=== PATIENT | female | born 1990 | race Caucasian/White ===

== ENCOUNTER 2017-09-12 13:27 | Emergency (ER) | payer OTHER, SELFPAY ==
[2017-09-12 13:28] VITALS: BP 137/72; PULSE 85; RESP 14; TEMP 37; O2SAT 100; BMI 34.2
--- NOTE | 2017-09-12 13:45 | RAD_ITS ---
STUDY: X-RAY CHEST REASON FOR EXAM: Female, 26 years old. Shortness of breath. TECHNIQUE: Single AP portable view of the chest. COMPARISON: Comparison is made with prior study dated December 16, 2015. FINDINGS: EKG electrodes are seen. The lungs are clear and expanded. There is no demonstrated pleural abnormality. Normal size heart. Normal mediastinum and arjun. Normal visualized pulmonary arteries. Normal visualized aortic arch and descending thoracic aorta. Normal visualized thoracic spine. Normal visualized ribs, clavicles, and shoulders. There is no demonstrated abnormality of the visualized soft tissue structures of the upper abdomen. RAD/Chest 1 View (Portable) IMPRESSION: Normal x-ray examination of the chest. Electronically Signed: Edd Jones MD at 14:10 EDT Tel [phone], Service support ,
--- NOTE | 2017-09-12 13:45 | EKG12_ITS ---
Test Reason : DIZZINESS Blood Pressure : / mmHG Vent. Rate : 067 BPM Atrial Rate : 067 BPM P-R Int : 124 ms QRS Dur : 086 ms QT Int : 414 ms P-R-T Axes : 035 055 054 degrees QTc Int : 437 ms Normal sinus rhythm Normal ECG Confirmed by INDRA BARRIOS, MIROSLAVA ([id number]), continuity editor BRIANNA DANIEL ([id number]) on 09/17/2017 1:35:46 PM Referred By: BENJAMIN Confirmed By:MIROSLAVA BURRELL MD
[2017-09-12 13:52] LABS: Absolute Lymphocyte Count 2.15 X10^3/ul (0.83-4.51); Absolute Neutrophil Count 3.8 X10^3/uL (2.0-7.7); Basophil# 0.02 X10^3/uL; Basophil% 0.3 % (0-1); Eosinophil# 0.05 X10^3/uL; Eosinophils% 0.8 % (0-5); Hematocrit 41.8 % (37-47); Hemoglobin 14.3 g/dl (12.0-15.0); Lymphocyte # 2.15 X10^3/ul (4.0); Lymphocyte % 33.2 % (19-41); Mean Corp Hgb Conc 34.2 g/gl (32-36); Mean Corpuscular Hgb 30.6 pg (27.0-32.0); Mean Corpuscular Volume 89.5 fL (81-99); Mean Platelet Vol. 10.8 fl (6.2-12.0); Monocyte% 7.7 % (0-10); Neutrophil # 3.75 X10^3/uL (2.7-7.7); Neutrophil % 57.8 % (47-70); POSITIVE COUNT NO; POSITIVE DIFFERENTIAL NO; POSITIVE MORPHOLOGY NO; Platelet Count 259 K/mm3 (150-450); RBC Distribution Width CV 12.4 % (11.6-14.6); RBC Distribution Width SD 40.1 fl (35.1-43.9); Red Blood Count 4.67 M/mm3 (4.2-5.4); White Blood Count 6.5 K/mm3 (4.4-11.0)
--- NOTE | 2017-09-12 13:55 | CT_ITS ---
STUDY: CT BRAIN WITHOUT CONTRAST REASON FOR EXAM: Female, 26 years old. Dizziness. Near syncopal episode. RADIATION DOSAGE (If Supplied By Facility): CTDIvol = ( 44.99 ) mGy, DLP = ( 779.24 ) mGycm TECHNIQUE: Transaxial CT imaging of the brain was performed without administration of intravenous contrast material. Individualized dose optimization techniques were used for this CT. COMPARISON: None. FINDINGS: Normal soft tissue structures. Normal calvarium. Normal size ventricles and extra-axial spaces for the patient's age. Normal white matter tracts of the cerebral hemispheres. Normal basal ganglia and thalami. Normal brainstem. Normal cerebellum. There is no intracranial hemorrhage. There are no findings of an acute ischemic infarction. Mild degree of mucosal thickening of the ethmoid sinuses. CT/Brain/Head without Contrast IMPRESSION: Mild degree of mucosal thickening of the ethmoid sinuses. Electronically Signed: Edd Jones MD at 14:42 EDT Tel [phone], Service support ,
--- NOTE | 2017-09-12 13:59 | ED.DCSUM_ITS ---
- ER Visit Summary Date of Service: 09/12/17 Chief Complaint: [] Dizzy spells on and off for weeks History of Present Illness: The patient is a 26 F [] she reports had dizzy spells on and off for weeks that paroxysmally caused her to feel as if things are spinning she works here in the surgery area, she went to lunch at right after lunch she began to have sense of spinning sensation she needed to lay down she did not have syncope, she has no headache no change in vision #6 paresthesias. Her review of systems otherwise negative no fever no cough she is status post hysterectomy distant as such denies her bowel and bladder habits have been normal No other trigger triggers or exacerbates the dizzy spells that simply come on paroxysmally she usually just lays down until the past she has no HEENT or ear symptoms or findings, she has not seen her physicians yet for this Physical Examination: [] Her vital signs are within normal range her pupils equal reactive extra muscles are full her neck is very supple the lungs are clear the heart tones are normal oral cavity is unremarkable moist lungs are clear the heart tones are clear the abdomen soft slightly BMI 34, upper lower extremities unremarkable neurologically cranial nerves are intact there is full range of extraocular muscles without nystagmus the upper extremities exam is normal motion sensation lower extremity exam normal since sensation her speech is clear and his understand her visual daniel are intact Test Results: [] Emergency Department Course and Treatment: [] Patient's labs EKG all generally unremarkable, head CT shows nothing acute but some ethmoid thickening Patient does not have any clinical signs of sinusitis whenever I was concerned that the ethmoid thickening could be early sinusitis contributing to her intermittent dizziness I explained this to her at this time she will be started on Flonase Augmentin Mucinex Antivert fu her family doctor return for change in symptoms States she is feeling better she understands all the above return for change in symptoms Treatment Plan: [] Disposition: [] Stable Impression: [] Intermittent dizziness, possible ethmoid sinusitis This note was generated with [employer] dictation software. It may contain incorrect words, spelling, and punctuation that were not noted in review of the chart prior to signing ED Disposition - Plan for ED Patient: Chief Complaint: Syncope Referrals: Ty Wong MD [Primary Care Provider] -
[2017-09-12] MEDS: 0.9% Normal Saline 1,000 ML 1000 ML IV (14:03)
[2017-09-12 14:05] LABS: Anion Gap 9 (5-15); BUN 19 mg/dL (7-18); BUN/Creat Ratio 18.8 RATIO (10-20); Calcium,Total 9.1 mg/dL (8.5-10.1); Chloride 105 mmol/L (98-107); Creatinine, Serum 1.01 mg/dL (0.55-1.02); EST Glomerular Filtration Rate 70 mL/min (>60); Est Glom Filt Rate - Afr Amer 84 mL/min (>60); Glucose 82 mg/dL (74-106); Potassium 4.1 mmol/L (3.5-5.1); Sodium Level 142 mmol/L (136-145)
[2017-09-12 14:10] LABS: Pregnancy, Serum, hCG Quali. NEGATIVE Negative (0-9 Nonpreg)
--- NOTE | 2017-09-12 14:56 | ED.DEP ---
ED Disposition - Plan for ED Patient: Chief Complaint: Syncope Instructions: ED Dizziness Syncope Fainting W Pre, ED Sinusitis Abx Tx Prescriptions: levoFLOXacin tablet [Levaquin tablet] 750 mg PO DAILY #10 tab Meclizine HCl [Antivert] 25 mg PO TID PRN PRN #20 tab PRN Reason: Dizziness Fluticasone Propionate [Flonase Allergy Relief] 15.8 ml NS BID #14 spray.susp Guaifenesin [Mucinex] 1,200 mg PO BID #10 tbmp.12hr Referrals: Ty Wong MD [Primary Care Provider] -
[2017-09-12 15:24] VITALS: BP 132/70; PULSE 78; RESP 16; O2SAT 97
== END 2017-09-12 15:25 | disposition home or self-care (01) ==
LOC: ED 14:36
PROVIDERS: Emergency Provider Emergency Medicine; Family Provider Family Medicine; PCP Family Medicine
DX: J32.2 Chronic ethmoidal sinusitis (principal); R42 Dizziness and giddiness
CPT/HCPCS: 70450; 71045; 80048; 84703; 85025; 93005; 99283; J7030; A4216

== ENCOUNTER 2017-09-16 09:06 | Emergency (ER) | payer OTHER, SELFPAY ==
[2017-09-16 09:07] VITALS: BP 132/92; PULSE 82; RESP 18; TEMP 36.9; O2SAT 100; BMI 34.3
--- NOTE | 2017-09-16 09:17 | RAD_ITS ---
STUDY: X-RAY - LUMBAR SPINE REASON FOR EXAM: Female, 26 years old. Low back pain and bilateral lower extremity pain following injury. TECHNIQUE: 3 view(s) of the lumbar spine were obtained. COMPARISON: None FINDINGS: Normal lumbar lordosis. There is no substantial scoliosis. There is a normal alignment of the vertebrae. Normal vertebral bodies and endplates. Normal disc space heights. There is lumbarization of the S1 vertebrae. The soft tissue structures are unremarkable. RAD/Lumbar Spine 2 or 3 Views IMPRESSION: Normal x-ray examination of the lumbar spine. Electronically Signed: dEd Jones MD at 10:15 EDT Tel [phone], Service support ,
--- NOTE | 2017-09-16 09:21 | ED.DCSUM_ITS ---
- ER Visit Summary Date of Service: 09/16/17 Chief Complaint: Back pain History of Present Illness: The patient is a 26 F with low back pain that started suddenly yesterday. She was at the gym and putting down a 40 pound weight bar. The pain is in her lower back and it is worse with moving and bending. She never had this before. She took some Tylenol this morning with minimal relief. Patient has a history of anxiety, depression, bipolar disorder , hysterectomy, C-sections, and ankle surgery. Physical Examination: Vital signs unremarkable. Afebrile. Patient is sitting upright, self bracing her back. Appears uncomfortable but not toxic or in distress. Heart regular. No respiratory distress. Abdomen soft and nontender. Back is tender to palpation over the lower lumbar spine. Straight leg raise negative. Neurovascular intact distally. Good strength and sensation. Skin appears normal. Test Results: Because of the midline spine pain, x-rays were obtained. Emergency Department Course and Treatment: Patient was treated with Norflex and Toradol while awaiting results of her x-rays. Patient had continued pain and also received a dose of subcutaneous Dilaudid. X -ray's were negative. Patient had continued pain but was able to ambulate. She had good strength, sensation, and normal reflexes. She has no findings to suggest infection. Nothing to suggest a nerve issue, fracture, or vascular issue. I suspect this is myofascial back pain from a spasm. She will be prescribed anti-inflammatories and Flexeril. She will go home to rest and follow-up with her PCP. Return for any new or worsening issues. Treatment Plan: As above Disposition: Discharged Impression: 1. Acute low back pain This note was generated with [employer] dictation software. It may contain incorrect words, spelling, and punctuation that were not noted in review of the chart prior to signing ED Disposition - Plan for ED Patient: Chief Complaint: Back Referrals: Ty Wong MD [Primary Care Provider] -
[2017-09-16] MEDS: Orphenadrine 60 MG/2 ML Ampul IM (09:23)
[2017-09-16] MEDS: Ketorolac 30 MG/ML Syringe IM (09:24)
[2017-09-16] MEDS: HYDROmorphone 1 MG/ML Syringe SC (10:11)
--- NOTE | 2017-09-16 10:50 | ED.DEP ---
ED Disposition - Plan for ED Patient: Chief Complaint: Back Instructions: ED Spasm Back No Trauma Prescriptions: Naproxen [Naprosyn] 500 mg PO BID PRN #20 tab Cyclobenzaprine [Flexeril] 10 mg PO TID PRN #20 tab PRN Reason: Muscle Spasm Referrals: Ty Wong MD [Primary Care Provider] -
[2017-09-16] MEDS: Triamcinolone Acetonide 40 MG/ML Vial IM (11:04)
[2017-09-16 11:07] VITALS: BP 125/86; PULSE 86; RESP 17; O2SAT 98
[2017-09-16] MEDS: HYDROcodone Bitartrate/Apap 5/325 Tablet PO (11:43)
== END 2017-09-16 11:44 | disposition home or self-care (01) ==
PROVIDERS: Emergency Provider Emergency Medicine; Family Provider Family Medicine; PCP Family Medicine
DX: M54.5 Low back pain (principal); F41.9 Anxiety disorder, unspecified; F31.9 Bipolar disorder, unspecified; B00.9 Herpesviral infection, unspecified; Z79.899 Other long term (current) drug therapy
CPT/HCPCS: 72100; 96372; 99282

== ENCOUNTER → 2017-10-02 10:53 | Outpatient (CLI) | payer OTHER, SELFPAY ==
[2017-10-02 13:27] LABS: Rubella IgG 98.8 IU/mL
[2017-10-04 10:15] LABS: Hep B Surface Antibodies Reactive (.); Mumps Antibody,IgG < 9.0 AU/mL (Immune >10.9); Rubeola IgG Ab < 25.0 AU/mL (Immune >29.9); V-Zoster IgG (Immunity) 452 index (Immune >165)
== END ==
PROVIDERS: Family Provider Family Medicine; PCP Family Medicine; Visit Provider Family Medicine
DX: Z02.89 Encounter for other administrative examinations (principal)
CPT/HCPCS: 36415; 86706; 86735; 86762; 86765; 86787

== ENCOUNTER → 2017-10-04 10:13 | Outpatient (CLI) | payer OTHER, SELFPAY ==
--- NOTE | 2017-10-04 10:14 | US_ITS ---
STUDY: THYROID ULTRASOUND REASON FOR EXAM: Female, 26 years old. Asymmetric thyroid enlargement, right larger than left TECHNIQUE: Ultrasound evaluation of the thyroid was performed with real-time and static santana-scale imaging. COMPARISON: None. FINDINGS: RIGHT LOBE: The right lobe of the thyroid gland measures 5.7 x 1.9 x 1.6 cm. There is a homogeneous echotexture. There are 2 solid nodules of the right thyroid lobe extending into the isthmus. The nodules measure 1.7 x 1.7 x 1.5 cm and 2.4 x 1.8 x 1.6 cm. Both nodules are slightly hypoechoic with well-defined relatively hypoechoic capsule. No microcalcifications are seen. There is mild degree of intrinsic vascular flow both nodules. LEFT LOBE: The left lobe of the thyroid gland measures 4.3 x 1.7 x 1.2 cm. There is a homogeneous echotexture. Solitary hypoechoic nodule measuring 9 mm without vascular flow, irregular margins or microcalcifications. ISTHMUS: The isthmus measures 4 mm. The regional lymph nodes are normal. US/Thyroid IMPRESSION: 1. Multinodular thyroid gland measures 2.4 cm on the right side. FNA sampling is recommended, per ACR guidelines. Electronically Signed: Diego Becker MD at 8:07 EDT , Service support ,
== END ==
PROVIDERS: Family Provider Family Medicine; PCP Family Medicine; Visit Provider Family Medicine
DX: E07.89 Other specified disorders of thyroid (principal)
CPT/HCPCS: 76536

== ENCOUNTER → 2017-11-07 08:24 | Outpatient (CLI) | payer OTHER, SELFPAY ==
--- NOTE | 2017-11-07 08:27 | NM_ITS ---
CLINICAL: 26-year-old female with reported history of thyroid nodularity I-123 THYROID UPTAKE and SCAN COMPARISON: Thyroid ultrasound report 10/04/2017 FINDINGS: The patient was administered a 309 uCi I-123 capsule by mouth. The 4-hour I-123 radioactive iodine thyroidal uptake was calculated to be 22.4 % (normal 5 to 25 %). The 24-hour I-123 radioactive iodine thyroidal uptake was calculated to be 44.9 % (normal 5 to 40 %). The I-123 thyroid scan demonstrates a focus of increased radiopharmaceutical concentration noted in the right lobe inferior pole-isthmus with otherwise relative decreased- homogeneous radiopharmaceutical concentration throughout remaining thyroid colloid of a U-shaped thyroid gland. There are no colloidal parenchymal hypofunctioning-cold nodules noted in either lobe of the thyroid gland. NM/Thyroid Uptake Single or Mult IMPRESSION: 1. UPPER LIMITS OF NORMAL 4- and abnormal elevated 24-hour I-123 radioactive iodine thyroidal uptakes. 2. 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 Electronically Signed: Jhonatan Peterson DO at 8:26 EDT Tel , Service support ,
== END ==
PROVIDERS: Family Provider Family Medicine; PCP Family Medicine; Visit Provider Family Medicine
DX: E04.1 Nontoxic single thyroid nodule (principal)
CPT/HCPCS: 78012; A9516

== ENCOUNTER → 2017-11-13 09:01 | Outpatient (CLI) | payer OTHER, SELFPAY ==
--- NOTE | 2017-11-12 14:30 | ASPS_PTH ---
PATIENT: KENDRA BARNES LOC: [facility] U#:[id number] AGE/SX: 34/F ROOM: RE11/13/[address]: Dr. Inder Manriquez MD : 1990 BED: DIS: SPEC #: [id number] RECD: 11/13/17 09:00 STATUS: YVETTE WILLIE #: [id number] LOUIE: 11/12/17 14:[address]: Inder Manriquez DEPT: CYTOLOGY RECD BY: Hong Tadeo ENTERED: 11/13/17 10:33 SP TYPE: ASPIRATION OTHR DR: Dr. Ty Wnog MD Tissues: A - Thyroid gland, NOS B - Thyroid gland, NOS C - Thyroid gland, NOS Procedures: Special Stain Group II Cytology Other HEADER OPERATION: Bilateral thyroid FNA PRE-OP DIAGNOSIS: Bilateral thyroid nodules TISSUE SUBMITTED: A ? Right thyroid inferior nodule 4 slides, B ? Left thyroid nodule 4 slides, C ? Right thyroid superior nodule 4 slides DIAGNOSIS CYTOLOGY A. Right thyroid, inferior nodule, FNA (smears): Cellular follicular lesion with atypical follicular cells of undetermined significance. Adequate for evaluation. B. Left thyroid nodule, FNA (smears): Atypical follicular cells noted, suspicious for papillary thyroid carcinoma. Adequate for evaluation. C. Right thyroid, superior nodule, FNA (smears): Atypical follicular cells of undetermined significance. Adequate for evaluation. SJ:rg 11/14/17 COMMENT Correlation with clinical, radiologic findings and appropriate follow up are necessary. Case has been reviewed in consultation with Dr. Sinha who concurs with the above diagnosis. IDC:AM CYTOLOGY STUDY Slides are reviewed. CYTOLOGY GROSS A - Received are four smears labeled with the patient's name and designated per the requisition as right thyroid inferior nodule. Submitted for staining. B - Received are four smears labeled with the patient's name and designated per the requisition as left thyroid nodule. Submitted for staining. C - Received are four smears labeled with the patient's name and designated per the requisition as right thyroid superior nodule. Submitted for staining. / 11/13/17 TC:5 CPT: 71720 x3
== END ==
PROVIDERS: Family Provider Family Medicine; PCP Family Medicine; Visit Provider Surgery
DX: E04.1 Nontoxic single thyroid nodule (principal)
CPT/HCPCS: 88161; 88313

== ENCOUNTER 2017-12-18 09:45 | Observation (INO) | payer OTHER, SELFPAY ==
[2017-12-16 07:53] LABS: Hematocrit 41.1 % (37-47); Hemoglobin 13.8 g/dl (12.0-15.0); Mean Corp Hgb Conc 33.6 g/gl (32-36); Mean Corpuscular Volume 89.3 fL (81-99); Mean Platelet Vol. 10.6 fl (6.2-12.0); Platelet Count 255 K/mm3 (150-450); RBC Distribution Width CV 12.5 % (11.6-14.6); RBC Distribution Width SD 40.4 fl (35.1-43.9); White Blood Count 7.8 K/mm3 (4.4-11.0)
[2017-12-16 07:54] LABS: Scan Indicated on CBC? Y/N NO
[2017-12-16 08:27] LABS: Anion Gap 14 (5-15); BUN 14 mg/dL (7-18); Calcium,Total 8.9 mg/dL (8.5-10.1); Chloride 105 mmol/L (98-107); EST Glomerular Filtration Rate 70 mL/min (>60); Est Glom Filt Rate - Afr Amer 85 mL/min (>60); Glucose 103 mg/dL (74-106); Phosphorus 3.2 mg/dL (2.5-4.9); Potassium 3.4 mmol/L (3.5-5.1); Sodium Level 145 mmol/L (136-145); Thyroid Stim Hormone (TSH) 1.36 uIU/mL (0.358-3.74)
[2017-12-18] VITALS (11 sets, daily range): BP systolic 111–144; BP diastolic 64–94; PULSE 75–118; RESP 16–18; TEMP 35.8–36.8; O2SAT 93–98; BMI 35.1
--- NOTE | 2017-12-18 | PARA_PTH ---
PATIENT: KENDRA BARNES LOC: [facility] U#:[id number] AGE/SX: 27/F ROOM: NC322 RE12/18/[address]: Dr. Inder Manriquez MD : 1990 BED: 1 DIS: 12/19/2017 SPEC #: [id number] RECD: 12/18/17 09:06 STATUS: YVETTE WILLIE #: [id number] LOUIE: 12/18/17 00:[address]: Inder Manriquez DEPT: SURGICAL PATHOLOGY RECD BY: Elisa Swanson ENTERED: 12/18/17 09:35 SP TYPE: PARATHY OTHR DR: Dr. Ty Wong MD Tissues: A - Parathyroid B - Lymph node of neck, NOS C - Thyroid gland, NOS D - Lymph node of neck, NOS E - Lymph node of neck, NOS Procedures: Frozen Section (charge) Surgery Specimen Level IV Surgery Specimen Level V Frozen (no charge) HEADER OPERATION: Thyroidectomy, total with central lymph node sampling PRE-OP DIAGNOSIS: Multiple thyroid nodules TISSUE SUBMITTED: A ? Sent fresh at 09 ? Is this lymph node or parathyroid? ? right superior neck lymph node, B ? Sent fresh at 09 ? left inferior neck lymph node or parathyroid?, C ? Total thyroid gland ? suture in anterior/superior aspect of right lobe ? sent in formalin, D ? Sent in saline fresh ? central compartment lymph node, E ? Sent in saline fresh ? additional left inferior neck lymph node FROZEN SECTION DIAGNOSIS A. Right superior neck, is this lymph node or parathyroid?, biopsy: Parathyroid tissue. SJ:roney 12/18/17 B. Left inferior neck lymph node, biopsy: Fibrofatty tissue. AM:roney 12/18/17 Case has been reviewed in consultation with Dr. Mccallum who concurs with the above diagnosis. IDC:CHRISTIANO MICROSCOPIC DIAGNOSIS A. Right superior neck soft tissue, biopsy: Parathyroid tissue. B. Left inferior neck lymph node, biopsy: Fibrofatty tissue. No evidence of lymphoid tissue. C. Thyroid, total thyroidectomy: Papillary thyroid carcinoma. One benign lymph node. See cancer checklist below. See comment. D. Central compartment lymph node, biopsy: Parathyroid tissue. E. Additional inferior neck soft tissue, biopsy: Four out of four lymph nodes negative for malignancy. AM:roney 12/20/17 COMMENT THYROID CANCER SUMMARY: Procedure ? total thyroidectomy Specimen integrity - intact Specimen size ? right lobe 4 x 3 x 2 cm, left lobe 3 x 2.5 x 1 cm and isthmus 1.5 x 0.5 x 0.5 cm Specimen weight ? 18.4 gm Tumor focality ? multifocal (right lobe, left lobe and extending into isthmus) Dominant tumor: Tumor laterality ? right lobe Tumor size ? right lobe dominant tumor ? 3 x 1.5 x 1.2 cm Right lobe mass ? 1.5 cm in diameter. Left lobe tumor ? 0.7 x 0.5 x 0.5 cm Histologic type ? papillary carcinoma Variant ? classical and follicular Margins ? uninvolved by carcinoma Tumor capsule ? not present Lymph-Vascular invasion ? not identified Extrathyroidal extension ? not identified Lymph nodes (specimens C & E) Number examined ? 5 out of 5 lymph nodes with no evidence of metastasis. Additional pathologic findings ? colloid nodules PATHOLOGIC STAGE: pT2 N0 Mx The above summary is in compliance with [employer] (CAP) Cancer Protocols Checklist and [place] Joint Committee on Cancer (AJCC), Staging Manual, 8th Ed. All three tumors are similar in appearance and are completely contained within the thyroid gland. The margins are negative for all three tumors. No tumor has a capsule. No lymphvascular invasion is identified in any of the tumor. There is no extra parathyroidal extension or perineural invasion by carcinoma identified in any of the three tumors. Immunohistochemistry ([id number]) supports the above diagnosis. MICROSCOPIC DESCRIPTION Slides are reviewed. GROSS DESCRIPTION A - Received fresh for frozen section consultation labeled with the patient's name is a specimen designated lymph node/parathyroid tissue. The specimen consists of an irregular fragment of parker-pink soft tissue measuring 0.3 x 0.3 x 0.2 cm. The specimen is submitted in its entirety for frozen section consultation in one block. / AM: 12/18/17 B - Received fresh for frozen section consultation labeled with the patient's name is a specimen designated left inferior neck lymph node. The specimen consists of an irregular fragment of parker-pink soft tissue measuring 0.3 x 0.3 x 0.1 cm. The specimen is submitted in its entirety for frozen section consultation in one block. / AM: 12/18/17 C - Received in fixative is one container labeled with the patient's name and designated total thyroid, suture in anterior/superior aspect of right lobe. The specimen consists of a total thyroidectomy specimen weighing 18.4 gm. Also present in the container are two detached pieces of adipose tissue and pink-red soft tissue measuring 2 x 1.5 x 0.3 cm and 0.5 x 0.5 x 0.2 cm. The thyroid is oriented by a suture. The right lobe measures 4 x 3 x 2 cm and left lobe measures 3 x 2.5 x 1.5 cm and the isthmus measures 1.5 x 0.5 x 0.5 cm. The suture appears to be present in the anterior-inferior aspect of the lobe. No external parathyroid tissue is identified. The specimen is inked as follows: posterior surface right lobe, left lobe and isthmus ? black, anterior surface right lobe ? blue, anterior surface left lobe ? green and anterior surface isthmus ? yellow. Serial sections of the left lobe reveal a parker, solid nodule in the lower portion of the left lobe measuring 0.7 x 0.5 x 0.5 cm. This nodule focally also extends into the isthmus. Sections of the right lobe reveal two nodules in the middle and lower portion of the thyroid lobe. Both nodules are present side by side. One of the nodules has parker-white appearance and measures 1.5 cm in diameter and the second nodule has parker-pink solid cut surfaces and measures 3 x 1.5 x 1.2 cm. The entire specimen is submitted in 17 cassette as follows: 1 ? detached pieces of tissue, 2 ? isthmus, 3-8 ? left lobe (cassettes 5 & 6 contain the nodule, cassette 3 contains the most superior portion of the thyroid lobe and cassette 8 contains the most inferior portion of the thyroid lobe), 9-17 ? right lobe (9 contains the most superior portion of the lobe and 17 contains the most inferior portion of the lobe). / SJ:roney 12/19/17 D - Received in saline is one container labeled with the patient's name and designated central compartment lymph node. The specimen consists of an irregular fragment of yellow fatty tissue measuring 1.5 x 1 x 0.2 cm. The specimen is submitted in its entirety in one cassette. / AM:roney 12/18/17 E - Received in saline is one container labeled with the patient's name and designated additional inferior neck. The specimen consists of multiple irregular fragments of yellow fatty tissue that in aggregate measure 2.5 x 1.5 x 0.2 cm. The specimen is submitted in its entirety in one cassette. / AM:roney 12/18/17 TC:0 CPT: 83811, 15034 x4, 91770 x2
--- NOTE | 2017-12-18 | IMM_PTH ---
PATIENT: KENDRA BARNES LOC: [facility] U#:[id number] AGE/SX: 27/F ROOM: MS322 RE12/18/[address]: Dr. Inder Manriquez MD : 1990 BED: 1 DIS: 12/19/2017 SPEC #: [id number] RECD: 12/23/17 14:30 STATUS: YVETTE REQ #: [id number] LOUIE: 12/18/17 00:[address]: Inder Manriquez DEPT: IMMUNOHISTOCHEMISTRY RECD BY: Elisa Swanson ENTERED: 12/23/17 14:32 SP TYPE: IMMUNO OTHR DR: Dr. Ty Wong MD Tissues: C - Thyroid gland, NOS Procedures: CD56 (add) CK19 (add) GAL-3 (add) TTF1 (add) TTF1 (initial) PHYSICIAN & INSTITUTION [place] [id number] SPECIMEN INFORMATION: Tissue Source: C ? Total thyroid gland Clinical Info: Multiple thyroid nodules Specimen Number: [id number] C CPT code: 45403, 13045 x10 METHODOLOGY: Deparaffinized sections of prefer/formalin-fixed tissue or PAP/DQ stained slides are incubated with monoclonal/polyclonal antibodies/oligonucleotide probes. Localization is made via biotin free immunoperoxidase method. Appropriate controls are performed and reacted as expected. Results on target cell population are indicated in the following table: RESULTS: ANTIBODY / CLONE RESULT Block C5 TTF-1 (8G7G3/1) positive GAL3 (9C4) positive CK19 (A53-B/A2.26) positive CD56 (123C3.D5) negative Block C10 GAL3 (9C4) negative CK19 (A53-B/A2.26) negative CD56 (123C3.D5) negative Block C16 TTF-1 (8G7G3/1) positive GAL3 (9C4) positive CK19 (A53-B/A2.26) positive CD56 (123C3.D5) negative These tests were developed and their performance characteristics determined by [facility]. They may not have been cleared or approved by the U.S. Food and Drug Administration. The FDA has determined that such clearance or approval is not necessary. INTERPRETATION: C. Total thyroid gland, thyroidectomy: Papillary thyroid carcinoma. AM:roney 12/26/17 Case has been reviewed in consultation with Dr. Mccallum who concurs with the above diagnosis. IDC:CHRISTIANO
--- NOTE | 2017-12-18 06:57 | PCM.DC.GS ---
<Inder Manriquez - Last Filed: 12/18/17 06:57> Discharge Diet: Light diet - advance as tolerated - if you have questions about your diet instructions, please talk to you doctor. Discharge Activity: May Not Drive - for 1 week or while taking narcotic pain medicine. May shower in (days): 1 Lifting Restrictions: 10 pounds Call your doctor if your incision/area has: Continuous Slow Oozing, Sudden Increased Bleeding, Increased Pain/ Swelling, Increased Redness, Foul Smelling Discharge Call your doctor if you observe: Fever of 101 or Higher Suture Line Care: Avoid Pulling/Pushing, Avoid Pinching/Bending Additional Dressing/Incision Instructions:: You may cover your incision with gauze and tape as needed to help protect from clothing. The surgical glue will gradually wear off over 1-2 weeks Allergies/Adverse Reactions: Allergies Penicillins Allergy (Verified 12/09/17 10:24) Hives hydroxyzine [From Vistaril] Adverse Reaction (Verified 12/09/17 10:24) makes me angry Medications to take at Discharge buPROPion SR [Wellbutrin SR (150mg tablets)] 150 mg PO BID 12/16/15 Lamotrigine [Lamictal Xr] 100 mg PO BID 03/25/16 Valacyclovir HCl [Valacyclovir] 500 mg PO DAILY 09/22/16 traZODone [Desyrel] 50 mg PO QHS PRN PRN 09/22/16 Amitriptyline HCl 25 mg PO QHS 05/22/17 Hydrocodone Bitart/Apap 5-325 [[place] 5MG-325MG] 1 tablet PO Q6H PRN PRN 2 Days #8 tablet 12/18/17 Levothyroxine [Synthroid] 150 mcg PO DAILY #90 tab 12/18/17 Calcitriol [Rocaltrol] 0.25 mcg PO BID #28 cap 12/19/17 Calcium Citrate 200 mg PO TID #42 tab 12/19/17 Cholecalciferol (VIT D3) [Vitamin D3] 2,000 unit PO BID #56 tab 12/19/17 The following prescriptions were given: Hydrocodone Bitart/Apap 5-325 [[place] 5MG-325MG] 1 tablet PO Q6H PRN PRN 2 Days #8 tablet PRN Reason: Pain Levothyroxine [Synthroid] 150 mcg PO DAILY #90 tab Calcitriol [Rocaltrol] 0.25 mcg PO BID #28 cap Cholecalciferol (VIT D3) [Vitamin D3] 2,000 unit PO BID #56 tab Calcium Citrate 200 mg PO TID #42 tab Primary Care Physician: Ty Wong MD [Primary Care Provider] - Test Results: Test results from this visit will be discussed in further detail at your follow-up appointment, if applicable. Please Follow Up With: Inder Manriquez MD - [phone] When: Call to make an appointment to be seen in about 10 days. <Piper Raphael - Last Filed: 12/19/17 14:11> Test Results: Test results from this visit will be discussed in further detail at your follow-up appointment, if applicable.
[2017-12-18] MEDS: Bupivacaine 0.5% PF 10 ML VIAL ×2 (09:42)
--- NOTE | 2017-12-18 09:52 | PCM.OPRPT ---
Problem List (1) Multiple thyroid nodules Status: Acute Report of Operation Date of Procedure: 12/18/17 Pre-Operative Diagnosis: Atypical bilateral thyroid nodules Post-Operative Diagnosis: Same Surgery/Procedure Performed:: Total thyroidectomy, central lymph node inspection Description of Surgical Findings:: Timeout and informed consent was obtained. 27-year-old female was taken out from placement table under general ventricular-based anesthesia. Neck was gently extended and her neck was prepped transverse suprasternal incision was created sharp dissection was carried down through the substance tissue densities small flaps were raised the strap muscle was incised vertically and then a portion of the left strap muscle was incised this gain access to the superior pole of the left tedious sharp and blunt dissection using Harmonic scalpel and were needed hemoclips were used for hemostasis superior pole vessels identified secured then the middle thyroidal vein was identified secured all with harmonic scalpel the inferior pole a stress test there was some fatty 550 fullness and I carefully dissected free identifying the parathyroid and that portion of the tissue great care was taken to dissect directly upon the gland I was then able to rotate the gland anterior and see the course of the recurrent laryngeal nerve. Dissection was performed directly upon the posterior aspect of the gland as it was dissected off the anterior surface the trachea. The pyramidal lobe was then dissected free carefully was Harmonic Scalpel. In a similar fashion I address the right lobe which was larger than the left and had several extra nodules. Carefully and tediously the superior pole inferior pole and then medial aspect was addressed the gland could be rotated anteriorly and then I could identify the location of the superior parathyroid on the right inferior parathyroid on the right the course of the recurrent laryngeal nerve that dissection was performed directly off the anterior surface of trachea as on the left third ligament of various transected again were needed hemo-stasis was obtained with the harmonic and hemoclips if needed the gland was removed the sutures placed in the anterior superior aspect the right lobe. That portion of the procedure actually went in a very expeditious fashion. I then took some central fibrofatty tissue from the mid inferior portion of the neck. I explored the inferior neck left neck area and submitted some tissue that I thought possibly held lymph nodes. Frozen section suggested some fibrofatty tissue I felt that there was likely some lymph node tissue in there. I then inspected the right mid neck area and so doing identified gland which I thought was lymph node I sampled that in the right mid neck ended up being parathyroid that the vein had only been sampled the remainder that is nicely in place and nicely vascularized. The position of the inferior right parathyroid identify the inferior left parathyroid identified. Palpation and visualization failed to reveal any gross lymph node enlargement. At this point felt that further dissection was not indicated. I placed fibular in each side of the neck. The wound was closed by approximating the strap muscles in the midline with interrupted 3-0 Vicryl at the position was approximately the same the skin edges affect interrupted 5-0 Vicryl subdermal stitches. The william-incisional areas anesthetized with 10 cc of 0.5% Marcaine. Surgical glue was applied followed by Telfa and tape dressings. Sponge and instrument and needle counts were reported the surgeon be correct. Blood loss was minimal. Specimens include the total thyroid. Tissue from the inferior left neck felt to be likely lymph node tissue. Tissue from the inferior midline neck. Tissue from the right mid neck which on frozen section was a very small sampled fragment of the right superior parathyroid. Drains none. Blood loss minimal. Inder Manriquez M.D., F.A.C.S. Type of Anesthesia:: General Anesthesiologist: Zaire Elizabeth
[2017-12-18] MEDS: Morphine 4 MG/ML Syringe IV ×2 (12:10→14:45)
[2017-12-18] MEDS: buPROPion (SR) 150 MG Tablet.SA PO ×2 (12:48→20:52)
[2017-12-18] MEDS: 0.9% NaCl Peripheral Flush Adult/Peds IV ×2 (14:46→15:05)
[2017-12-18] MEDS: lamoTRIgine 100 MG Tablet PO ×2 (14:51→20:52)
[2017-12-18] MEDS: Ondansetron 4 MG/2 ML Vial IV (15:04)
[2017-12-18 15:42] LABS: Calcium,Total 8.6 mg/dL (8.5-10.1)
--- NOTE | 2017-12-18 18:24 | PCM.PN.BLA ---
Progress Note Pt will slight voice waver [place] positive neck supple Mild nausea Will continue to observe
[2017-12-18] MEDS: Calcitriol 0.25 MCG Capsule PO (19:22)
[2017-12-18] MEDS: Calcium Carbonate 500 MG Tablet 1000 MG PO (19:22)
[2017-12-18] MEDS: HYDROcodone Bitartrate/Apap 5/325 Tablet PO (19:22)
[2017-12-18] MEDS: Amitriptyline 25 MG Tablet PO (20:53)
[2017-12-18] MEDS: traZODone 50 MG Tablet PO (22:24)
[2017-12-18] MEDS: Lactated Ringers 1,000 ML 30 ML IV (22:29)
[2017-12-19 00:40] VITALS: BP 133/82; PULSE 84; RESP 14; TEMP 36.6; O2SAT 95
[2017-12-19] MEDS: Morphine 4 MG/ML Syringe IV ×2 (00:44→13:29)
[2017-12-19] MEDS: 0.9% NaCl Peripheral Flush Adult/Peds IV ×2 (00:45→13:29)
--- NOTE | 2017-12-19 05:37 | PCM.PN.SRG ---
Subjective: Pt more comfortable than yesterday - Physical Exam HEENT: - - supple, NT, [place] positive Vital Signs Temp Pulse Resp BP Pulse Ox 97.8 F 84 14 133/82 H 95 12/19/17 00:40 12/19/17 00:40 12/19/17 00:40 12/19/17 00:40 12/19/17 00:40 Oxygen Delivery Method Room Air Weight: 231 lb 0.711 oz Body Mass Index (BMI) 35.1 Intake and Output for Last 24 Hours 12/17/17 12/18/17 12/19/17 23:59 23:59 23:59 Intake Total 2835 / 2835 986 / 986 Output Total 1400 / 1400 1500 / 1500 Balance 1435 / 1435 -514 / -514 Laboratory Tests Past 24 Hrs 12/18/17 15:08 Calcium 8.6 Medical Necessity - Tobacco Use Smoking Status: Never smoker Tobacco Use: Cigarettes, Vapor Assessment/Plan All Active Problems (Last Updated 12/02/17 @ 14:32 by Melanie Laboy) Multiple thyroid nodules (Acute) Abdominal pain of unknown etiology (Acute) Voice wavers but a clear E is present Will await labs to determine homegoing meds
[2017-12-19 05:43] VITALS: BP 120/68; PULSE 97; RESP 16; TEMP 37; O2SAT 97
[2017-12-19] MEDS: HYDROcodone Bitartrate/Apap 5/325 Tablet PO ×3 (05:49→17:44)
[2017-12-19] MEDS: Levothyroxine 150 MCG Tablet PO (05:49)
[2017-12-19] MEDS: Calcium Carbonate 500 MG Tablet 1000 MG PO ×3 (09:22→15:58)
[2017-12-19] MEDS: lamoTRIgine 100 MG Tablet PO (09:24)
[2017-12-19] MEDS: buPROPion (SR) 150 MG Tablet.SA PO (09:24)
[2017-12-19] MEDS: Calcitriol 0.25 MCG Capsule PO (09:24)
[2017-12-19] MEDS: Acetaminophen 325 MG Tablet 650 MG PO (10:28)
--- NOTE | 2017-12-19 10:39 | NURSING ---
C/o Headache and neck pain. Tylenol given as it is not time for [place]. Pt laying in bed visiting with visitors. Has been walking [place] frequently this morning.
--- NOTE | 2017-12-19 14:51 | NURSING ---
Laying on Rt side in bed. Eyes closed. Appears to be sleeping. No distress.
[2017-12-19 15:53] VITALS: BP 123/64; PULSE 87; RESP 16; TEMP 37.1; O2SAT 97
[2017-12-19 17:03] LABS: Calcium,Total 8.7 mg/dL (8.5-10.1)
== END 2017-12-19 17:50 | disposition home or self-care (01) ==
LOC: SDC 10:46 → MS3 10:46
PROVIDERS: Admitting Provider Surgery; Family Provider Family Medicine; PCP Family Medicine; Visit Provider Surgery
PROC: (CPT 60240; principal; 2017-12-18 07:00)
DX: C73 Malignant neoplasm of thyroid gland (principal); F17.210 Nicotine dependence, cigarettes, uncomplicated; F31.9 Bipolar disorder, unspecified; Z79.899 Other long term (current) drug therapy; J45.909 Unspecified asthma, uncomplicated; F41.9 Anxiety disorder, unspecified
CPT/HCPCS: 00320; 60240; 36415; 80048; 82310; 84100; 84443; 85027; 88305; 88307; 88331; 88341; 88342; 94762; 96374; 96375; 96376; 99218; J7120; A4216; G0378; G0379; J2405

== ENCOUNTER → 2017-12-25 10:53 | Outpatient (CLI) | payer OTHER, SELFPAY ==
[2017-12-25 11:23] LABS: Calcium,Total 9.1 mg/dL (8.5-10.1)
== END ==
PROVIDERS: Family Provider Family Medicine; PCP Family Medicine; Visit Provider Physician Assistant
DX: E04.2 Nontoxic multinodular goiter (principal)
CPT/HCPCS: 36415; 82310

== ENCOUNTER → 2018-01-02 12:46 | Outpatient (CLI) | payer OTHER, SELFPAY ==
[2018-01-02 13:18] LABS: Calcium,Total 9.1 mg/dL (8.5-10.1)
== END ==
PROVIDERS: Physician Assistant; Family Provider Family Medicine; PCP Family Medicine; Visit Provider Surgery
DX: E83.51 Hypocalcemia (principal); C73 Malignant neoplasm of thyroid gland; E03.9 Hypothyroidism, unspecified
CPT/HCPCS: 36415; 82310; 84443

== ENCOUNTER → 2018-02-24 14:36 | Outpatient (CLI) | payer OTHER, SELFPAY ==
[2018-02-24 17:18] LABS: Free T3 < 0.5 pg/mL (2.18-3.98); T4 Free Direct 0.14 ng/dL (0.76-1.46)
== END ==
PROVIDERS: Family Provider Family Medicine; PCP Family Medicine; Referring Provider Internal Medicine Endocrinology, Diabetes & Metabolism; Visit Provider Internal Medicine Endocrinology, Diabetes & Metabolism
DX: E04.2 Nontoxic multinodular goiter (principal)
CPT/HCPCS: 36415; 84439; 84443; 84481

== ENCOUNTER → 2018-02-26 08:30 | Outpatient (CLI) | payer OTHER, SELFPAY ==
--- NOTE | 2018-02-26 08:33 | NM_ITS ---
CLINICAL: 27-year-old female with history of thyroid carcinoma presenting for diagnostic I-131 whole body scintigraphy status post thyroidectomy. I-131 WHOLE BODY SCINTIGRAPHY COMPARISON: None available FINDINGS: Following the oral administration of 4.28 mCi of I-131, whole body images obtained at 48 hours post radiopharmaceutical administration reveal: 1. Prominent radiopharmaceutical concentration is identified in the anterior midline neck-thyroid bed. 2. Normal physiologic distribution of the radiopharmaceutical is identified in the facilitated uptake is noted within the stomach, intestinal tract, the urinary bladder. NM/Thyroid Whole Body I-131 Scan IMPRESSION: 1. The increase in radiopharmaceutical concentration identified in the anterior midline neck-thyroid bed is most consistent with visualization of a postoperative thyroid remnant. 2. There is no definitive scintigraphic evidence of iodine avid distant metastatic disease. Electronically Signed: Jhonatan Peterson DO at 23:12 EDT Tel , Service support ,
== END ==
PROVIDERS: Family Provider Family Medicine; PCP Family Medicine; Referring Provider Internal Medicine Endocrinology, Diabetes & Metabolism; Visit Provider Internal Medicine Endocrinology, Diabetes & Metabolism
DX: C73 Malignant neoplasm of thyroid gland (principal)
CPT/HCPCS: 78018; A9528

== ENCOUNTER 2018-04-15 09:00 | Outpatient (RCR) | payer OTHER, SELFPAY ==
--- NOTE | 2018-04-15 09:10 | BH.SGPN.GN ---
Behaviors/Verbalizations/Mental Status: [] Eye contact is good. Motor activity is appropriate. Appearance is casual. Speech is Appropriate. Mood is anxious. Affect is congruent. Thoughts are linear and logical. No evidence of psychosis. Reviewed daily check in sheet and no reports of suicidal ideations or intent. Client Response/Progress/Benefit: [] Pt participated in group discussion. Emotion for today is anxious. This is pt's first day in the IOP program and she reports being very anxious. Shared that she has been trying hard to not cry all morning. She reports that crying spells have been very frequent for her. Reports that she started IOP to find ways to better manage her anxiety and depression. Group provided support and there was a positive discussion on managing how other's reaction when we cry. No progress noted as this was pt's first day. Hesitant to share however was attentive. Benefited from group support and encouragement. 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 Narrative Note: []
--- NOTE | 2018-04-15 10:10 | BH.SGPN.GN ---
Behaviors/Verbalizations/Mental Status: [] Pt eye contact good, casually dressed, motor activity appropriate, speech normal rate and tone, mood euthymic, congruent affect, thoughts linear and intact, no evidence of delusions or hallucinations. Client Response/Progress/Benefit: []Pt passive participant AEB pt listening to others and only contributing to discussion if elicited by therapist. Pt's passive participant could be attributed to the fact it's pt's first day in IOP. Pt appeared to agree with peers that utilizing healthy skills is difficult because it's easier to revert back to old ways of coping AEB pt nodding her head. Pt identified three things she learned from session is: isolation can cause increased problems, increased awareness of how negative coping impacts her, and build a strong base of healthy coping to help manage stressors. Pt seemed to benefit from increased awareness of impact unhealthy coping has on her functioning. Narrative Note: []
--- NOTE | 2018-04-15 11:15 | BH.SGPN.GN ---
Behaviors/Verbalizations/Mental Status: [] Pt eye contact good, casually dressed, motor activity appropriate, speech normal rate and tone, mood depressed, congruent affect, thoughts linear and intact, no evidence of delusions or hallucinations. Client Response/Progress/Benefit: []Pt contributing to group if elicited by therapist and listened attentively to others. Pt worked cooperatively with peers to identify various healthy coping skills. Pt recognized importance of having healthy internal skills, not an overreliance on just one category of healthy skills. Pt identified five healthy coping skill she is willing to practice includes: talking with others, journaling, mindful eating, positive affirmations, and taking an outside perspective of different situations. Pt seemed to benefit from increasing repertoire of healthy coping as well as identifying 5 skills she is willing to practice. Pt to continue IOP level of care to decrease depression, increase open communication, and prevent decompensation. Narrative Note: []
--- NOTE | 2018-04-17 09:00 | BH.SGPN.GN ---
Behaviors/Verbalizations/Mental Status: [] Eye contact is good. Motor activity is appropriate. Appearance is casual. Speech is Appropriate. Mood is anxious. Affect is congruent. Thoughts are linear and logical. No evidence of psychosis. Reviewed daily check in sheet and no reports of suicidal ideations or intent. Client Response/Progress/Benefit: [] Pt was an active participant in group discussion. Emotion for today is Marla and reports feeling welcome. Reports that she was anxious about starting the IOP program two days ago however believes that the groups are already proving beneficial stating that she has not cried in two days. Reports that crying spells were daily and occurred several times throughout the day. Feeling more supported and not alone in depression. Shared that she is stressed about the upcoming week as she has radioactive iodine treatment and has to isolate per physician orders. She cannot have contact with family and spends her day alone watching TV. Also unable to attend IOP. Group discussed her strategy for managing her emotions next week and she states nothing I can do. Group provided some suggestions and feedback. Progress noted per pt report. Will continue in IOP to prevent decompensation, stabilize mood, improve functioning to return to work. Narrative Note: []
--- NOTE | 2018-04-17 10:00 | BH.SGPN.GN ---
Behaviors/Verbalizations/Mental Status: []Pt left group early to meet with IOP nurse. Pt was not billed for group service. Client Response/Progress/Benefit: [] Narrative Note: []
--- NOTE | 2018-04-17 10:50 | BH.NA ---
Physical Data - Vital Signs Pulse Rate: 82 - Height/Weight Height: 1.73 m Weight:: 106.141 kg Weight in Pounds: 234.0 lbs Current Medication Compliance - Medication Compliance Do you take your medication as prescribed?: Yes Do you need assistance with taking medication?: No Have you had side effects from medication?: No Nutritional History - Appetite Nutritional Instructions:: If client shows signs of a swallowing problem, weight change of 10 pounds or more in the last month, or is on a diabetic diet, the physician will review and request a dietitian consult, as appropriate. All unintentional weight loss will be referred to the physician for decision on need for dietitian consult. Describe your appetite:: Fair Have you noticed a change in your eating habits lately?: No Functional Assessment - Sleep Pattern Describe any problems with sleeping: Difficulty falling and staying asleep, which client attributes to rumination and anterior neck pain. - Activities Motor Activity:: Functional Sensory/Communication Assess - Vision Problems Do you have any vision problems?: Glasses - Hearing Problems Do you have any hearing problems?: Adequate - Communication Problems Do you have difficulty understanding what people are saying?: No Do you have trouble putting your thoughts into words or expressing what you want to say?: No Do people ever have trouble understanding what you say?: No What is your primary language?: Romanian Learning Assessment - Education What is your level of education?: Some College - Learning Barriers Learning Barriers:: Ready to learn Medical Problems/History - Metabolic Conditions Metabolic: Hypothyroidism - post-thyroidectomy - Cancer History Type of Cancer:: Thyroid - Pain Assessment Do you have acute or chronic pain?: Yes - Female Reproductive Do you think you may be ?: No Number of pregnancies:: 3 Number of children:: 2 Have you reached menopause?: No Do you have any history of breast disease?: No - Family History Family History: Family History (Last Reviewed 03/12/18 @ 13:27 by Melanie Laboy) Mother CAD (coronary artery disease) Surgical History - Surgical History Have you had any surgeries? If so, list type and date:: Yes - see PMHx Substance Abuse - Substance Abuse Please describe substance abuse in the last 30 days:: Social ETOH use, former occasional smoker (<2 pack years). Denies any substance use. <1 caffeinated beverage daily. Mental Status Summary - Mental Status Significant Findings/Observations on Appearance and Mood:: A&Ox4, casually dress with appropriate grooming and hygiene. Client is cooperative with interview and makes good eye contact. Activity is normal with steady gait. Speech is clear and of regular rate and volume. Moderate depression and anhedonia. Mood congruent and appropriate affect. Logical associations and normal process. Average knowledge and insight. No symptoms of delusions. Denies hallucinations, SI, and HI. Good attention and concentration. Suicide Assessment - Suicidal Ideation Are you currently or have you been suicidal in the past?: No Suicidal Intentional Rating Scale (SIRS): No suicidal thoughts (past or present) Physician Notification: If Active suicidal thoughts/Will not contract for safety is checked, contact physician and document in the Physician Notification section below. Assault History/Potential - History of Assault Do you have a history of assaulting someone?: No Physician Notification: If yes, notify physician and document notification date and time below. Past Psychiatric History - MH Treatment Hx Age of first mental health symptoms: 14 or 15 years old Fall Risk Assessment - Age Age: Less than 60 - Mental Status Mental Status: Willing & able to ask for assistance when needed - Physical Status Physical Status: No problems - Impairments Impairments: None - Elimination Elimination: Continent AND independent - Gait or Balance Gait or Balance: Walks independently - Hx of Falls History of falls in the past 6 months: No known history - Medications/Substances Psychotropics:: Antidepressants, Mood stabilizers Medications/substances used within the past 24 hours or ordered to administer: 3 or more of the medications/substances listed above - Total Score Total Points:: 2 RN Summary of Impressions - Impressions Recommendations: Include psychiatric and medical issues, treatment planning recommendations, and discharge planning needs. Impressions: Psychiatric Issues: bipolar disorder 2, MDD Impression: General Medical Conditions: papillary thyroid carcinoma s/p thyroidectomy - Level of Care How do the client's current symptoms and functional deficits support need for this level of care?: Client endorses uncontrollable crying, isolation, lack of interest in anything, and inability to work, all of which have been increasing in severity since her thyroid cancer diagnosis in Dec 2017 (4 months prior). She describes panic attacks during which she cries and has hyperventilation. Pelon is also having increasing difficulty falling asleep at night related to rumination and worry. She is able to identify that she is unable to perform her job responsibilities at this time, but the financial strain that comes with not working is causing strain on her marriage as she does not have any sick or vacation time remaining, thus is not having any income while she is off on FMLA. 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 She notes that she has struggled with depression since she was in high school, but has never had anything this severe. Client notes that she is still in shock about her cancer diagnosis, and has not processed or dealt with the emotional toll it is taking on her. IOP will promote gains, provide social support, prevent further decompensation, and establish coping skills for client to use.
--- NOTE | 2018-04-17 11:10 | BH.SGPN.GN ---
Behaviors/Verbalizations/Mental Status: [] Pt eye contact good, casually dressed, motor activity appropriate, speech normal rate and tone, mood euthymic, congruent affect, thoughts linear and intact, no evidence of delusions or hallucinations. Client Response/Progress/Benefit: []Pt active participant AEB pt engaging in group activity, contributing to discussion, and attentive to peers. When processing activity pt identified the group was able to be resilient by staying positive and focusing on the goal. Pt reported she has learned from session that it's important to use external positive influences to help reach your goal, learn from mistakes, and maintain positive thoughts. Pt reported on her stress ball she wrote take care of yourself. Pt shared that phrase will help remind her she can be resilient. Pt seemed to benefit from engaging in activity to rehearse the different resiliency building blocks. Pt to continue IOP level of care to increase positive thinking, decrease depression, and prevent decompensation. Narrative Note: []
[2018-04-17 13:43] VITALS: PULSE 82
--- NOTE | 2018-04-18 07:07 | BH.COMM ---
Communication Note - Communication with Client Communication Note: Called in to cancel today due to illness therefore will not be seen by psychiatrist. Pt will be out next week due to recieving radioactive iodine treatment. Plan is to return on 04/28/18
--- NOTE | 2018-04-18 12:07 | BH.MTP ---
[facility] Treatment Plan - Patient Information Program Physician:: Dr. Delgado Primary Therapist:: Patrizia Ferreira, [facility] - Psychiatric Diagnoses Psychiatric Diagnoses:: Major Depressive Disorder, Recurrent, Moderate Diagnosis Code(s):: F33.1 - Estimated LOS Estimated LOS (in weeks):: 6 Problem/Goal #1 - Problem/Goal #1 Stated Goal:: Client will reduce depression and feelings of hopelessness due to Major Depressive Disorder through Intensive Outpatient Program. Description of Barriers: Pt's poor communication, distorted thought patterns, low energy and negative self-talk could be barriers to treatment. Pt also will be off one week for cancer treatment and it is unknown how the treatment might physically impact her which could be barrier to treatment if pt unable to attend IOP consistently. Functional Impact: Pt's mental health symptoms are making it challenging for pt to complete work duties. 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 Pt stated although she is takign care of her kids basic needs she recognizes her depression is keeping her from being engaged with her kids. Pt having marital discord which exasperates pt's mental health symptoms. Pt not funcitoning at baseline. Goal Relevant Strengths/Supports: Pt is intelligent, resilient, and verbalizes motivation to get better. - Objectives Objective #1 Stated Objective: Client will identify 2-3 depressive thinking patterns and be able to challenge and replace negative thoughts. Interventions: Therapist will assist client in identifying depressive thinking patterns and provide client with resources to help teach client strategies in defeating negative thoughts. Discharge Criteria: Client will have met this objective when can identify at least two depressive thinking patterns and be able to defeat or reframe depressive thoughts. Target Date: 05/30/18 Review Date: 05/16/18 Objective #2 Stated Objective: Pt will decrease depressive symptoms AEB pt?s score on the DSM 5 cross-cutting measure and improve pt?s daily functioning. Interventions: Through groups and individual therapy, pt will be provided with education on cognitive distortions, mistaken beliefs, and identifying and combating negative self-talk. Therapist will assist pt with getting back into the activities she once enjoyed as well as increasing healthy coping strategies. Discharge Criteria: Pt will have met this goal when pt?s score on the DSM 5 cross cutting measure for depression has been decreased and per pt?s report daily functioning has improved. Target Date: 05/30/18 Review Date: 05/16/18 Problem/Goal #2 - Problem/Goal #2 Stated Goal:: Stabilize anxiety level while increasing ability to function on daily basis. Description of Barriers: Pt's poor communication, distorted thought patterns, low energy and negative self-talk could be barriers to treatment. Pt also will be off one week for cancer treatment and it is unknown how the treatment might physically impact her which could be barrier to treatment if pt unable to attend IOP consistently. Functional Impact: Pt's mental health symptoms are making it challenging for pt to complete work duties. 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 Pt stated although she is takign care of her kids basic needs she recognizes her depression is keeping her from being engaged with her kids. Pt having marital discord which exasperates pt's mental health symptoms. Pt not funcitoning at baseline. Goal Relevant Strengths/Supports: Pt is intelligent, resilient, and verbalizes motivation to get better. - Objectives Objective #1 Stated Objective: Client will learn and utilize 2-3 healthy coping strategies to manage anxious symptoms. Interventions: Therapist will assist client in learning internal coping strategies to manage anxious symptoms, along with helping client identify triggers. Discharge Criteria: Client will have achieved this goal when can verbalize and is consistently applying at least 2 healthy coping strategies to manage anxiety. Target Date: 05/30/18 Review Date: 05/16/18 Objective #2 Stated Objective: Pt will decrease anxious symptoms AEB pt?s score on the DSM 5 cross-cutting measure improve pt?s daily functioning. Interventions: Through groups and individual therapy, pt will be provided education about anxiety?s impact on body and common physiological reaction to anxiety. Therapist will teach pt appropriate breathing techniques and build healthy coping skills to manage daily anxieties. Discharge Criteria: Pt will have met this goal when pt?s score on the DSM 5 cross cutting measure for anxiety has been decreased and per pt?s report daily functioning has improved. Target Date: 05/30/18 Review Date: 05/16/18
--- NOTE | 2018-04-28 11:35 | BH.COMM ---
Communication Note - Communication with Client Communication Note: Spoke with pt this AM. She has completed her Radiation Iodine Treatment and is cleared to return to IOP program. She plans to attend , , and Saturday of this week.
--- NOTE | 2018-04-30 09:05 | BH.SGPN.GN ---
Behaviors/Verbalizations/Mental Status: [] Pt eye contact good, casually dressed, motor activity appropriate, speech normal rate and tone, mood dysthymic, constricted affect, thoughts linear and intact, no evidence of delusions or hallucinations. Reviewed client?s symptom tracker, no signs of suicidal ideation, plan, or intent as of today. Client Response/Progress/Benefit: []Pt listened attentively to others and added comments during discussion. Pt reported one positive is completing her cancer treatment last week. However, reported the negative is experiencing various side effects from the cancer treatment including difficulty concentrating and exhaustion. Pt initially struggled with identifying another positive, but eventually identified she kept herself entertained during cancer treatment by watching [place] movies. Pt seemed to benefit from support by peers. Pt to continue IOP level of care to decrease depression, increase use of healthy coping, and prevent decompensation. Narrative Note: []
--- NOTE | 2018-04-30 10:10 | BH.SGPN.GN ---
Behaviors/Verbalizations/Mental Status: [Client maintained good eye contact, casually dressed wearing a sweatshirt and hair straightened, motor activity appropriate, speech normal rate and tone, mood dysthymic, congruent affect, thoughts linear and logical, no evidence of delusions or hallucinations reported or observed.] Client Response/Progress/Benefit: [Client receptive of attending session and willingly participated in group AEB discussing group topic and completing reflection activity. Client made connections with input provided by fellow participants regarding stress and the various factors impacting stress levels. She provided a personal example of how ignoring a stressor can result in additional or more intense stress levels later on. Benefitted from increasing awareness of impact stressors have on mental health and ability to function when stress is not managed. Client expressed current stressors to include: her mental and physical health, having a cancer diagnosis, finances, relationships with others, and her job. Client progress noted in ability to connect minimization and avoidance with increased stress levels and difficulties in managing mental health symptoms. Client recommended continued IOP to improve ability to cope with current stressors, increase positive self-talk, and prevent decompensation.] Narrative Note: []
--- NOTE | 2018-04-30 11:17 | BH.SGPN.GN ---
Behaviors/Verbalizations/Mental Status: []Client alert and oriented, casual dress, hygiene good. Eye contact good. Motor activity appropriate. Speech within normal limits- trying to encourage others through humor. Affect full-smiling and laughing, mood euthymic. Thoughts linear, logical, no signs of hallucinations or delusions. Client Response/Progress/Benefit: []Client responded somewhat well to session, engaged in activity, but quiet during discussion. Client engaged in the activity and at first was using humor to encourage peers, but then she began to take herself out of the activity when she made a mistake. Client able to connect the activity to dealing with stress in her life. Client shared negative self-talk can negatively impact how one manages stress as it can lead to a ?I can?t? mindset. Client listened as the group identified strategies to increase stress management. Client helped the group process the four A?s of stress. Client stated she has been trying to work on acceptance of stressors out of her control. Client used her cancer diagnosis as an example of practicing acceptance. Client appeared to benefit from practicing in the moment coping strategies and learning techniques to better manage stress. Progress limited as missed a week due to radiation treatment. Client to continue IOP to reduce depression and increase mood stability.
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
--- NOTE | 2018-05-02 09:00 | BH.SGPN.GN ---
Behaviors/Verbalizations/Mental Status: [] Eye contact is good. Motor activity is appropriate. Appearance is casual. Speech is Appropriate. Mood is anxious. Affect is congruent. Thoughts are linear and logical. No evidence of psychosis. Reviewed daily check in sheet and no reports of suicidal ideations or intent. Client Response/Progress/Benefit: [] Pt was an active participant in group discussion. Emotion for today is good but anxious about tomorrow. Shared with the group significant progress in regards to depression and anxiety this week. Shared that she is feeling more stable however is extremely anxious about a stressor tomorrow. Shared how she has struggled with this work related stressor and does not feel that she is supported. Discussed fear that anxiety will return and lead to difficulty getting to work. She discussed at length the negative thoughts that she encounters that make this stressor overwhelming. Group provided feedback and offered some suggestions to combat negative thoughts. Progress noted per pt report. Will remain in IOP to prevent decompensation, stabilize mood, and aid in transition back to work. Narrative Note: []
--- NOTE | 2018-05-02 10:05 | BH.SGPN.GN ---
Behaviors/Verbalizations/Mental Status: []Client alert and oriented, casual dress, hygiene good. Eye contact good. Motor activity appropriate. Speech within normal limits. Affect full-smiling and laughing, mood euthymic. Thoughts linear, logical, no signs of hallucinations or delusions. Client Response/Progress/Benefit: []Client responded well to session, active participant. Client provided to the discussion of how positive and negative forces in a person?s life can impact mental health. Client connected to the garden metaphor regarding positive and negative forces in life. Client stated negative forces can be rigid boundaries and unexpected life changes. Client reported positive forces are ?things that counteract the negative? such as positive affirmations and pets. Client engaged in the activity and provided ideas and encouragement. Client stated it is important for to find balance when dealing with positive and negative forces in life. Client appeared to benefit from gaining insight to how the positive and negative forces in a person?s life impact mental health. Client to continue IOP to prevent decompensation and increase mood stability.
--- NOTE | 2018-05-02 11:15 | BH.SGPN.GN ---
Behaviors/Verbalizations/Mental Status: [] Pt eye contact good, casually dressed, motor activity appropriate, speech normal rate and tone, mood anxious, congruent affect, thoughts linear and intact, no evidence of delusions or hallucinations. Client Response/Progress/Benefit: []Pt listened attentively to others, engaged during small group discussion, and shared thoughts and feelings. Pt reported personal positive forces to include:self-awareness, finding the root of her issues, opening up more to close friends/family, medications, making overwhelming things more manageable. Pt shared personal negative forces to include: self-awareness and self-doubt, fear of negative opinions from others, toxic people, unhealthy coping skills, and lack of boundaries. Pt identified she will work on decreasing self-doubt and negativity by reinforcing positive by using positive affirmations. Pt seemed to benefit from increased awareness of her positive and negative forces as well as identifying a strategy to help decrease impact of negative forces. Pt to continue IOP level of care to stabilize moods, increase self-esteem, and prevent decompensation. Narrative Note: []
--- NOTE | 2018-05-05 09:04 | BH.SGPN.GN ---
Behaviors/Verbalizations/Mental Status: [Eye contact is good. Motor activity appropriate -some fidgeting as client discussed current frustrations. Appearance casual wearing a sweatshirt. Speech Appropriate rate and tone. Mood agitated, depressed. Affect is congruent. Thoughts linear, logical, intact. No evidence of delusions or hallucinations. Reviewed daily check in sheet and no reports of suicidal ideations or intent] Client Response/Progress/Benefit: [Client receptive of session, providing input throughout and supportive feedback to peers. She indicated current mood as ?disconnected? and went on to share ongoing feelings of numbness or not being present in her own life. Client discussed that she has been struggling with this since receiving her cancer diagnosis. She did well to identify that she has not been processing her emotions but notes not knowing how to communicate with her her needs or reflect for herself. She shared an example of struggling to know what she needed when feeling dysregulated following returning to work this weekend and ended up crying in her car. Client shared not knowing if she needs space or to be comforted. Client benefitted from support provided by the group and displayed progress in her ability to identify a need for improved awareness of current stressors and what has helped her to cope in the past as well as openly communicating her concerns with her . Client recommended continued IOP tx to improve ability to communicate needs with her supports, challenge distorted thought patterns, and prevent decompensation.] Narrative Note: []
--- NOTE | 2018-05-05 11:30 | BH.SGPN.GN ---
Behaviors/Verbalizations/Mental Status: [] Eye contact is good. Motor activity is appropriate. Appearance is casual. Speech is Appropriate. Mood is depressed. Affect is flat. Thoughts are linear and logical. No evidence of psychosis. Tearful at times Client Response/Progress/Benefit: [] Pt was an active participant in group discussion and activity. Pt was able to identify several obstacles to improving mental wellness. Group identified several obstacles. Pt specifically reports self-doubt, feeling like she is a burden, and focusing to much on other's opinions as obstacles that hinder her progress. Group worked together to identify some strategies to overcome certain obstacles which includes; developing small realistic goals, journaling, decreasing isolation, becoming active in online groups, constantly re-evaluating mood, progress, and goals, exploring options to improve mental health and emotional well-being, positive affirmations, and being honest with self and others. Benefited from group by identifying obstacles to wellness as well as some strategies to overcome obstacles. Will continue in IOP to prevent decompensation, maintain safety, and decrease depression. Narrative Note: []
--- NOTE | 2018-05-05 13:07 | BH.MDN_ITS ---
Multi-Disciplinary Note - Note 60-min Individual Time Started:: 13:30 Date: 05/01/18 Purpose of session/treatment goals addressed:: Purpose of session was to assess pt's current symptoms and stressors. Other topics included: gathering background information, goal setting, and psychoedcuation. Eye Contact:: Fair Motor Activity:: Restless Appearance:: Casual Speech:: Appropriate Mood:: Depressed Affect:: Congruent Thoughts:: Linear, Logical, No evidence of hallucinations/delusions noted Staff Interventions:: Therapist used open ended questions to elicit pt's current symptoms and stressors. Therapist used probing questions to gather additional background information. Therapist reviewed pt's goals for treatment. Therapist provided pyschoeducation about connection between thoughts, feelings, and behavior. Therapist provided homework for pt to complete thought log. Client Response:: Pt reported she is happy to be done with her cancer treatment and now just waits to find out if the treatment worked. Pt shared she has sought help because she hasn't really addressed her thoughts or emotions about having cancer. Pt reported she doesn't talk about her emotions, which pt shared she is starting to recognize keeping her emotions in is not helping her feel better. Pt shared her ability to function at work and complete daily tasks at home started to suffer over the past month which was the driving force that pushed pt to get help. Pt reported she would like to work on decrease her negative self-talk. Pt shared majority of her negative self-talk is in regards to how she is not a good enough mother. Pt shared she also wants to work on setting boundaries because she often takes on too many things which results in her feeling overwhelmed and increases anxiety. Pt reported she could benefit from focusing on self-care b ecause it's an area she doesn't put much time or effort into. Pt connected with the cognitive triangle, recognizing her negative thoughts impact her emotions and behavior. Pt agreeable to complete thought log to help pt increase awareness of her unhelpful thought patterns. Risks/Concerns:: Pt denies suicidal ideation, plan or intention to date. Progress Toward Goals/Plan:: Pt progress limited given pt has only attended IOP 3 times due to taking off a week of IOP to complete her cancer treatment. Pt verbalizes motivation to get better. Pt to continue IOP level of care to decrease depression, increase healthy coping skills, and prevent decompensation. Time Stopped:: 14:30
--- OUTSIDE RECORDS SUMMARY | 2018-06-01 09:59 | XMS RPT_ITS ---
:1990 Author Organization [place] Support Name Relationship Address Phone ERICH WELCH/COLLETTE Unavailable [address] + [place] [address] JATINDER BARNES JR Unavailable [address] + [place] [address] WC Unavailable [address] + [place] [address] YURI, ERICH/COLLETTE Unavailable [address] + [place] [address] JATINDER BARNES JR Unavailable [address] + [place] [address] [facility] Unavailable [address] + [place] [address] YURI, ERICH/COLLETTE Unavailable [address] + [place] [address] JATINDER BARNES JR Unavailable [address] + [place] [address] [facility] Unavailable [address] + [place] [address] YURI, ERICH/COLLETTE Unavailable [address] + [place] [address] JATINDER BARNES JR Unavailable [address] + [place] [address] [facility] Unavailable [address] + [place] [address] YURI, ERICH/COLLETTE Unavailable [address] + [place] [address] MOLLY JR, JATINDER Unavailable [address] + [place] [address] [facility] Unavailable [address] + [place] [address] DRAVENSTOTT, ERICH/COLLETTE Unavailable [address] + [place] [address] MOLLY BLANK, JATINDER Unavailable [address] + [place] [address] [facility] Unavailable [address] + [place] [address] DRAVENSTOTT, ERICH/COLLETTE Unavailable [address] + [place] [address] MOLLY BLANK JATINDER Unavailable [address] + [place] [address] [facility] Unavailable [address] + [place] [address] DRAVENSTOTT, ERICH/COLLETTE Unavailable [address] + [place] [address] MOLLY BLANK, JATINDER Unavailable [address] + [place] [address] [facility] Unavailable [address] + [place] [address] DRAVENSTOTT, ERICH/COLLETTE Unavailable [address] + [place] [address] RONNIE BARNES JRITH Unavailable [address] + [place] [address] [facility] Unavailable [address] + [place] [address] DRAVENSTOKYLE, ERICH/COLLETTE Unavailable [address] + [place] [address] RONNIE BARNES JRITH Unavailable [address] + [place] [address] [facility] Unavailable [address] + [place] [address] DRAVENSTOTT, ERICH/COLLETTE Unavailable [address] + [place] [address] MOLLY JR, JATINDER Unavailable [address] + [place] [address] [facility] Unavailable [address] + [place] [address] DRAVENSTOTT, ERICH/COLLETTE Unavailable [address] + [place] [address] MOLLY JR, JATINDER Unavailable [address] + [place] [address] [facility] Unavailable [address] + [place] [address] DRAVENSTOTT, ERICH/COLLETTE Unavailable [address] + [place] [address] MOLLY JR, JATINDER Unavailable [address] + [place] [address] [facility] Unavailable [address] + [place] [address] DRAVENSTOTT, ERICH/COLLETTE Unavailable [address] + [place] [address] MOLLY JR, JATINDER Unavailable [address] + [place] [address] [facility] Unavailable [address] + [place] [address] DRAVENSTOTT, ERICH/COLLETTE Unavailable [address] + [place] [address] MOLLY JR, JATINDER Unavailable [address] + [place] [address] [facility] Unavailable [address] + [place] [address] DRAVENSTOTT, ERICH/COLLETTE Unavailable [address] + [place] [address] MOLYL JR, JATINDER Unavailable [address] + [place] [address] [facility] Unavailable [address] + [place] [address] DRAVENSTOTT, ERICH/COLLETTE Unavailable [address] + [place] [address] MOLLY JR, JATINDER Unavailable [address] + [place] [address] [facility] Unavailable [address] + [place] [address] DRAVENSTOTT, ERICH/COLLETTE Unavailable [address] + [place] [address] MOLLY JR, JATINDER Unavailable [address] + [place] [address] [facility] Unavailable [address] + [place] [address] DRAVENSTOTT, ERICH/COLLETTE Unavailable [address] + [place] [address] MOLLY JR, JATINDER Unavailable [address] + [place] [address] [facility] Unavailable [address] + [place] [address] DRAVENSTOTT, ERICH/COLLETTE Unavailable [address] + [place] [address] MOLLY JR, JATINDER Unavailable [address] + [place] [address] [facility] Unavailable [address] + [place] [address] DRAVENSTOTT, ERICH/COLLETTE Unavailable [address] + [place] [address] MOLLY JR, JATINDER Unavailable [address] + [place] [address] [facility] Unavailable [address] + [place] [address] DRAVENSTOTT, ERICH/COLLETTE Unavailable [address] + [place] [address] MOLLY JR, JATINDER Unavailable [address] + [place] [address] [facility] Unavailable [address] + [place] [address] DRAVENSTOTT, ERICH/COLLETTE Unavailable [address] + [place] [address] MOLLY JR, JATINDER Unavailable [address] + [place] [address] [facility] Unavailable [address] + [place] [address] DRAVENSTOTT, ERICH/COLLETTE Unavailable [address] + [place] [address] MOLLY JR, JATINDER Unavailable [address] + [place] [address] [facility] Unavailable [address] + [place] [address] DRAVENSTOTT, ERICH/COLLETTE Unavailable [address] [phone] [place] [address] MOLLY JR, JATINDER Unavailable [address] + [place] [address] [facility] Unavailable [address] + [place] [address] DRAVENSTOTT, ERICH/COLLETTE Unavailable [address] [phone] [place] [address] MOLLY JR, JATINDER Unavailable [address] + [place] [address] [facility] Unavailable [address] + [place] [address] DRAVENSTOTT, ERICH/COLLETTE Unavailable [address] [phone] [place] [address] MOLLY JR, JATINDER Unavailable [address] + [place] [address] [facility] Unavailable [address] + [place] [address] Care Team Providers Name Role Phone Gail Bautista Referring Unavailable Ty Wong Primary Care Unavailable ZULEYKA JUÁREZ Attending Unavailable Donavon REGALADO, Piper Consulting Unavailable LALITA GARCIA Attending Unavailable LALITA GARCIA Referring Unavailable Ty Wong Primary Care Unavailable Ty Wong Primary Care Unavailable Michael Celis Attending Unavailable Wong, Ty Primary Care Unavailable Aquilino Flores Attending Unavailable Wong, Ty Attending Unavailable Wong, Ty Primary Care Unavailable Wong, Ty Attending Unavailable Wong, Ty Referring Unavailable Wong, Ty Primary Care Unavailable Cebul, Inder Attending Unavailable Wong, Ty Referring Unavailable Wong, Ty Primary Care Unavailable Wong, Ty Attending Unavailable Wong, Ty Referring Unavailable Wong, Ty Primary Care Unavailable Cebul, Inder Attending Unavailable Wong, Ty Referring Unavailable Wong, Ty Primary Care Unavailable Cebul, Inder Attending Unavailable Wong, Ty Primary Care Unavailable Cebul, Inder Referring Unavailable Cebul, Inder Attending Unavailable Cebul, Inder Referring Unavailable Wong, Ty Primary Care Unavailable Cebul, Inder Admitting Unavailable Cebul, Inder Attending Unavailable Wong, Ty Referring Unavailable Wong, Ty Primary Care Unavailable Raphael PA-C, Piper Attending Unavailable Wong, Ty Referring Unavailable Wong, Ty Primary Care Unavailable Raphael PA-C, Piper Attending Unavailable Wong, Ty Primary Care Unavailable Cebul, Inder Attending Unavailable Wong, Ty Referring Unavailable Wong, Ty Primary Care Unavailable Cebul, Inder Attending Unavailable Cebul, Inder Referring Unavailable Wong, Ty Primary Care Unavailable Raphael PA-C, Piper Attending Unavailable Wong, Ty Referring Unavailable Wong, Ty Primary Care Unavailable Raphael PA-C, Piper Attending Unavailable Wong, Ty Referring Unavailable Wong, Ty Primary Care Unavailable Cebul, Inder Attending Unavailable ASSESSMENT, HEALTH RISK Attending Unavailable ASSESSMENT, HEALTH RISK Referring Unavailable Wong, Ty Primary Care Unavailable Raghunathan, Gail N. Attending Unavailable Raghunathan, Gail N. Referring Unavailable Wong, Ty Primary Care Unavailable Raghunathan, Gail N. Attending Unavailable Raghunathan, Gail N. Referring Unavailable Wong, Ty Primary Care Unavailable Raghunathan, Gail N. Attending Unavailable Wong, Ty Primary Care Unavailable Raghunathan, Gail N. 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 / E04.2(ICD-10) Hospital Repository 03/11/2018 Unknown C73 - Malignant Donavon REGALADO, Active [place] neoplasm of thyroid [facility] gland / C73(ICD-10) Hospital Repository 01/14/2018 Unknown T81.30XA - Donavon REGALADO, Active [place] Disruption of wound, [facility] unspecified, initial Hospital encounter / Repository T81.30XA(ICD-10) 12/31/2017 Unknown E83.51 - CebuInder vu Active [place] Hypocalcemia / Community E83.51(ICD-10) Hospital Repository 12/19/2017 Unknown G89.18 - Other acute CebuInder vu Active [place] postprocedural pain Community / G89.18(ICD-10) Hospital Repository 11/07/2017 Unknown E04.1 - Nontoxic Ty Wong Active [place] [facility] nodule / Hospital E04.1(ICD-10) Repository 10/04/2017 Unknown E07.9 - Disorder of Ty Wong Active [place] thyroid, unspecified Community / E07.9(ICD-10) Hospital Repository 10/02/2017 Unknown Z02.89 - Encounter Ty Wong Active [place] [facility] other [facility] administrative Hospital examinations / Repository Z02.89(ICD-10) PROCEDURES PROCEDURES No Procedure Records FoundRESULTS RESULTS THERAPY I-131 Observed: 04/23/2018 Status: F Source: [place] 11:51 [facility] REPOSITORY [facility] Imaging Services [address] [place] [address] Therapy I-131 MR#: [id number] Acct: [id number] Name: KENDRA BARNES Rep #: [id number] : 1990 F 27 From: Jhonatan Peterson DO PCP: Ty Wong MD Status: REG CLI Study: Therapy I-131 Date of Exam: 04/23/18 Exam# [id number] Ordering Dr: Emi Romero,Out o. CLINICAL: 27-year-old female presenting for I-131 ablative therapy for known thyroid carcinoma. I-131 RADIOIODINE THERAPY NARRATIVE: The proper identification of the patient and verification of the I-131 dose was accomplished prior to I-131 provision. The patient was administered 165 mCi of I-131 per os. Prior to dosing, all risks, benefits and potential complications were explained in detail. Accordingly, an informed consent was obtained. The patient tolerated the ingestion without incident. Post therapeutic precautions and instructions were provided and understood. The patient will be followed as an outpatient by Dr. Bautista. Electronically Signed: Jhonatan Nicholas, at 23:13 EST Tel , Service support , NM/Therapy I-131 CC: Gail Bautista MD; Ty Wong MD; OUT OF TOWN DOCTOR [employer]: Signed CBC W/DIFF, AUTOMATED Collected: 04/23/2018 Status: F Source: [place] 11:39 AM [facility] REPOSITORY TYPE CODE TESTS RESULT OUT OF RANGE REFERENCE UNITS LAB L100.1000 4.4-11.0 K/mm3 Normal WBC 7.2 LAB L100.1200 4.2-5.4 M/mm3 Normal RBC 4.87 LAB L100.1300 12.0-15.0 g/dl Normal HGB 14.7 LAB L100.1400 37-47 % Normal HCT 43.9 LAB L100.1500 81-99 fL Normal MCV 90.1 LAB L100.1600 27.0-32.0 pg Normal MCH 30.2 LAB L100.1700 32-36 g/gl Normal MCHC 33.5 LAB L100.1810 11.6-14.6 % Normal RDW CV 12.9 LAB L100.1820 35.1-43.9 fl Normal RDW SD 42.2 LAB L100.1900 150-450 K/mm3 Normal PLT 243 LAB L100.2000 6.2-12.0 fl Normal MPV 10.7 LAB L100.2100 47-70 % Normal NEUT% 62.5 LAB L100.2200 19-41 % Normal LY% 31.9 LAB L100.2300 0-10 % Normal MONO% 5.0 LAB L100.2400 0-5 % Normal EO% 0.1 LAB L100.2500 0-1 % Normal BASO% 0.4 LAB L100.2550 0.0-0.9 % Normal IM GRAN % 0.100 Result Comment: IG% - Immature Granulocytes (promyelocytes, myelocytes and metamyelocytes) > 1% indicates that a LEFT SHIFT is Present. LAB L100.2620 2.0-7.7 X10 3/uL Normal Absolute Neut 4.5 LAB L100.2720 0.83-4.51 X10 3/ul Normal Absolute Lymph 2.29 Performed By: #### L100.0100 #### [facility] [address] [place], [address] PTHIN Collected: 04/23/2018 Status: F Source: [place] 11:39 AM [facility] REPOSITORY TYPE CODE TESTS RESULT OUT OF RANGE REFERENCE UNITS LAB L509.1000 18.4-80.1 pg/mL Normal PTHIN 43.9 Performed By: #### L509.1000 #### [facility] [address] [place], [address] COMPREHENSIVE METABOLIC Collected: 04/23/2018 Status: F Source: [facility] 11:39 AM [facility] REPOSITORY TYPE CODE TESTS RESULT OUT OF RANGE REFERENCE UNITS LAB L501.0100 74-106 mg/dL Normal GLU 78 Result Comment: Please note revised GLUCOSE reference range effective 2017. LAB L501.1000 7-18 mg/dL Normal BUN 8 LAB L501.1100 0.55-1.02 mg/dL High CREAT,SERUM 1.39 Result Comment: The validity of the calculated GFR AND GFRAA in patients over 70 years has not been determined. Clinical correlation is essential. LAB L501.1110 >60 mL/min Low EST GFR 48 Result Comment: Non- GFR Calc LAB L501.1115 >60 mL/min Low EST GFR - AA 58 Result Comment: GFR Calc LAB L501.1300 10-20 RATIO Low BUN/CRE 5.8 LAB L501.1500 6.4-8.2 g/dL Normal T PROT 7.8 LAB L501.1800 3.2-5.0 g/dL Normal ALB 4.2 LAB L501.1950 2.2-4.2 g/dL Normal GLOB 3.6 LAB L501.2000 0.9-2.4 RATIO Normal A/G 1.2 LAB L501.2200 8.5-10.1 mg/dL Normal CA 9.2 LAB L501.4100 15-37 U/L Normal AST 32 LAB L501.4305 45-117 U/L Normal ALK P 87 LAB L501.4405 13-56 U/L Normal ALT 41 LAB L501.4600 0.20-1.00 mg/dL Normal T BILI 0.20 LAB L501.5300 136-145 mmol/L Normal NA 141 LAB L501.5600 3.5-5.1 mmol/L Normal K 3.9 LAB L501.5900 98-107 mmol/L Normal CL 103 LAB L501.6100 21.0-32.0 mmol/L Normal CO2 29.0 LAB L501.6200 5-15 Normal GAP 9 Performed By: #### L500.4050, L501.5200, L501.63936, L501.9520, L506.0400 #### [facility] [address] [place], [place], [address] MAGNESIUM Collected: 04/23/2018 Status: F Source: [place] 11:39 AM [facility] REPOSITORY TYPE CODE TESTS RESULT OUT OF RANGE REFERENCE UNITS LAB L501.5200 1.6-2.6 mg/dL Normal MG 2.1 Performed By: #### L500.4050, L501.5200, L501.61044, L501.9520, L506.0400 #### [facility] [address] [place], [place], [address] FREE T3 Collected: 04/23/2018 Status: F Source: [place] 11:39 AM [facility] REPOSITORY TYPE CODE TESTS RESULT OUT OF RANGE REFERENCE UNITS LAB L501.09773 2.18-3.98 pg/mL Low FREE T3 < 0.5 Performed By: #### L500.4050, L501.5200, L501.02543, L501.9520, L506.0400 #### [facility] [address] [place], [address] THYROID STIM HORMONE Collected: 04/23/2018 Status: F Source: [place] ([facility]) 11:39 AM [facility] REPOSITORY TYPE CODE TESTS RESULT OUT OF RANGE REFERENCE UNITS LAB L501.9520 0.358-3.74 uIU/mL High TSH 110.00 Performed By: #### L500.4050, L501.5200, L501.33922, L501.9520, L506.0400 #### [facility] [address] [place], [place], [address] T4 FREE DIRECT Collected: 04/23/2018 Status: F Source: [place] 11:39 AM [facility] REPOSITORY TYPE CODE TESTS RESULT OUT OF REFERENCE UNITS RANGE LAB L506.0400 0.76-1.46 ng/dL Low T4 FREE 0.16 DIRECT Performed By: #### L500.4050, L501.5200, L501.55037, L501.9520, L506.0400 #### [facility] [address] [place], [place], [address] CALCIUM IONIZED Collected: 04/23/2018 Status: F Source: [place] 11:39 AM [facility] REPOSITORY TYPE CODE TESTS RESULT OUT OF RANGE REFERENCE UNITS LAB L3100.9600 4.5-5.6 mg/dL Normal IONIZED CA 5.4 Performed By: #### L3100.9600, L3300.6820, L3300.6900 #### [facility] (refer to report for specific site) refer to report for address and phone number THYROGLOBULIN W/ANTI-TG Collected: 04/23/2018 Status: F Source: [place] AB 11:39 AM [facility] REPOSITORY TYPE CODE TESTS RESULT OUT OF RANGE REFERENCE UNITS LAB L3300.7025 0.0-0.9 IU/mL Normal ANTI-TG < 1.0 AB Result Comment: Thyroglobulin Antibody measured by [facility] LAB L3400.1030 1.5-38.5 ng/mL Normal THYROGLOB 1.6 Result Comment: According to the National Academy of Clinical Biochemistry, the reference interval for Thyroglobulin (TG) should be related to euthyroid patients and not for patients who underwent thyroidectomy. TG reference intervals for these patients depend on the residual mass of the thyroid tissue left after surgery. Establishing a post-operative baseline is recommended. The assay limit of quantitation is 0.1 ng/mL Thyroglobulin measured by [facility] Performed By: #### L3100.9600, L3300.6820, L3300.6900 #### [facility] (refer to report for specific site) refer to report for address and phone number THYROID PEROXIDASE AB Collected: 04/23/2018 Status: F Source: [place] 11:39 AM [facility] REPOSITORY TYPE CODE TESTS RESULT OUT OF RANGE REFERENCE UNITS LAB L3300.6900 0-34 IU/mL Normal TPO AB 12 6676 Result Comment: Performed at: [facility] [id number] Activity Leader: Wicho Hernandez PhD, Phone: [phone] Performed By: #### L3100.9600, L3300.6820, L3300.6900 #### [facility] (refer to report for specific site) refer to report for address and phone number SURGERY VISIT REPORT Observed: 03/13/2018 Status: F Source: [place] 8:38 AM [facility] REPOSITORY [facility] [address] [place] [address] [address] [place] [address] OFFICE VISIT Date of Service: 03/12/18 MR#: [id number] Acct: [id number] Name: KENDRA BARNES Rep #: [id number] : 1990 Provider: Piper Raphael PA-C Age/Sex: 27/F Location: [facility] Status: Signed Intake Intake Visit Reasons: Incision Concerns Chief Complaint: s/p total thyroid Monitoring And Evaluation Advisor Required: No Is patient in pain?: No Allergies Penicillins Allergy (Verified 03/12/18 13:27) Hives hydroxyzine [From Vistaril] Adverse Reaction (Verified 03/12/18 13:27) makes me angry Medications buPROPion SR [Wellbutrin SR (150mg tablets)] 150 mg PO BID 12/16/15 [History Confirmed 03/12/18] Lamotrigine [Lamictal Xr] 100 mg PO BID 03/25/16 [History Confirmed 03/12/18] Valacyclovir HCl [Valacyclovir] 500 mg PO DAILY 09/22/16 [History Confirmed 03/12/18] traZODone [Desyrel] 50 mg PO QHS PRN PRN 05/20/17 [History Confirmed 03/12/18] Amitriptyline HCl 25 mg PO QHS 05/22/17 [History Confirmed 03/12/18] Hydrocodone Bitart/Apap 5-325 [Leeds 5MG-325MG] 1 tab PO Q6H PRN PRN 2 Days #8 tab 12/18/17 [Rx Confirmed 03/12/18] Levothyroxine [Synthroid] 150 mcg PO DAILY #90 tab 12/18/17 [Rx Confirmed 03/12/18] Calcitriol [Rocaltrol] 0.25 mcg PO BID #28 cap 12/19/17 [Rx Confirmed 03/12/18] Calcium Citrate 200 mg PO TID #42 tab 12/19/17 [Rx Confirmed 03/12/18] Cholecalciferol (VIT D3) [Vitamin D3] 2,000 unit PO BID #56 tab 12/19/17 [Rx Confirmed 03/12/18] Subjective Details: KENDRA BARNES, is a 27 F I am following s/p total thyroidectomy. Patient called into the office noting two areas of pimple-like structures which have popped up. She denies pain or discomfort. She denies drainage noted. Patient returns for a follow-up visit today. She notes for the last several days she has been experiencing tingling and numbness intermittently around the incision. She notes she has continued to take her calcium supplements. She has been rescheduled for the iodine treatment for April. Patient was off of her thyroid medication for 1 month in preparation for iodine treatment. Her most recent TSH was 50. She is under the care of Dr. Fierro. Objective Details: Anterior neck- Incision c/d/i. No erythema or infection noted. Tingling to light palpation. No hematoma noted. Assessment AND Plan Problems 1. Papillary thyroid carcinoma C73 Plan - Recheck calcium level - Follow-up as needed Orders Orders: Coding Level of Care Code Global Post Op Diagnoses Papillary thyroid carcinoma C73 03/13/18 0838 <Electronically signed by Piper Raphael PA-C> Date Piper Raphael PA-C Cosigner Signature: Date (if applicable) CC: THYROID WHOLE BODY Observed: 02/26/2018 Status: F Source: [place] I-131 SCAN 8:33 AM [facility] REPOSITORY [facility] Imaging Services [address] [place] [address] Thyroid Whole Body I-131 Scan MR#: [id number] Acct: [id number] Name: KENDRA BARNES Rep #: [id number] : 1990 F 27 From: Jhonatan Petreson DO PCP: Ty Wong MD Status: REG CLI Study: Thyroid Whole Body I-131 Scan Date of Exam: 02/26/18 Exam# [id number] Ordering Dr: Gail Bautista MD CLINICAL: 27-year-old female with history of thyroid carcinoma presenting for diagnostic I-131 whole body scintigraphy status post thyroidectomy. I-131 WHOLE BODY SCINTIGRAPHY COMPARISON: None available FINDINGS: Following the oral administration of 4.28 mCi of I-131, whole body images obtained at 48 hours post radiopharmaceutical administration reveal: 1. Prominent radiopharmaceutical concentration is identified in the anterior midline neck-thyroid bed. 2. Normal physiologic distribution of the radiopharmaceutical is identified in the facilitated uptake is noted within the stomach, intestinal tract, the urinary bladder. NM/Thyroid Whole Body I-131 Scan IMPRESSION: 1. The increase in radiopharmaceutical concentration identified in the anterior midline neck-thyroid bed is most consistent with visualization of a postoperative thyroid remnant. 2. There is no definitive scintigraphic evidence of iodine avid distant metastatic disease. Electronically Signed: Jhonatan Peterson DO at 23:12 EDT Tel , Service support , CC: Gail Bautista MD; Ty Wong MD [employer]: Signed FREE T3 Collected: 02/24/2018 Status: F Source: [place] 2:40 PM [facility] REPOSITORY TYPE CODE TESTS RESULT OUT OF RANGE REFERENCE UNITS LAB L501.98916 2.18-3.98 pg/mL Low FREE T3 < 0.5 Performed By: #### L501.85164, L501.9520, L506.0400 #### [facility] [address] [facility] [place], [place], [address] THYROID STIM HORMONE Collected: 02/24/2018 Status: F Source: [place] ([facility]) 2:40 PM [facility] REPOSITORY TYPE CODE TESTS RESULT OUT OF RANGE REFERENCE UNITS LAB L501.9520 0.358-3.74 uIU/mL High TSH 50.40 Performed By: #### L501.88250, L501.9520, L506.0400 #### [facility] [place], [address] T4 FREE DIRECT Collected: 02/24/2018 Status: F Source: [place] 2:40 PM [facility] REPOSITORY TYPE CODE TESTS RESULT OUT OF REFERENCE UNITS RANGE LAB L506.0400 0.76-1.46 ng/dL Low T4 FREE 0.14 DIRECT Performed By: #### L501.50189, L501.9520, L506.0400 #### [facility] [address] [place] [address], [id number] CBC, EMPLOYEE Collected: 01/31/2018 Status: F Source: [place] 4:05 PM [facility] REPOSITORY TYPE CODE TESTS RESULT OUT OF RANGE REFERENCE UNITS LAB L100.1000 4.4-11.0 K/mm3 Normal WBC 8.8 LAB L100.1200 4.2-5.4 M/mm3 Normal RBC 4.73 LAB L100.1300 12.0-15.0 g/dl Normal HGB 14.8 LAB L100.1400 37-47 % Normal HCT 42.1 LAB L100.1500 81-99 fL Normal MCV 89.0 LAB L100.1600 27.0-32.0 pg Normal MCH 31.3 LAB L100.1700 32-36 g/gl Normal MCHC 35.2 LAB L100.1810 11.6-14.6 % Normal RDW CV 12.3 LAB L100.1820 35.1-43.9 fl Normal RDW SD 40.1 LAB L100.1900 150-450 K/mm3 Normal PLT 331 LAB L100.2000 6.2-12.0 fl Normal MPV 10.2 LAB L100.2110 47-70 % Normal NEUT% 60.3 LAB L100.2210 19-41 % Normal LY% 30.9 LAB L100.2310 0-10 % Normal MONO% 7.6 LAB L100.2410 0-5 % Normal EO% 0.8 LAB L100.2510 0-1 % Normal BASO% 0.2 LAB L100.2620 2.0-7.7 X10 3/uL Normal Absolute Neut 5.3 LAB L100.2720 0.83-4.51 X10 3/ul Normal Absolute Lymph 2.71 Performed By: #### L100.0200 #### [facility] [address] [place], [address] EMPLOYEE PROFILE Collected: 01/31/2018 Status: F Source: [place] 4:05 PM [facility] REPOSITORY TYPE CODE TESTS RESULT OUT OF RANGE REFERENCE UNITS LAB L501.0100 74-106 mg/dL Normal GLU 99 Result Comment: Please note revised GLUCOSE reference range effective 2017. LAB L501.1000 7-18 mg/dL Normal BUN 14 LAB L501.1100 0.55-1.02 mg/dL High CREAT,SERUM 1.07 Result Comment: The validity of the calculated GFR AND GFRAA in patients over 70 years has not been determined. Clinical correlation is essential. LAB L501.1110 >60 mL/min Normal EST GFR 65 Result Comment: Non- GFR Calc LAB L501.1115 >60 mL/min Normal EST GFR - AA 79 Result Comment: GFR Calc LAB L501.1300 10-20 RATIO Normal BUN/CRE 13.1 LAB L501.1400 2.6-6.0 mg/dL High URIC 6.1 Result Comment: The drugs N-Acetylcysteine and Metamizole may falsely depress this assay. LAB L501.1500 6.4-8.2 g/dL High T PROT 8.3 LAB L501.1800 3.2-5.0 g/dL Normal ALB 4.5 LAB L501.1950 2.2-4.2 g/dL Normal GLOB 3.8 LAB L501.2000 0.9-2.4 RATIO Normal A/G 1.2 LAB L501.2200 8.5-10.1 mg/dL Normal CA 9.3 LAB L501.2300 2.5-4.9 mg/dL Normal PHOS 4.0 LAB L501.4100 15-37 U/L Normal AST 19 LAB L501.4305 45-117 U/L Normal ALK P 110 LAB L501.4405 13-56 U/L Normal ALT 32 LAB L501.4600 0.20-1.00 mg/dL Normal T BILI 0.50 LAB L501.4700 0.00-0.30 mg/dL Normal D BILI 0.11 LAB L501.4900 200 mg/dL High CHOL 204 Result Comment: <200 mg/dL Desirable 200-240 mg/dL Borderline >240 mg/dL High Risk LAB L501.5000 mg/dL Normal TRIG 123 Result Comment: The drugs N-Acetylcysteine and Metamizole may falsely depress this assay. Serum Triglycerides Reference Interval Normal <150 mg/dL Borderline high 150 - 199 mg/dL High 200 - 499 mg/dL Very High > or = 500 mg/dL LAB L501.5300 136-145 mmol/L Normal NA 137 LAB L501.5600 3.5-5.1 mmol/L Normal K 3.9 LAB L501.5900 98-107 mmol/L Normal CL 102 LAB L501.6100 21.0-32.0 mmol/L Normal CO2 28.0 LAB L501.6200 5-15 Normal 7 GAP LAB L501.6400 mg/dL Normal HDL 45 Result Comment: The drugs N-Acetylcysteine and Metamizole may falsely depress this assay. Reference Range HDL <40 mg/dL Low HDL Cholesterol HDL >or= 60 mg/dL High HDL Cholesterol LAB L501.6475 Normal CHOL:HDL 4.50 LAB L501.6500 0-130 mg/dL High LDL 134 LAB L501.6600 5-40 mg/dL Normal VLDL 25 LAB L504.2610 84-246 U/L Normal LDH 177 Performed By: #### L500.2900 #### [facility] [place], [address] NICOTINE URINE DRUG Collected: 01/31/2018 Status: F Source: [place] SCREEN 4:05 PM [facility] REPOSITORY TYPE CODE TESTS RESULT OUT OF RANGE REFERENCE UNITS LAB L505.6250 TO BE Normal CONFIRMED Result Comment: CONFIRMATORY TESTING FOR ALL POSITIVE URINE DRUG SCREEN RESULTS WILL ONLY BE SENT OUT UPON PHYSICIAN ORDER. The results of Urine Drug Screen methods provide only preliminary analytical test results. A more specific alternate chemical method must be used in order to obtain a confirmed analytical result. Gas chromatography/mass spectrometery (GC/MS) is the preferred confirmatory method. Clinical consideration and professional judgement should be applied to any drug of abuse test result, particularly when preliminary positive results are used. LAB L505.6270 <200 ng/mL Normal COT DRG Negative SCREEN Result Comment: Cotinine is the first-stage metabolite of Nicotine. Performed By: #### L505.6240 #### [facility] [address] [address] [place], [place], [address] URINALYSIS, EMPLOYEE Collected: 01/31/2018 Status: F Source: [place] 4:05 PM [facility] REPOSITORY TYPE CODE TESTS RESULT OUT OF RANGE REFERENCE UNITS LAB L400.3000 Yellow COLOR Normal Yellow LAB L400.3050 Clear Normal CLARITY Sl. Cloudy LAB L400.3200 Normal mg/dl Normal GLUCOSE, UR Normal LAB L400.3300 Negative mg/dL Normal BILIRUBIN URINE Negative LAB L400.3400 Negative mg/dl High 5 KETONE UR LAB L400.3465 1.002-1.030 Normal SP.GR. DIPSTX 1.020 LAB L400.3550 5.0 - 8.0 pH UR Normal 6.0 LAB L400.3600 Negative mg/dl High PROT 30 DIPSTX LAB L400.3700 Normal mg/dl Normal UROBILI Normal LAB L400.3750 Negative Normal NITRITE UR Negative LAB L400.3780 Negative /ul Normal OCCULT BLOOD-UR Negative LAB L400.3800 Negative /ul LEUK Normal ESTERASE Negative Performed By: #### L400.0100 #### [facility] [address] [place], [address] SURGERY VISIT REPORT Observed: 01/20/2018 Status: F Source: [place] 3:32 PM [facility] REPOSITORY [facility] [address] [place] [address] OFFICE VISIT Date of Service: 01/20/18 MR#: [id number] Acct: [id number] Name: KENDRA BARNES Rep #: [id number] : 1990 Provider: Piper Raphael PA-C Age/Sex: 27/F Location: [facility] [place] Status: Signed Intake Intake Visit Reasons: Incision Concerns Chief Complaint: s/p total thyroid Monitoring And Evaluation Advisor Required: No Is patient in pain?: No Allergies Penicillins Allergy (Verified 01/20/18 09:20) Hives hydroxyzine [From Vistaril] Adverse Reaction (Verified 01/20/18 09:20) makes me angry Medications buPROPion SR [Wellbutrin SR (150mg tablets)] 150 mg PO BID 12/16/15 [History Confirmed 01/20/18] Lamotrigine [Lamictal Xr] 100 mg PO BID 03/25/16 [History Confirmed 01/20/18] Valacyclovir HCl [Valacyclovir] 500 mg PO DAILY 09/22/16 [History Confirmed 01/20/18] traZODone [Desyrel] 50 mg PO QHS PRN PRN 09/22/16 [History Confirmed 01/20/18] Amitriptyline HCl 25 mg PO QHS 05/22/17 [History Confirmed 01/20/18] Hydrocodone Bitart/Apap 5-325 [Leeds 5MG-325MG] 1 tab PO Q6H PRN PRN 2 Days #8 tab 12/18/17 [Rx Confirmed 01/20/18] Levothyroxine [Synthroid] 150 mcg PO DAILY #90 tab 12/18/17 [Rx Confirmed 01/20/18] Calcitriol [Rocaltrol] 0.25 mcg PO BID #28 cap 12/19/17 [Rx Confirmed 01/20/18] Calcium Citrate 200 mg PO TID #42 tab 12/19/17 [Rx Confirmed 01/20/18] Cholecalciferol (VIT D3) [Vitamin D3] 2,000 unit PO BID #56 tab 12/19/17 [Rx Confirmed 01/20/18] sulfamethoxazole 800 mg-trimethoprim 160 mg tablet 1 tab PO BID 7 Days #14 tab 01/14/18 [Rx Confirmed 01/20/18] PFSH Medical History Papillary thyroid carcinoma (Acute) Multiple thyroid nodules (Acute) Anxiety (Acute) Depression (Acute) Insomnia (Acute) Thyroid cancer (Acute) Thyroid nodule (Acute) Surgical History S/P section (Acute) S/P hysterectomy (Acute) S/P surgical manipulation of ankle joint (Acute) S/P tonsillectomy and adenoidectomy (Acute) S/P total thyroidectomy (Acute 12/2017) Status post laparoscopy (Acute) Family History Mother CAD (coronary artery disease) Social History Smoking Status: Never smoker HPI HPI HPI: KENDRA BARNES, is a 27 F I am following s/p total thyroidectomy. Patient called into the office noting two areas of pimple-like structures which have popped up. She denies pain or discomfort. She denies drainage noted. Patient returns for a follow-up visit today. She notes much improvement. Exam Neck Other: Anterior neck incision- Healing very nicely. No infection noted. Pimple-like structures have resolved. No erythema noted. Assessment AND Plan Problems 1. Papillary thyroid carcinoma C73 Plan Complete Bactrim Follow-up as needed Coding Level of Care Code Global Post Op Diagnoses Papillary thyroid carcinoma C73 01/20/18 1532 <Electronically signed by Piper Raphael PA-C> Date Piper Raphael PA-C Cosigner Signature: Date (if applicable) CC: SURGERY VISIT REPORT Observed: 01/14/2018 Status: F Source: [place] 1:02 PM [facility] REPOSITORY [facility] [address] [place], [place] [address] OFFICE VISIT Date of Service: 01/14/18 MR#: [id number] Acct: [id number] Name: KENDRA BARNES Rep #: [id number] : 1990 Provider: Piper Raphael PA-C Age/Sex: 27/F Location[place] [facility] [place] Status: Signed Intake Intake Visit Reasons: Concerns with incision site Chief Complaint: s/p total thyroid Monitoring And Evaluation Advisor Required: No Is patient in pain?: No Allergies Penicillins Allergy (Verified 01/14/18 12:37) Hives hydroxyzine [From Vistaril] Adverse Reaction (Verified 01/14/18 12:37) makes me angry Medications buPROPion SR [Wellbutrin SR (150mg tablets)] 150 mg PO BID 12/16/15 [History Confirmed 01/14/18] Lamotrigine [Lamictal Xr] 100 mg PO BID 03/25/16 [History Confirmed 01/14/18] Valacyclovir HCl [Valacyclovir] 500 mg PO DAILY 09/22/16 [History Confirmed 01/14/18] traZODone [Desyrel] 50 mg PO QHS PRN PRN 09/22/16 [History Confirmed 01/14/18] Amitriptyline HCl 25 mg PO QHS 05/22/17 [History Confirmed 01/14/18] Hydrocodone Bitart/Apap 5-325 [Leeds 5MG-325MG] 1 tab PO Q6H PRN PRN 2 Days #8 tab 12/18/17 [Rx Confirmed 01/14/18] Levothyroxine [Synthroid] 150 mcg PO DAILY #90 tab 12/18/17 [Rx Confirmed 01/14/18] Calcitriol [Rocaltrol] 0.25 mcg PO BID #28 cap 12/19/17 [Rx Confirmed 01/14/18] Calcium Citrate 200 mg PO TID #42 tab 12/19/17 [Rx Confirmed 01/14/18] Cholecalciferol (VIT D3) [Vitamin D3] 2,000 unit PO BID #56 tab 12/19/17 [Rx Confirmed 01/14/18] sulfamethoxazole 800 mg-trimethoprim 160 mg tablet 1 tab PO BID 7 Days #14 tab 01/14/18 [Rx Confirmed 01/14/18] PFSH Medical History Papillary thyroid carcinoma (Acute) Multiple thyroid nodules (Acute) Anxiety (Acute) Depression (Acute) Insomnia (Acute) Thyroid cancer (Acute) Thyroid nodule (Acute) Surgical History S/P section (Acute) S/P hysterectomy (Acute) S/P surgical manipulation of ankle joint (Acute) S/P tonsillectomy and adenoidectomy (Acute) S/P total thyroidectomy (Acute 12/2017) Status post laparoscopy (Acute) Family History Mother CAD (coronary artery disease) Social History Smoking Status: Never smoker HPI HPI HPI: KENDRA BARNES, is a 27 F I am following s/p total thyroidectomy. Patient called into the office noting two areas of pimple-like structures which have popped up. She denies pain or discomfort. She denies drainage noted. Exam Skin Other: Anterior neck incision- intact. Two pimple-like structures likely spitting a suture. Slight erythema noted. Assessment AND Plan Problems 1. Papillary thyroid carcinoma C73 2. Spitting suture, initial encounter T81.30XA Plan - Recommended incision and drainage of the two areas. At this time, patient is declining due to fear of needles - Recommend Bactrim x 1 week. Warm compresses. Peroxide and antibacterial soap to the area. - Follow-up on Medications New: Coding Level of Care Code Global Post Op Diagnoses Papillary thyroid carcinoma C73 Spitting suture, initial encounter T81.30XA Encounter type: initial encounter 01/14/18 1302 <Electronically signed by Piper Raphael PA-C> Date Piper Raphael PA-C Cosigner Signature: Date (if applicable) CC: THYROID STIM HORMONE Collected: 01/02/2018 Status: F Source: [place] (TSH) 12:52 PM [facility] REPOSITORY TYPE CODE TESTS RESULT OUT OF RANGE REFERENCE UNITS LAB L501.9520 0.358-3.74 uIU/mL Normal TSH 2.10 Performed By: #### L501.9520 #### [facility] [address] [place], [address] CALCIUM,TOTAL Collected: 01/02/2018 Status: F Source: [place] 12:51 PM [facility] REPOSITORY TYPE CODE TESTS RESULT OUT OF RANGE REFERENCE UNITS LAB L501.2200 8.5-10.1 mg/dL Normal CA 9.1 Performed By: #### L501.2200 #### [facility] [address] [place], [address] SURGERY VISIT REPORT Observed: 12/30/2017 Status: F Source: [place] 4:45 PM [facility] REPOSITORY [facility] [address] [place] [address] OFFICE VISIT Date of Service: 12/30/17 MR#: [id number] Acct: [id number] Name: KENDRA BARNES Rep #: [id number] : 1990 Provider: Inder Manriquez MD Age/Sex: 27/F Location: [facility] Status: Signed Intake Intake Visit Reasons: total thyroid --results Chief Complaint: s/p total thyroid Monitoring And Evaluation Advisor Required: No Is patient in pain?: No Allergies Penicillins Allergy (Verified 12/30/17 16:20) Hives hydroxyzine [From Vistaril] Adverse Reaction (Verified 12/30/17 16:20) makes me angry Medications buPROPion SR [Wellbutrin SR (150mg tablets)] 150 mg PO BID 12/16/15 [History Confirmed 12/30/17] Lamotrigine [Lamictal Xr] 100 mg PO BID 03/25/16 [History Confirmed 12/30/17] Valacyclovir HCl [Valacyclovir] 500 mg PO DAILY 09/22/16 [History Confirmed 12/30/17] traZODone [Desyrel] 50 mg PO QHS PRN PRN 09/22/16 [History Confirmed 12/30/17] Amitriptyline HCl 25 mg PO QHS 05/22/17 [History Confirmed 12/30/17] Hydrocodone Bitart/Apap 5-325 [Leeds 5MG-325MG] 1 tab PO Q6H PRN PRN 2 Days #8 tab 12/18/17 [Rx Confirmed 12/30/17] Levothyroxine [Synthroid] 150 mcg PO DAILY #90 tab 12/18/17 [Rx Confirmed 12/30/17] Calcitriol [Rocaltrol] 0.25 mcg PO BID #28 cap 12/19/17 [Rx Confirmed 12/30/17] Calcium Citrate 200 mg PO TID #42 tab 12/19/17 [Rx Confirmed 12/30/17] Cholecalciferol (VIT D3) [Vitamin D3] 2,000 unit PO BID #56 tab 12/19/17 [Rx Confirmed 12/30/17] PFSH Medical History Multiple thyroid nodules (Acute) Anxiety (Acute) Depression (Acute) Insomnia (Acute) Thyroid cancer (Acute) Thyroid nodule (Acute) Surgical History S/P section (Acute) S/P hysterectomy (Acute) S/P surgical manipulation of ankle joint (Acute) S/P tonsillectomy and adenoidectomy (Acute) S/P total thyroidectomy (Acute 12/2017) Status post laparoscopy (Acute) Family History Mother CAD (coronary artery disease) Social History Smoking Status: Never smoker HPI HPI HPI: KENDRA BARNES, is a 27 F who presents to the office today for postoperative surgical follow-up. She is progressing well. Voice appears to be clear and strong. She is currently on vitamin D twice daily and Rocaltrol twice daily as well as twice daily calcium. He has no numbness or tingling. 5 days ago her calcium level was 9.1. She had a total thyroidectomy with sentinel node sampling 12/18/2017. A biopsy of the right superior neck soft tissue nodule was parathyroid tissue. That area remains in situ. Fibrofatty tissue and left inferior neck with possible lymph node was final result simply fibrofatty tissue. A central compartment lymph node sampling showed a small amount of parathyroid tissue with additionally 4 out of 4 lymph nodes negative. The thyroid itself demonstrates papillary thyroid cancer with one additional benign lymph node. The tumor is felt to be multifocal both the right lobe and the left lobe and extending into the is Wong. The right lobe dominant tumor measures 3 x 1.5 x 1.2 cm. The left lobe tumor 0.7 x 0.5 x 0.5 cm. Papillary carcinoma. Classical and follicular. Margins are clear. As noted a total 5 out of 5 lymph nodes are negative. PT2 No Mx She has no specific concerns today. She otherwise is feeling well. No numbness or tingling Exam Neck Other: Very nice clean healing incision Neuro Other: Chvostek negative Assessment AND Plan Problems 1. Papillary thyroid carcinoma C73 Plan I shared the patient's pathology with her today. She has had an opportunity to ask and have questions answered. We will decrease her Rocaltrol to once daily and we will decrease her vitamin D to once daily and she may continue the calcium twice daily. We will recheck a calcium level in 3 days. We will make appropriate referral to endocrinology. She has had an opportunity to ask and have questions answered. Inder Manriquez M.D., F.A.C.S. Orders Orders: Coding Level of Care Code Global Post Op Diagnoses Papillary thyroid carcinoma C73 12/30/17 1645 <Electronically signed by Inder Manriquez MD> Date Inder Manriquez MD Cosigner Signature: Date (if applicable) CC: Ty Wong MD SURGERY VISIT REPORT Observed: 12/25/2017 Status: F Source: [place] 4:09 PM [facility] REPOSITORY [facility] [address] [place] [address] OFFICE VISIT Date of Service: 12/25/17 MR#: [id number] Acct: [id number] Name: KENDRA BARNES #: [id number] : 1990 Provider: Piper Raphael PA-C Age/Sex: 27/F Location[place] [facility] Status: Signed Intake Intake Visit Reasons: Thyroid SX [facility] 12/18 Chief Complaint: s/p total thyroid Monitoring And Evaluation Advisor Required: No Is patient in pain?: No Allergies Penicillins Allergy (Verified 12/09/17 10:24) Hives hydroxyzine [From Vistaril] Adverse Reaction (Verified 12/09/17 10:24) makes me angry Medications buPROPion SR [Wellbutrin SR (150mg tablets)] 150 mg PO BID 12/16/15 [History Confirmed 12/25/17] Lamotrigine [Lamictal Xr] 100 mg PO BID 03/25/16 [History Confirmed 12/25/17] Valacyclovir HCl [Valacyclovir] 500 mg PO DAILY 09/22/16 [History Confirmed 12/25/17] traZODone [Desyrel] 50 mg PO QHS PRN PRN 09/22/16 [History Confirmed 12/25/17] Amitriptyline HCl 25 mg PO QHS 05/22/17 [History Confirmed 12/25/17] Hydrocodone Bitart/Apap 5-325 [Leeds 5MG-325MG] 1 tab PO Q6H PRN PRN 2 Days #8 tab 12/18/17 [Rx Confirmed 12/25/17] Levothyroxine [Synthroid] 150 mcg PO DAILY #90 tab 12/18/17 [Rx Confirmed 12/25/17] Calcitriol [Rocaltrol] 0.25 mcg PO BID #28 cap 12/19/17 [Rx Confirmed 12/25/17] Calcium Citrate 200 mg PO TID #42 tab 12/19/17 [Rx Confirmed 12/25/17] Cholecalciferol (VIT D3) [Vitamin D3] 2,000 unit PO BID #56 tab 12/19/17 [Rx Confirmed 12/25/17] Is last menstrual period known: No Post menopausal: No Patient : No PFSH Medical History Multiple thyroid nodules (Acute) Anxiety (Acute) Depression (Acute) Insomnia (Acute) Thyroid cancer (Acute) Thyroid nodule (Acute) Surgical History S/P section (Acute) S/P hysterectomy (Acute) S/P surgical manipulation of ankle joint (Acute) S/P tonsillectomy and adenoidectomy (Acute) S/P total thyroidectomy (Acute 12/2017) Status post laparoscopy (Acute) Family History Mother CAD (coronary artery disease) Social History Smoking Status: Never smoker HPI HPI HPI: KENDRA BARNES, is a 27 F I am following for atypical thyroid nodules. Dr. Manriquez performed a total thyroidectomy on 12/18/17. Patient tolerated the procedure well. Patient notes minimal change in voice. She denies nausea, vomiting, fever. She denies perioral numbness, extreme fatigue, numbness of finger tips. Pathology is pending. Exam Const General: cooperative, healthy appearing, comfortable, no acute distress Neck Other: Anterior neck incision- c/d/i. No erythema or infection noted. Minimal amount of swelling noted. Assessment AND Plan Problems 1. Multiple thyroid nodules E04.2 Plan - Recommend calcium level today. Our office will call with results - Continue calcium regimen for another 1 week - Will recheck TSH at 6 weeks - Follow-up with Dr. Manriquez for pathology results Orders Orders: Coding Level of Care Code Global Post Op Diagnoses Multiple thyroid nodules E04.2 12/25/17 1609 <Electronically signed by Piper Raphael PA-C> Date Piper Raphael PA-C Cosigner Signature: Date (if applicable) CC: Ty Wong MD CALCIUM,TOTAL Collected: 12/25/2017 Status: F Source: [place] 10:58 AM [facility] REPOSITORY TYPE CODE TESTS RESULT OUT OF RANGE REFERENCE UNITS LAB L501.2200 8.5-10.1 mg/dL Normal CA 9.1 Performed By: #### L501.2200 #### [facility] [address] [place], [address] DISCHARGE INSTRUCTION Observed: 12/24/2017 Status: F Source: [place] 12:53 PM [facility] REPOSITORY [facility] Medical Records Department [address] [place] [address] Instructions for Home/Discharge Instructions 12/18/17 0657 MR#: [id number] Acct: [id number] Name: KENDRA BARNES Rep #: [id number] : 1990 27 From: Inder Manriquez MD PCP: Ty Wong MD Status: DIS KISHAN <Inder Manriquez - Last Filed: 12/18/17 06:57> Discharge Diet: Light diet - advance as tolerated - if you have questions about your diet instructions, please talk to you doctor. Discharge Activity: May Not Drive - for 1 week or while taking narcotic pain medicine. May shower in (days): 1 Lifting Restrictions: 10 pounds Call your doctor if your incision/area has: Continuous Slow Oozing, Sudden Increased Bleeding, Increased Pain/ Swelling, Increased Redness, Foul Smelling Discharge Call your doctor if you observe: Fever of 101 or Higher Suture Line Care: Avoid Pulling/Pushing, Avoid Pinching/Bending Additional Dressing/Incision Instructions:: You may cover your incision with gauze and tape as needed to help protect from clothing. The surgical glue will gradually wear off over 1-2 weeks Allergies/Adverse Reactions: Allergies Penicillins Allergy (Verified 12/09/17 10:24) Hives hydroxyzine [From Vistaril] Adverse Reaction (Verified 12/09/17 10:24) makes me angry Medications to take at Discharge buPROPion SR [Wellbutrin SR (150mg tablets)] 150 mg PO BID 12/16/15 Lamotrigine [Lamictal Xr] 100 mg PO BID 03/25/16 Valacyclovir HCl [Valacyclovir] 500 mg PO DAILY 09/22/16 traZODone [Desyrel] 50 mg PO QHS PRN PRN 09/22/16 Amitriptyline HCl 25 mg PO QHS 05/22/17 Hydrocodone Bitart/Apap 5-325 [Leeds 5MG-325MG] 1 tablet PO Q6H PRN PRN 2 Days #8 tablet 12/18/17 Levothyroxine [Synthroid] 150 mcg PO DAILY #90 tab 12/18/17 Calcitriol [Rocaltrol] 0.25 mcg PO BID #28 cap 12/19/17 Calcium Citrate 200 mg PO TID #42 tab 12/19/17 Cholecalciferol (VIT D3) [Vitamin D3] 2,000 unit PO BID #56 tab 12/19/17 The following prescriptions were given: Hydrocodone Bitart/Apap 5-325 [Leeds 5MG-325MG] 1 tablet PO Q6H PRN PRN 2 Days #8 tablet PRN Reason: Pain Levothyroxine [Synthroid] 150 mcg PO DAILY #90 tab Calcitriol [Rocaltrol] 0.25 mcg PO BID #28 cap Cholecalciferol (VIT D3) [Vitamin D3] 2,000 unit PO BID #56 tab Calcium Citrate 200 mg PO TID #42 tab Primary Care Physician: Ty Wong MD [Primary Care Provider] - Test Results: Test results from this visit will be discussed in further detail at your follow-up appointment, if applicable. Please Follow Up With: Inder Manriquez MD - [phone] When: Call to make an appointment to be seen in about 10 days. <Piper Raphael - Last Filed: 12/19/17 14:11> Test Results: Test results from this visit will be discussed in further detail at your follow-up appointment, if applicable. 12/20/17 0545 <Electronically signed by Inder Manriquez MD> Date Inder Manriquez MD CC: Ty Wong MD CALCIUM,TOTAL Collected: 12/19/2017 Status: F Source: [place] 4:21 PM [facility] REPOSITORY TYPE CODE TESTS RESULT OUT OF RANGE REFERENCE UNITS LAB L501.2200 8.5-10.1 mg/dL Normal CA 8.7 Performed By: #### L501.2200 #### [place] [facility] [address] [place], [address] CALCIUM,TOTAL Collected: 12/19/2017 Status: F Source: [place] 6:32 AM [facility] REPOSITORY TYPE CODE TESTS RESULT OUT OF RANGE REFERENCE UNITS LAB L501.2200 8.5-10.1 mg/dL Low CA 8.0 Performed By: #### L501.2200 #### [facility] [address] [place], [address] OPERATIVE REPORT Observed: 12/19/2017 Status: F Source: [place] 5:42 AM [facility] REPOSITORY [facility] Medical Records Department [address] [place] [address] Operative Report 12/18/17 0952 MR#: [id number] Acct: [id number] Name: KENDRA BARNES Rep #: [id number] : 1990 27 From: Inder Manriquez MD PCP: Ty Wong MD Status: ADM KISHAN Y Location: [place] [address] Problem List (1) Multiple thyroid nodules Status: Acute Report of Operation Date of Procedure: 12/18/17 Pre-Operative Diagnosis: Atypical bilateral thyroid nodules Post-Operative Diagnosis: Same Surgery/Procedure Performed:: Total thyroidectomy, central lymph node inspection Description of Surgical Findings:: Timeout and informed consent was obtained. 27-year-old female was taken out from placement table under general ventricular-based anesthesia. Neck was gently extended and her neck was prepped transverse suprasternal incision was created sharp dissection was carried down through the substance tissue densities small flaps were raised the strap muscle was incised vertically and then a portion of the left strap muscle was incised this gain access to the superior pole of the left tedious sharp and blunt dissection using Harmonic scalpel and were needed hemoclips were used for hemostasis superior pole vessels identified secured then the middle thyroidal vein was identified secured all with harmonic scalpel the inferior pole a stress test there was some fatty 550 fullness and I carefully dissected free identifying the parathyroid and that portion of the tissue great care was taken to dissect directly upon the gland I was then able to rotate the gland anterior and see the course of the recurrent laryngeal nerve. Dissection was performed directly upon the posterior aspect of the gland as it was dissected off the anterior surface the trachea. The pyramidal lobe was then dissected free carefully was Harmonic Scalpel. In a similar fashion I address the right lobe which was larger than the left and had several extra nodules. Carefully and tediously the superior pole inferior pole and then medial aspect was addressed the gland could be rotated anteriorly and then I could identify the location of the superior parathyroid on the right inferior parathyroid on the right the course of the recurrent laryngeal nerve that dissection was performed directly off the anterior surface of trachea as on the left third ligament of various transected again were needed hemo-stasis was obtained with the harmonic and hemoclips if needed the gland was removed the sutures placed in the anterior superior aspect the right lobe. That portion of the procedure actually went in a very expeditious fashion. I then took some central fibrofatty tissue from the mid inferior portion of the neck. I explored the inferior neck left neck area and submitted some tissue that I thought possibly held lymph nodes. Frozen section suggested some fibrofatty tissue I felt that there was likely some lymph node tissue in there. I then inspected the right mid neck area and so doing identified gland which I thought was lymph node I sampled that in the right mid neck ended up being parathyroid that the vein had only been sampled the remainder that is nicely in place and nicely vascularized. The position of the inferior right parathyroid identify the inferior left parathyroid identified. Palpation and visualization failed to reveal any gross lymph node enlargement. At this point felt that further dissection was not indicated. I placed fibular in each side of the neck. The wound was closed by approximating the strap muscles in the midline with interrupted 3-0 Vicryl at the position was approximately the same the skin edges affect interrupted 5-0 Vicryl subdermal stitches. The william-incisional areas anesthetized with 10 cc of 0.5% Marcaine. Surgical glue was applied followed by Telfa and tape dressings. Sponge and instrument and needle counts were reported the surgeon be correct. Blood loss was minimal. Specimens include the total thyroid. Tissue from the inferior left neck felt to be likely lymph node tissue. Tissue from the inferior midline neck. Tissue from the right mid neck which on frozen section was a very small sampled fragment of the right superior parathyroid. Drains none. Blood loss minimal. Inder Manriquez M.D., F.A.C.S. Type of Anesthesia:: General Anesthesiologist: Zaire Elizabeth 12/19/17 0542 <Electronically signed by Inder Manriquez MD> Date Inder Manriquez MD CC: Ty Wong MD; Inder Manriquez MD Signed CALCIUM,TOTAL Collected: 12/18/2017 Status: F Source: [place] 3:08 PM [facility] REPOSITORY TYPE CODE TESTS RESULT OUT OF RANGE REFERENCE UNITS LAB L501.2200 8.5-10.1 mg/dL Normal CA 8.6 Performed By: #### L501.2200 #### [facility] [address] [place], [address] PARATHYROID Observed: 12/18/2017 Status: F Source: [place] 12:00 AM [facility] REPOSITORY Patient: KENDRA BARNES : 1990 (27/F) Acct Num: [id number] Phys: Inder Manriquez MD Unit Num: [id number] Loc: MS3 OP656-5 Specimen: [id number] Received: 12/18/17905 Spec Type: PARATHY TISSUES TISSUES: A. Parathyroid B. Lymph node of neck, NOS C. Thyroid gland, NOS D. Lymph node of neck, NOS E. Lymph node of neck, NOS COMMENT THYROID CANCER SUMMARY: Procedure total thyroidectomy Specimen integrity - intact Specimen size right lobe 4 x 3 x 2 cm, left lobe 3 x 2.5 x 1 cm and isthmus 1.5 x 0.5 x 0.5 cm Specimen weight 18.4 gm Tumor focality multifocal (right lobe, left lobe and extending into isthmus ) Dominant tumor: Tumor laterality right lobe Tumor size right lobe dominant tumor 3 x 1.5 x 1.2 cm Right lobe mass 1.5 cm in diameter. Left lobe tumor 0.7 x 0.5 x 0.5 cm Histologic type papillary carcinoma Variant classical and follicular Margins uninvolved by carcinoma Tumor capsule not present Lymph-Vascular invasion not identified Extrathyroidal extension not identified Lymph nodes (specimens C AND E) Number examined 5 out of 5 lymph nodes with no evidence of metastasis. Additional pathologic findings colloid nodules PATHOLOGIC STAGE: pT2 N0 Mx The above summary is in compliance with [employer] [place] [employer] (CAP) Cancer Protocols Checklist and [place] Joint Committee on Cancer (AJCC), Staging Manual, 8th Ed. All three tumors are similar in appearance and are completely contained within the thyroid gland. The margins are negative for all three tumors. No tumor has a capsule. No lymphvascular invasion is identified in any of the tumor. There is no extra parathyroidal extension or perineural invasion by carcinoma identified in any of the three tumors. Immunohistochemistry ([id number]) supports the above diagnosis. FROZEN SECTION DIAGNOSIS A. Right superior neck, is this lymph node or parathyroid?, biopsy: Parathyroid tissue. SJ: 12/18/17 B. Left inferior neck lymph node, biopsy: Fibrofatty tissue. AM: 12/18/17 Case has been reviewed in consultation with Dr. Mccallum who concurs with the above diagnosis. IDC:CHRISTIANO GROSS DESCRIPTION A - Received fresh for frozen section consultation labeled with the patient's name is a specimen designated lymph node/parathyroid tissue. The specimen consists of an irregular fragment of parker-pink soft tissue measuring 0.3 x 0.3 x 0.2 cm. The specimen is submitted in its entirety for frozen section consultation in one block. / AM: 12/18/17 B - Received fresh for frozen section consultation labeled with the patient's name is a specimen designated left inferior neck lymph node. The specimen consists of an irregular fragment of parker-pink soft tissue measuring 0.3 x 0.3 x 0.1 cm. The specimen is submitted in its entirety for frozen section consultation in one block. / AM: 12/18/17 C - Received in fixative is one container labeled with the patient's name and designated total thyroid, suture in anterior/superior aspect of right lobe. The specimen consists of a total thyroidectomy specimen weighing 18.4 gm. Also present in the container are two detached pieces of adipose tissue and pink-red soft tissue measuring 2 x 1.5 x 0.3 cm and 0.5 x 0.5 x 0.2 cm. The thyroid is oriented by a suture. The right lobe measures 4 x 3 x 2 cm and left lobe measures 3 x 2.5 x 1.5 cm and the isthmus measures 1.5 x 0.5 x 0.5 cm. The suture appears to be present in the anterior-inferior aspect of the lobe. No external parathyroid tissue is identified. The specimen is inked as follows: posterior surface right lobe, left lobe and isthmus black, anterior surface right lobe blue, anterior surface left lobe green and anterior surface isthmus yellow. Serial sections of the left lobe reveal a parker, solid nodule in the lower portion of the left lobe measuring 0.7 x 0.5 x 0.5 cm. This nodule focally also extends into the isthmus. Sections of the right lobe reveal two nodules in the middle and lower portion of the thyroid lobe. Both nodules are present side by side. One of the nodules has parker-white appearance and measures 1.5 cm in diameter and the second nodule has parker-pink solid cut surfaces and measures 3 x 1.5 x 1.2 cm. The entire specimen is submitted in 17 cassette as follows: 1 detached pieces of tissue, 2 isthmus, 3-8 left lobe (cassettes 5 AND 6 contain the nodule, cassette 3 contains the most superior portion of the thyroid lobe and cassette 8 contains the most inferior portion of the thyroid lobe), 9-17 right lobe (9 contains the most superior portion of the lobe and 17 contains the most inferior portion of the lobe). / SJ: 12/19/17 D - Received in saline is one container labeled with the patient's name and designated central compartment lymph node. The specimen consists of an irregular fragment of yellow fatty tissue measuring 1.5 x 1 x 0.2 cm. The specimen is submitted in its entirety in one cassette. / AM: 12/18/17 E - Received in saline is one container labeled with the patient's name and designated additional inferior neck. The specimen consists of multiple irregular fragments of yellow fatty tissue that in aggregate measure 2.5 x 1.5 x 0.2 cm. The specimen is submitted in its entirety in one cassette. / AM: TC:0 CPT: 88233, 41958 x4, 39652 x2 HEADER OPERATION: Thyroidectomy, total with central lymph node sampling PRE-OP DIAGNOSIS: Multiple thyroid nodules TISSUE SUBMITTED: A Sent fresh at 0901 Is this lymph node or parathyroid? right superior neck lymph node, B Sent fresh at 0905 left inferior neck lymph node or parathyroid?, C Total thyroid gland suture in anterior/ superior aspect of right lobe sent in formalin, D Sent in saline fresh central compartment lymph node, E Sent in saline fresh additional left inferior neck lymph node MICROSCOPIC DESCRIPTION Slides are reviewed. MICROSCOPIC DIAGNOSIS A. Right superior neck soft tissue, biopsy: Parathyroid tissue. B. Left inferior neck lymph node, biopsy: Fibrofatty tissue. No evidence of lymphoid tissue. C. Thyroid, total thyroidectomy: Papillary thyroid carcinoma. One benign lymph node. See cancer checklist below. See comment. D. Central compartment lymph node, biopsy: Parathyroid tissue. E. Additional inferior neck soft tissue, biopsy: Four out of four lymph nodes negative for malignancy. AM:roney 12/20/17 Signed Eric Bharath 12/25/17 <signature on file> Performed By: #### PPARA #### [facility] [address] [place], [address] IMMUNOHISTOCHEMISTRY Observed: 12/18/2017 Status: F Source: [place] 12:00 AM [facility] REPOSITORY Patient: KENDRA BARNES : 1990 (27/) Acct Num: [id number] Phys: Mitra BARRIOS,Inder Unit Num: [id number] Loc: MS3 [id number] Specimen: [id number] Received: 12/23/17 - [facility] Spec Type: IMMUNO TISSUES TISSUES: C. Thyroid gland, NOS - 5, 16, 10 SPECIMEN INFORMATION: Tissue Source: C Total thyroid gland Clinical Info: Multiple thyroid nodules Specimen Number: [id number] CPT code: 47405, 56267 x10 METHODOLOGY: Deparaffinized sections of prefer/formalin-fixed tissue or PAP/DQ stained slides are incubated with monoclonal/polyclonal antibodies/oligonucleotide probes. Localization is made via biotin free immunoperoxidase method. Appropriate controls are performed and reacted as expected. Results on target cell population are indicated in the following table: RESULTS: ANTIBODY / CLONE RESULT Block C5 TTF-1 (8G7G3/1) positive GAL3 (9C4) positive CK19 (A53-B/A2.26) positive CD56 (123C3.D5) negative Block C10 GAL3 (9C4) negative CK19 (A53-B/A2.26) negative CD56 (123C3.D5) negative Block C16 TTF-1 (8G7G3/1) positive GAL3 (9C4) positive CK19 (A53-B/A2.26) positive CD56 (123C3.D5) negative These tests were developed and their performance characteristics determined by [facility]. They may not have been cleared or approved by the U.S. Food and Drug Administration. The FDA has determined that such clearance or approval is not necessary. INTERPRETATION: C. Total thyroid gland, thyroidectomy: Papillary thyroid carcinoma. AM:roney 12/26/17 Case has been reviewed in consultation with Dr. Mccallum who concurs with the above diagnosis. IDC:[facility] [address] [address] Signed Eric Bharath 12/26/17 <signature on file> Performed By: #### PIMM #### [facility] [address] [place] [address]. [place], [place], [address] CBC-COMPLETE BLOOD CNT Collected: 12/16/2017 Status: F Source: [place] NO DIFF 6:48 AM [facility] REPOSITORY TYPE CODE TESTS RESULT OUT OF RANGE REFERENCE UNITS LAB L100.1000 4.4-11.0 K/mm3 Normal WBC 7.8 LAB L100.1200 4.2-5.4 M/mm3 Normal RBC 4.60 LAB L100.1300 12.0-15.0 g/dl Normal HGB 13.8 LAB L100.1400 37-47 % Normal HCT 41.1 LAB L100.1500 81-99 fL Normal MCV 89.3 LAB L100.1600 27.0-32.0 pg Normal MCH 30.0 LAB L100.1700 32-36 g/gl Normal MCHC 33.6 LAB L100.1810 11.6-14.6 % Normal RDW CV 12.5 LAB L100.1820 35.1-43.9 fl Normal RDW SD 40.4 LAB L100.1900 150-450 K/mm3 Normal PLT 255 LAB L100.2000 6.2-12.0 fl Normal MPV 10.6 Performed By: #### L100.0500 #### [facility] [address] [place], [address] BASIC METABOLIC Collected: 12/16/2017 Status: F Source: [place] PROFILE (BMP) 6:48 AM [facility] REPOSITORY TYPE CODE TESTS RESULT OUT OF RANGE REFERENCE UNITS LAB L501.0100 74-106 mg/dL Normal GLU 103 Result Comment: Fasting Glucose result from 100 to 125 mg/dL suggests IMPAIRED HOMEOSTASIS per A.D.A. criteria. Please note revised GLUCOSE reference range effective 2017. LAB L501.1000 7-18 mg/dL Normal BUN 14 LAB L501.1100 0.55-1.02 mg/dL Normal CREAT,SERUM 1.00 Result Comment: The validity of the calculated GFR AND GFRAA in patients over 70 years has not been determined. Clinical correlation is essential. LAB L501.1110 >60 mL/min Normal EST GFR 70 Result Comment: Non- GFR Calc LAB L501.1115 >60 mL/min Normal EST GFR - AA 85 Result Comment: GFR Calc LAB L501.1300 10-20 RATIO Normal BUN/CRE 14.0 LAB L501.2200 8.5-10.1 mg/dL CA Normal 8.9 LAB L501.5300 136-145 mmol/L NA Normal 145 LAB L501.5600 3.5-5.1 mmol/L Low K 3.4 LAB L501.5900 98-107 mmol/L CL Normal 105 LAB L501.6100 21.0-32.0 mmol/L Normal CO2 26.0 LAB L501.6200 5-15 Normal GAP 14 Performed By: #### L500.2500, L501.2300, L501.9520 #### [facility] [address] [place], [address] PHOSPHORUS Collected: 12/16/2017 Status: F Source: [place] 6:48 AM [facility] REPOSITORY TYPE CODE TESTS RESULT OUT OF RANGE REFERENCE UNITS LAB L501.2300 2.5-4.9 mg/dL Normal PHOS 3.2 Performed By: #### L500.2500, L501.2300, L501.9520 #### [facility] [address] [place], [address] THYROID STIM HORMONE Collected: 12/16/2017 Status: F Source: [place] (TSH) 6:48 AM [facility] REPOSITORY TYPE CODE TESTS RESULT OUT OF RANGE REFERENCE UNITS LAB L501.9520 0.358-3.74 uIU/mL Normal TSH 1.36 Performed By: #### L500.2500, L501.2300, L501.9520 #### [facility] [address] [place], [address] SURGERY VISIT REPORT Observed: 12/02/2017 Status: F Source: [place] 4:14 PM [facility] REPOSITORY [facility] [address] [place] [address] OFFICE VISIT Date of Service: 12/02/17 MR#: [id number] Acct: [id number] Name: KENDRA BARNES Rep #: [id number] : 1990 Provider: Inder Manriquez MD Age/Sex: 26/F Location: [facility] Status: Signed Intake Vital Signs12/02/17 Height 5 ft 8 in 12/02/17 Weight: 225 lb Intake Visit Reasons: discuss thyroid surgery Chief Complaint: thyroid nodules Monitoring And Evaluation Advisor Required: No Is patient in pain?: No Allergies Penicillins Allergy (Verified 12/02/17 14:33) Hives hydroxyzine [From Vistaril] Adverse Reaction (Verified 12/02/17 14:33) makes me angry Medications buPROPion SR [Wellbutrin Sr] 150 mg PO BID 12/16/15 [History Confirmed 12/02/17] Lamotrigine [Lamictal Xr] 100 mg PO BID 03/25/16 [History Confirmed 12/02/17] Valacyclovir HCl [Valacyclovir] 1,000 mg PO DAILY 09/22/16 [History Confirmed 12/02/17] traZODone [Desyrel] 50 mg PO QHS PRN PRN 09/22/16 [History Confirmed 12/02/17] Amitriptyline HCl 25 mg PO QHS 05/22/17 [History Confirmed 12/02/17] Cyclobenzaprine [Flexeril] 10 mg PO TID PRN #20 tab 09/16/17 [Rx Confirmed 12/02/17] Naproxen [Naprosyn] 500 mg PO BID PRN #20 tab 09/16/17 [Rx Confirmed 12/02/17] PFSH Medical History Multiple thyroid nodules (Acute) Anxiety (Acute) Depression (Acute) Insomnia (Acute) Thyroid cancer (Acute) Thyroid nodule (Acute) Surgical History S/P section (Acute) S/P hysterectomy (Acute) S/P surgical manipulation of ankle joint (Acute) S/P tonsillectomy and adenoidectomy (Acute) Status post laparoscopy (Acute) Family History Mother CAD (coronary artery disease) Social History Smoking Status: Never smoker HPI HPI HPI: KENDRA BARNES, is a 26 F who presents to the office today for ongoing surgical follow-up regarding bilateral thyroid nodules. My previous note reflects the following history. Subsequently on November 12, 2017 I performed an ultrasound-guided fine-needle aspiration of a right thyroid inferior nodule and a right thyroid superior nodule. Both of those demonstrated atypical follicular cells. I also at that same setting did a final aspiration of a vague atypical left thyroid nodule. That demonstrates atypical follicular cells suspicious for papillary thyroid cancer. The patient did have a preoperative radioactive iodine examination which suggested benign disease. She has no voice change. She has had no history of head neck radiation treatment. MR#:[id number]:[id number] Name: KENDRA BARNES [facility] #:[id number] : 1990 Provider:Inder Manriquez MD Age/Sex: 26/F Location:[facility] Status:Signed Intake Vital Signs 10/28/17 Height 5 ft 8 in 10/28/17 Weight: 220 lb 4 oz 10/28/17 Body Mass Index (BMI) 33.5 10/28/17 Blood Pressure 120/81 10/28/17 Blood Pressure Location Rt brachial 10/28/17 Blood Pressure Position Sitting 10/28/17 Respiratory Rate 20 10/28/17 Pulse Rate 99 Intake Visit Reasons: THYROID NODULE, U/S @ [facility] Chief Complaint: thyroid nodules Monitoring And Evaluation Advisor Required: No Is patient in pain?: No Allergies Penicillins Allergy (Verified 10/28/17 13:42) Hives hydroxyzine [From Vistaril] Adverse Reaction (Verified 10/28/17 13:42) makes me angry Medications buPROPion SR [Wellbutrin Sr] 150 mg PO BID 12/16/15 [History Confirmed 09/16/17] Lamotrigine [Lamictal Xr] 100 mg PO BID 03/25/16 [History Confirmed 09/16/17] Valacyclovir HCl [Valacyclovir] 1,000 mg PO DAILY 09/22/16 [History Confirmed 09/16/17] traZODone [Desyrel] 50 mg PO QHS PRN PRN 09/22/16 [History Confirmed 09/16/17] Amitriptyline HCl 25 mg PO QHS 05/22/17 [History Confirmed 09/16/17] Cyclobenzaprine [Flexeril] 10 mg PO TID PRN #20 tab 09/16/17 [Rx] Naproxen [Naprosyn] 500 mg PO BID PRN #20 tab 09/16/17 [Rx] Is last menstrual period known: No Post menopausal: No (hyster ) Patient : No PFSH Medical History Multiple thyroid nodules (Acute) Anxiety (Acute) Depression (Acute) Insomnia (Acute) Thyroid nodule (Acute) Surgical History S/P section (Acute) S/P hysterectomy (Acute) S/P surgical manipulation of ankle joint (Acute) S/P tonsillectomy and adenoidectomy (Acute) Status post laparoscopy (Acute) Family History Mother CAD (coronary artery disease) Social History Smoking Status: Never smoker HPI HPI HPI: KENDRA BARNES, is a 26 F who presents to the office today for surgical consultation regarding multiple thyroid nodules. The patient is employed at the [facility]. Her primary care physician is Dr. Ty Wong. On a routine nursing physical examination Dr. Wong detected a thyroid nodule. On October 04, 2017 at the [facility] thyroid ultrasound was obtained. The right lobe measures 5.7 x 1.9 x 1.6 cm and there is a 1.7 x 1.7 x 1.5 cm solid nodule and a 2.4 x 1.8 x 1.6 cm solid nodule. The left lobe measures 4.3 x 1.7 x 1.2 cm and there is a 9 mm nodule on the left. It is of additional note that the patient had thyroid laboratory on May 17, 2017 with a TSH of 1.33 she denies any head neck radiation. No family history of thyroid cancer. No pre-interventional dysphasia or hoarseness. Since it has been detected she thinks she has more of a globus feeling. ROS General General: Yes fatigue; no weight change, appetite, colon cancer, breast cancer or weakness HEENT HEENT: No difficulty swallowing, eye injury, eye surgery, swollen glands or hoarseness Endo Endocrine: No thyroid disease, diabetes mellitus, thyroid cancer, Hair loss, heat intolerance or cold intolerance Breast Breast: No left breast lump, right breast lump, nipple discharge, breast pain, abnormal mammogram, abnormal US or breast enlargement Musc Musculoskeletal: No back problems, arthritis, rheumatoid arthritis, gout or joint pain Cardio Cardiovascular: No murmur, pacemaker, heart disease, atrial fibrillation, high blood pressure, heart attack, heart stent, palpitations, shortness of breat with exertion or chest pain Resp Respiratory: No shortness of breath, No sleep apnea, No cough, No COPD, No asthma, No emphysema, No wheezing Gastro Gastrointestinal: No abdominal pain, No nausea or vomiting, No diarrhea, Yes constipation, No blood in stool, No acid reflux, No hemorrhoids, No ulcers, No gallbladder problem, No black,tarry stools Uli Hematologic: No blood thinners, No blood disorders, No bleeding, No anemia, No blood clots Neuro Neurologic: No weakness Exam [facility] Other: Neck is supple, the right thyroid nodule is palpable. I do not detect one. It moves with swallowing. Nontender. No cervical adenopathy. Carotids are 3+ no bruits. [place] is negative Chest Breast Palpation: No nipple discharge Cardio Heart Sounds: no murmurs Assessment AND Plan Problems 1. Multiple thyroid nodules E04.2 Plan 2 dominant solid thyroid nodules on the right and one borderline thyroid nodule on the left. I have recommended the patient ultrasound-guided final aspiration right thyroid 2 and left thyroid 1. She has had an opportunity to ask and have questions answered. 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 She presents with her today. There were no additional questions. We will schedule and proceed at her discretion. She is not on any anticoagulation. Cc: Dr. Ty Manriquez M.D., F.A.C.S. Coding Level of Care Code Off vis,new,level 2 Diagnoses Multiple thyroid nodules E04.2 10/28/17 1416<Electronically signed by Inder Manriquez MD> Date Inder Manriquez MD Assessment AND Plan Problems 1. Multiple thyroid nodules E04.2 Plan With the patient's present I have discussed the technique, benefits, risks and alternatives of a total thyroidectomy with possible central lymph node inspection and resection. She is aware of the technique, benefits, risks, alternatives. She was aware of the potential risk of injury to recurrent laryngeal nerves and parathyroids. She has had an opportunity to ask and have questions answered. She is aware that additional postoperative therapy may be required. She is aware that thyroid medication will be indicated. She has had an opportunity to ask and have questions answered. We will schedule and proceed at her discretion. I appreciate the opportunity of assisting with her surgical care. She is aware that her final aspiration demonstrated atypical follicular cells in both right-sided thyroid nodules and atypical cells in the left thyroid solitary nodule with suspicion for papillary thyroid cancer on the left Cc: Dr. Ty Manriquez M.D., F.A.C.S. Coding Level of Care Code Off vis,est,level 2 Diagnoses Multiple thyroid nodules E04.2 12/02/17 1614 <Electronically signed by Inder Manriquez MD> Date Inder Manriquez MD Cosigner Signature: Date (if applicable) CC: Ty Wong MD SURGERY VISIT REPORT Observed: 11/12/2017 Status: F Source: [place] 3:05 PM [facility] REPOSITORY [facility] [address] [place] [address] OFFICE VISIT Date of Service: 11/12/17 MR#: [id number] Acct: [id number] Name: KENDRA BARNES Rep #: [id number] : 1990 Provider: Inder Manriquez MD Age/Sex: 26/F Location: [facility] Status: Signed Intake Intake Visit Reasons: FNA--right x2, left x1 Chief Complaint: thyroid nodules Allergies Penicillins Allergy (Verified 10/28/17 13:42) Hives hydroxyzine [From Vistaril] Adverse Reaction (Verified 10/28/17 13:42) makes me angry Medications buPROPion SR [Wellbutrin Sr] 150 mg PO BID 12/16/15 [History Confirmed 09/16/17] Lamotrigine [Lamictal Xr] 100 mg PO BID 03/25/16 [History Confirmed 09/16/17] Valacyclovir HCl [Valacyclovir] 1,000 mg PO DAILY 09/22/16 [History Confirmed 09/16/17] traZODone [Desyrel] 50 mg PO QHS PRN PRN 09/22/16 [History Confirmed 09/16/17] Amitriptyline HCl 25 mg PO QHS 05/22/17 [History Confirmed 09/16/17] Cyclobenzaprine [Flexeril] 10 mg PO TID PRN #20 tab 09/16/17 [Rx] Naproxen [Naprosyn] 500 mg PO BID PRN #20 tab 09/16/17 [Rx] PFSH Medical History Multiple thyroid nodules (Acute) Anxiety (Acute) Depression (Acute) Insomnia (Acute) Thyroid nodule (Acute) Surgical History S/P section (Acute) S/P hysterectomy (Acute) S/P surgical manipulation of ankle joint (Acute) S/P tonsillectomy and adenoidectomy (Acute) Status post laparoscopy (Acute) Family History Mother CAD (coronary artery disease) Social History Smoking Status: Never smoker HPI HPI HPI: KENDRA BARNES, is a 26 F who presents to the office today for a planned thyroid nodule bilateral neck FNA. Her recent thyroid scan is as follows MR#: [id number]:[id number] Name: KENDRA BARNES [facility] #:[id number] : 1990F 26 From: Jhonatan Peterson DO PCP:Ty Wong MD Status:REG CLI Study:Thyroid Uptake Single or Mult Date of Exam:11/07/17 Exam#[id number] Ordering Dr: Ty Wong MD CLINICAL: 26-year-old female with reported history of thyroid nodularity I-123 THYROID UPTAKE and SCAN COMPARISON: Thyroid ultrasound report 10/04/2017 FINDINGS: The patient was administered a 309 uCi I-123 capsule by mouth. The 4-hour I-123 radioactive iodine thyroidal uptake was calculated to be 22.4 % (normal 5 to 25 %). The 24-hour I-123 radioactive iodine thyroidal uptake was calculated to be 44.9 % (normal 5 to 40 %). The I-123 thyroid scan demonstrates a focus of increased radiopharmaceutical concentration noted in the right lobe inferior pole-isthmus with otherwise relative decreased- homogeneous radiopharmaceutical concentration throughout remaining thyroid colloid of a U-shaped thyroid gland. There are no colloidal parenchymal hypofunctioning-cold nodules noted in either lobe of the thyroid gland. NM/Thyroid Uptake Single or Mult IMPRESSION: 1. UPPER LIMITS OF NORMAL 4- and abnormal elevated 24-hour I-123 radioactive iodine thyroidal uptakes. 2. 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 Electronically Signed: Jhonatan Peterson DO at 8:26 EDT Tel , Service support , CC: Ty Wong MD Town Justice: Signed Office Procedures Fine Needle Aspiration Provider Documentation Details: Ultrasound-guided fine-needle aspiration right thyroid nodules 2 and left thyroid nodule 1 Timeout and informed consent was obtained. 26-year-old female was taken to the procedure room placed on the table. The neck was prepped with Betadine. Ultrasound was performed. There were 2 nodules located in the right thyroid one inferior one more superior. All 3 lesions were sampled with the same technique. Under ultrasound guidance 1% lidocaine mixed 50-50 with 0.5% Marcaine was used as a local anesthetic. Throughout the procedure 1.5 cc was used. Local was instilled. Then a 25-gauge needle was advanced into the lesion and a rapid bxfo-ygm-ffbwc motion performed. Specimen was smeared out on slides. The slides were then treated with fixative. The 2 nodules on the right were rather dominant and could be easily sampled. The 9 mm lesion on the left was more difficult to visualize and sample. 2 separate passes were performed for each lesion. The patient did become presyncopal. She was placed in Trendelenburg position with cold forehead wrap. She recovered. She was observed and was not discharged and stay until stable. All slides were treated with fixative. There was sent for cytology. Inder Manriquez M.D., F.A.C.S. FNA [id number] Thyroid (Bilateral) Assessment AND Plan Problems 1. Multiple thyroid nodules E04.2 Plan 26-year-old female. Based upon the ultrasound and nuclear medicine scan and final aspiration I suspect multinodular goiter/benign nodules. The thyroid scan suggested a possible hyperactive adenomatous nodule of the right thyroid. The patient did become vasovagal with a procedure but otherwise tolerated it well. Her TSH preintervention was normal She will be notified of cytology results as they become available. Further surgical treatment options can then be considered. I am suspecting a benign process at this time. Cc: Dr. Ty Manriquez M.D., F.A.C.S. Orders Orders: Coding Level of Care Code No Charge Diagnoses Multiple thyroid nodules E04.2 Additional Codes FNA - Fine Needle Aspiration: 03277 Thyroid (14309) 11/12/17 1505 <Electronically signed by Inder Manriquez MD> Date Inder Manriquez MD Cosigner Signature: Date (if applicable) CC: Ty Wong MD ASPIRATION (SLIDES Observed: 11/12/2017 Status: F Source: [place] ONLY) 2:30 PM [facility] REPOSITORY Patient: KENDRA BARNES : 1990 () Acct Num: [id number] Phys: Mitra BARRIOS,Inder Unit Num: [id number] Loc: [facility] Specimen: [id number] Received: 11/13/17899 Spec Type: ASPIRATION TISSUES TISSUES: A. Thyroid gland, NOS - RIGHT INFERIOR NODULE B. Thyroid gland, NOS - LEFT C. Thyroid gland, NOS - RIGHT SUPERIOR NODULE COMMENT Correlation with clinical, radiologic findings and appropriate follow up are necessary. Case has been reviewed in consultation with Dr. Sinha who concurs with the above diagnosis. IDC:AM CYTOLOGY GROSS A - Received are four smears labeled with the patient's name and designated per the requisition as right thyroid inferior nodule. Submitted for staining. B - Received are four smears labeled with the patient's name and designated per the requisition as left thyroid nodule. Submitted for staining. C - Received are four smears labeled with the patient's name and designated per the requisition as right thyroid superior nodule. Submitted for staining. / 11/13/17 TC:5 CPT: 01981 x3 CYTOLOGY STUDY Slides are reviewed. DIAGNOSIS CYTOLOGY A. Right thyroid, inferior nodule, FNA (smears): Cellular follicular lesion with atypical follicular cells of undetermined significance. Adequate for evaluation. B. Left thyroid nodule, FNA (smears): Atypical follicular cells noted, suspicious for papillary thyroid carcinoma. Adequate for evaluation. C. Right thyroid, superior nodule, FNA (smears): Atypical follicular cells of undetermined significance. Adequate for evaluation. SJ:roney 11/14/17 HEADER OPERATION: Bilateral thyroid FNA PRE-OP DIAGNOSIS: Bilateral thyroid nodules TISSUE SUBMITTED: A Right thyroid inferior nodule 4 slides, B Left thyroid nodule 4 slides, C Right thyroid superior nodule 4 slides Signed Dylan Mccallum 11/15/17 <signature on file> Performed By: #### PASPS #### [facility] [address] [place], [place], [address] THYROID UPTAKE Observed: 11/07/2017 Status: F Source: [place] SINGLE OR MULT 8:27 AM [facility]ENDING [facility] TO [facility] REPOSITORY [facility] [place] [address] [place] [address] Thyroid Uptake Single or Mult MR#: [id number] Acct: [id number] Name: KENDRA BARNES Rep #: [id number] : 1990 F 26 From: Jhonatan Peterson DO PCP: Ty Wong MD Status: REG CLI Study: Thyroid Uptake Single or Mult Date of Exam: 11/07/17 Exam# [id number] Ordering Dr: Ty Wong MD CLINICAL: 26-year-old female with reported history of thyroid nodularity I-123 THYROID UPTAKE and SCAN COMPARISON: Thyroid ultrasound report 10/04/2017 FINDINGS: The patient was administered a 309 uCi I-123 capsule by mouth. The 4-hour I-123 radioactive iodine thyroidal uptake was calculated to be 22.4 % (normal 5 to 25 %). The 24-hour I-123 radioactive iodine thyroidal uptake was calculated to be 44.9 % (normal 5 to 40 %). The I-123 thyroid scan demonstrates a focus of increased radiopharmaceutical concentration noted in the right lobe inferior pole-isthmus with otherwise relative decreased- homogeneous radiopharmaceutical concentration throughout remaining thyroid colloid of a U-shaped thyroid gland. There are no colloidal parenchymal hypofunctioning-cold nodules noted in either lobe of the thyroid gland. NM/Thyroid Uptake Single or Mult IMPRESSION: 1. UPPER LIMITS OF NORMAL 4- and abnormal elevated 24-hour I-123 radioactive iodine thyroidal uptakes. 2. 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 Electronically Signed: Jhonatan Peterson DO at 8:26 EDT Tel , Service support , CC: Ty Wong MD Town Justice: Signed SURGERY VISIT REPORT Observed: 10/28/2017 Status: F Source: [place] 2[facility]16 PM [facility] [address] [place] [address] OFFICE VISIT Date of Service: 10/28/17 MR#: [id number] Acct: [id number] Name: KENDRA BARNES Rep #: [id number] : 1990 Provider: Inder Manriquez MD Age/Sex: 26/F Location: [facility] Status: Signed Intake Vital Signs10/28/17 Height 5 ft 8 in 10/28/17 Weight: 220 lb 4 oz 10/28/17 Body Mass Index (BMI) 33.5 Intake Visit Reasons: THYROID NODULE, U/S @ [facility] Chief Complaint: thyroid nodules Monitoring And Evaluation Advisor Required: No Is patient in pain?: No Allergies Penicillins Allergy (Verified 10/28/17 13:42) Hives hydroxyzine [From Vistaril] Adverse Reaction (Verified 10/28/17 13:42) makes me angry Medications buPROPion SR [Wellbutrin Sr] 150 mg PO BID 12/16/15 [History Confirmed 09/16/17] Lamotrigine [Lamictal Xr] 100 mg PO BID 03/25/16 [History Confirmed 09/16/17] Valacyclovir HCl [Valacyclovir] 1,000 mg PO DAILY 09/22/16 [History Confirmed 09/16/17] traZODone [Desyrel] 50 mg PO QHS PRN PRN 09/22/16 [History Confirmed 09/16/17] Amitriptyline HCl 25 mg PO QHS 05/22/17 [History Confirmed 09/16/17] Cyclobenzaprine [Flexeril] 10 mg PO TID PRN #20 tab 09/16/17 [Rx] Naproxen [Naprosyn] 500 mg PO BID PRN #20 tab 09/16/17 [Rx] Is last menstrual period known: No Post menopausal: No (hyster ) Patient : No PFSH Medical History Multiple thyroid nodules (Acute) Anxiety (Acute) Depression (Acute) Insomnia (Acute) Thyroid nodule (Acute) Surgical History S/P section (Acute) S/P hysterectomy (Acute) S/P surgical manipulation of ankle joint (Acute) S/P tonsillectomy and adenoidectomy (Acute) Status post laparoscopy (Acute) Family History Mother CAD (coronary artery disease) Social History Smoking Status: Never smoker HPI HPI HPI: KENDRA BARNES, is a 26 F who presents to the office today for surgical consultation regarding multiple thyroid nodules. The patient is employed at the [facility] [employer]. Her primary care physician is Dr. Ty Wong. On a routine nursing physical examination Dr. Wong detected a thyroid nodule. On October 04, 2017 at the [facility] thyroid ultrasound was obtained. The right lobe measures 5.7 x 1.9 x 1.6 cm and there is a 1.7 x 1.7 x 1.5 cm solid nodule and a 2.4 x 1.8 x 1.6 cm solid nodule. The left lobe measures 4.3 x 1.7 x 1.2 cm and there is a 9 mm nodule on the left. It is of additional note that the patient had thyroid laboratory on May 17, 2017 with a TSH of 1.33 she denies any head neck radiation. No family history of thyroid cancer. No pre-interventional dysphasia or hoarseness. Since it has been detected she thinks she has more of a globus feeling. ROS General General: Yes fatigue; no weight change, appetite, colon cancer, breast cancer or weakness HEENT HEENT: No difficulty swallowing, eye injury, eye surgery, swollen glands or hoarseness Endo Endocrine: No thyroid disease, diabetes mellitus, thyroid cancer, Hair loss, heat intolerance or cold intolerance Breast Breast: No left breast lump, right breast lump, nipple discharge, breast pain, abnormal mammogram, abnormal US or breast enlargement Musc Musculoskeletal: No back problems, arthritis, rheumatoid arthritis, gout or joint pain Cardio Cardiovascular: No murmur, pacemaker, heart disease, atrial fibrillation, high blood pressure, heart attack, heart stent, palpitations, shortness of breat with exertion or chest pain Resp Respiratory: No shortness of breath, No sleep apnea, No cough, No COPD, No asthma, No emphysema, No wheezing Gastro Gastrointestinal: No abdominal pain, No nausea or vomiting, No diarrhea, Yes constipation, No blood in stool, No acid reflux, No hemorrhoids, No ulcers, No gallbladder problem, No black,tarry stools Uli Hematologic: No blood thinners, No blood disorders, No bleeding, No anemia, No blood clots Neuro Neurologic: No weakness Exam HENMT Other: Neck is supple, the right thyroid nodule is palpable. I do not detect one. It moves with swallowing. Nontender. No cervical adenopathy. Carotids are 3+ no bruits. Chvostek is negative Chest Breast Palpation: No nipple discharge Cardio Heart Sounds: no murmurs Assessment AND Plan Problems 1. Multiple thyroid nodules E04.2 Plan 2 dominant solid thyroid nodules on the right and one borderline thyroid nodule on the left. I have recommended the patient ultrasound-guided final aspiration right thyroid 2 and left thyroid 1. She has had an opportunity to ask and have questions answered. 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 She presents with her today. There were no additional questions. We will schedule and proceed at her discretion. She is not on any anticoagulation. Cc: Dr. Ty Manriquez M.D., F.A.C.S. Coding Level of Care Code Off vis,new,level 2 Diagnoses Multiple thyroid nodules E04.2 10/28/17 1416 <Electronically signed by Inder Manriquez MD> Date Inder Manriquez MD Cosigner Signature: Date (if applicable) CC: Ty Wong MD THYROID Observed: 10/04/2017 Status: F Source: [place] 10:16 AM [facility] REPOSITORY [facility] Imaging Services [address] [place] [address] Thyroid MR#: [id number] Acct: [id number] Name: KENDRA BARNES Rep #: [id number] : 1990 F 26 From: Diego Becker MD PCP: Ty Wong MD Status: REG CLI Study: Thyroid Date of Exam: 10/04/17 Exam# [id number] Ordering Dr: Ty Wong MD STUDY: THYROID ULTRASOUND REASON FOR EXAM: Female, 26 years old. Asymmetric thyroid enlargement, right larger than left TECHNIQUE: Ultrasound evaluation of the thyroid was performed with real-time and static santana-scale imaging. COMPARISON: None. FINDINGS: RIGHT LOBE: The right lobe of the thyroid gland measures 5.7 x 1.9 x 1.6 cm. There is a homogeneous echotexture. There are 2 solid nodules of the right thyroid lobe extending into the isthmus. The nodules measure 1.7 x 1.7 x 1.5 cm and 2.4 x 1.8 x 1.6 cm. Both nodules are slightly hypoechoic with well-defined relatively hypoechoic capsule. No microcalcifications are seen. There is mild degree of intrinsic vascular flow both nodules. LEFT LOBE: The left lobe of the thyroid gland measures 4.3 x 1.7 x 1.2 cm. There is a homogeneous echotexture. Solitary hypoechoic nodule measuring 9 mm without vascular flow, irregular margins or microcalcifications. ISTHMUS: The isthmus measures 4 mm. The regional lymph nodes are normal. US/Thyroid IMPRESSION: 1. Multinodular thyroid gland measures 2.4 cm on the right side. FNA sampling is recommended, per ACR guidelines. Electronically Signed: Diego Becker MD at 8:07 EDT , Service support , CC: Ty Wong MD Town Justice: Signed RUBELLA IGG Collected: 10/02/2017 Status: F Source: [place] 10:55 AM [facility] REPOSITORY TYPE CODE TESTS RESULT OUT OF RANGE REFERENCE UNITS LAB L509.4000 IU/mL Normal Rubella IgG 98.8 Result Comment: Antibody results Interpretation of Immune Status < 5 IU/ml Presumed Non-immune 5 - < 10 IU/ml Equivocal > or = 10 IU/ml Presumed Immune Performed By: #### L509.4000 #### [facility] [address] [place], [address] HEP B SURFACE Collected: 10/02/2017 Status: F Source: [place] ANTIBODIES 10:55 AM [facility] REPOSITORY TYPE CODE TESTS RESULT OUT OF RANGE REFERENCE UNITS LAB L3100.0528 . Normal Hep B Reactive Jorge AB Result Comment: Non Reactive: Inconsistent with immunity, less than 10 mIU/mL Reactive: Consistent with immunity, greater than 9.9 mIU/mL Performed By: #### L3100.0528, L3100.3300, L3400.0000, L3400.1750 #### [facility] (refer to report for specific site) refer to report for address and phone number RUBEOLA IGG AB Collected: 10/02/2017 Status: F Source: [place] 10:55 AM [facility] REPOSITORY TYPE CODE TESTS RESULT OUT OF REFERENCE UNITS RANGE LAB L3100.3300 Immune >29.9 AU/mL Low RUBEOLA 72242 < 25.0 Result Comment: Negative <25.0 Equivocal 25.0 - 29.9 Positive >29.9 Presence of antibodies to Rubeola is presumptive evidence of immunity except when acute infection is suspected. Performed at: - [facility] [id number] Activity Leader: Wicho Hernandez PhD, Phone: [phone] Performed By: #### L3100.0528, L3100.3300, L3400.0000, L3400.1750 #### [facility] (refer to report for specific site) refer to report for address and phone number V-ZOSTER IGG Collected: 10/02/2017 Status: F Source: [place] (IMMUNITY) 10:55 AM [facility] REPOSITORY TYPE CODE TESTS RESULT OUT OF RANGE REFERENCE UNITS LAB L3400.0000 Immune >165 index Normal VZOST IgG 452 [id number] Result Comment: Negative <135 Equivocal 135 - 165 Positive >165 A positive result generally indicates exposure to the pathogen or administration of specific immunoglobulins, but it is not indication of active infection or stage of disease. Performed By: #### L3100.0528, L3100.3300, L3400.0000, L3400.1750 #### [facility] (refer to report for specific site) refer to report for address and phone number MUMPS ANTIBODY,IGG Collected: 10/02/2017 Status: F Source: [place] 10:55 AM [facility] REPOSITORY TYPE CODE TESTS RESULT OUT OF RANGE REFERENCE UNITS LAB L3400.1750 Immune >10.9 AU/mL Low MUMPS,IgG < 9.0 Result Comment: Negative <9.0 Equivocal 9.0 - 10.9 Positive >10.9 A positive result generally indicates past exposure to Mumps virus or previous vaccination. Performed By: #### L3100.0528, L3100.3300, L3400.0000, L3400.1750 #### [facility] (refer to report for specific site) refer to report for address and phone number 12 LEAD ELECTROCARDIOGRAM Observed: 09/17/2017 Status: F Source: [place] 1:35 PM [facility] REPOSITORY [facility] Cardiovascular Services [address] [place] [address] 12 Lead EKG 09/12/17 1358 MR#: [id number] Acct: [id number] Name: KENDRA BARNES Rep #: [id number] : 1990 26 From: Pa Sprague MD Attending Dr: Status: DEP ER Ordering Dr: Mihcael Celis MD Date: 09/12/17 Location: ED Sex: F C Admitted: Test Reason : DIZZINESS Blood Pressure : / mmHG Vent. Rate : 067 BPM Atrial Rate : 067 BPM P-R Int : 124 ms QRS Dur : 086 ms QT Int : 414 ms P-R-T Axes : 035 055 054 degrees QTc Int : 437 ms Normal sinus rhythm Normal ECG Confirmed by PA SPRAGUE MD ([id number]), editor in chief BRIANNA DANIEL ([id number]) on 09/17/2017 1:35:46 PM Referred By: BENJAMIN Confirmed By:PA SPRAGUE MD 09/17/17 1335 Date Pa Sprague MD CC: MD Melida Celis; Ty Wong MD Signed EMERGENCY DEPARTMENT Observed: 09/16/2017 Status: F Source: [place] SUMMARY 3:51 PM [facility] REPOSITORY [facility] Medical Records Department [address] [place] [address] Emergency Department Summary 09/16/17 0919 MR#: [id number] Acct: [id number] Name: KENDRA BARNES Rep #: [id number] : 1990 26 From: Aquilino Flores MD PCP: Ty Wong MD Status: DEP ER - ER Visit Summary Date of Service: 09/16/17 Chief Complaint: Back pain History of Present Illness: The patient is a 26 F with low back pain that started suddenly yesterday. She was at the gym and putting down a 40 pound weight bar. The pain is in her lower back and it is worse with moving and bending. She never had this before. She took some Tylenol this morning with minimal relief. Patient has a history of anxiety, depression, bipolar disorder, hysterectomy, C-sections, and ankle surgery. Physical Examination: Vital signs unremarkable. Afebrile. Patient is sitting upright, self bracing her back. Appears uncomfortable but not toxic or in distress. Heart regular. No respiratory distress. Abdomen soft and nontender. Back is tender to palpation over the lower lumbar spine. Straight leg raise negative. Neurovascular intact distally. Good strength and sensation. Skin appears normal. Test Results: Because of the midline spine pain, x-rays were obtained. Emergency Department Course and Treatment: Patient was treated with Norflex and Toradol while awaiting results of her x-rays. Patient had continued pain and also received a dose of subcutaneous Dilaudid. X-ray's were negative. Patient had continued pain but was able to ambulate. She had good strength, sensation, and normal reflexes. She has no findings to suggest infection. Nothing to suggest a nerve issue, fracture, or vascular issue. I suspect this is myofascial back pain from a spasm. She will be prescribed anti-inflammatories and Flexeril. She will go home to rest and follow-up with her PCP. Return for any new or worsening issues. Treatment Plan: As above Disposition: Discharged Impression: 1. Acute low back pain This note was generated with Nirvanix dictation software. It may contain incorrect words, spelling, and punctuation that were not noted in review of the chart prior to signing ED Disposition - Plan for ED Patient: Chief Complaint: Back Referrals: Ty Wong MD [Primary Care Provider] - What to do if you have Problems For any increased pain, shortness of breath, bleeding, nausea or vomiting, chest pain, or any unexpected problems, contact your Primary Care Provider. Call [facility] ([phone]) or report to the closest Emergency Room. Call 911 if necessary. 09/16/171550 <Electronically signed by Aquilino Flores MD> Date Aquilino Flores MD Cosigner Signature (If Indicated): Date CC: Ty Wong MD DISCHARGE INSTRUCTION Observed: 09/16/2017 Status: F Source: [place] 3:51 PM [facility] REPOSITORY [facility] Medical Records Department [address] [place] [address] Discharge Instruction 09/16/17 1050 MR#: [id number] Acct: [id number] Name: KENDRA BARNES Maria Teresa Rep #: [id number] : 1990 26 From: Aquilino Flores MD PCP: Ty Wong MD Status: [facility] ER ED Disposition - Plan for ED Patient: Chief Complaint: Back Instructions: ED Spasm Back No Trauma Prescriptions: Naproxen [Naprosyn] 500 mg PO BID PRN #20 tab Cyclobenzaprine [Flexeril] 10 mg PO TID PRN #20 tab PRN Reason: Muscle Spasm Referrals: Ty Wong MD [Primary Care Provider] - What to do if you have Problems For any increased pain, shortness of breath, bleeding, nausea or vomiting, chest pain, or any unexpected problems, contact your Primary Care Provider. Call [facility] ([phone]) or report to the closest Emergency Room. Call 911 if necessary. 09/16/171550 <Electronically signed by Aquilino Flores MD> Date Aquilino Flores MD Cosigner Signature (If Indicated): Date CC: Ty Wong MD LUMBAR SPINE 2 OR 3 Observed: 09/16/2017 Status: F Source: [place] VIEWS 9:18 AM [facility] REPOSITORY [facility] Imaging Services [address] [place] [address] Lumbar Spine 2 or 3 Views MR#: [id number] Acct: [id number] Name: KENDRA BARNES Rep #: [id number] : 1990 F 26 From: Edd Jones MD PCP: Ty Wong MD Status: REG ER Study: Lumbar Spine 2 or 3 Views Date of Exam: 09/16/17 Exam# [id number] Ordering Dr: Aquilino Flores MD STUDY: X-RAY - LUMBAR SPINE REASON FOR EXAM: Female, 26 years old. Low back pain and bilateral lower extremity pain following injury. TECHNIQUE: 3 view(s) of the lumbar spine were obtained. COMPARISON: None FINDINGS: Normal lumbar lordosis. There is no substantial scoliosis. There is a normal alignment of the vertebrae. Normal vertebral bodies and endplates. Normal disc space heights. There is lumbarization of the S1 vertebrae. The soft tissue structures are unremarkable. RAD/Lumbar Spine 2 or 3 Views IMPRESSION: Normal x-ray examination of the lumbar spine. Electronically Signed: Edd Jones MD at 10:15 EDT Tel [phone], Service support , CC: Aquilino Flores MD; Ty Wong MD Town Justice: Signed EMERGENCY DEPARTMENT Observed: 09/12/2017 Status: F Source: [place] SUMMARY 4:05 PM [facility] REPOSITORY [facility] Medical Records Department [address] [place] [address] Emergency Department Summary 09/12/17 1357 MR#: [id number] Acct: [id number] Name: KENDRA BARNES Rep #: [id number] : 1990 26 From: Michael Celis MD PCP: Ty Wong MD Status: DEP ER - ER Visit Summary Date of Service: 09/12/17 Chief Complaint: [] Dizzy spells on and off for weeks History of Present Illness: The patient is a 26 F [] she reports had dizzy spells on and off for weeks that paroxysmally caused her to feel as if things are spinning she works here in the surgery area, she went to lunch at right after lunch she began to have sense of spinning sensation she needed to lay down she did not have syncope, she has no headache no change in vision #6 paresthesias. Her review of systems otherwise negative no fever no cough she is status post hysterectomy distant as such denies her bowel and bladder habits have been normal No other trigger triggers or exacerbates the dizzy spells that simply come on paroxysmally she usually just lays down until the past she has no HEENT or ear symptoms or findings, she has not seen her physicians yet for this Physical Examination: [] Her vital signs are within normal range her pupils equal reactive extra muscles are full her neck is very supple the lungs are clear the heart tones are normal oral cavity is unremarkable moist lungs are clear the heart tones are clear the abdomen soft slightly BMI 34, upper lower extremities unremarkable neurologically cranial nerves are intact there is full range of extraocular muscles without nystagmus the upper extremities exam is normal motion sensation lower extremity exam normal since sensation her speech is clear and his understand her visual daniel are intact Test Results: [] Emergency Department Course and Treatment: [] Patient's labs EKG all generally unremarkable, head CT shows nothing acute but some ethmoid thickening Patient does not have any clinical signs of sinusitis whenever I was concerned that the ethmoid thickening could be early sinusitis contributing to her intermittent dizziness I explained this to her at this time she will be started on Flonase Augmentin Mucinex Antivert fu her family doctor return for change in symptoms States she is feeling better she understands all the above return for change in symptoms Treatment Plan: [] Disposition: [] Stable Impression: [] Intermittent dizziness, possible ethmoid sinusitis This note was generated with Nirvanix dictation software. It may contain incorrect words, spelling, and punctuation that were not noted in review of the chart prior to signing ED Disposition - Plan for ED Patient: Chief Complaint: Syncope Referrals: Ty Wong MD [Primary Care Provider] - What to do if you have Problems For any increased pain, shortness of breath, bleeding, nausea or vomiting, chest pain, or any unexpected problems, contact your Primary Care Provider. Call [facility] ([phone]) or report to the closest Emergency Room. Call 911 if necessary. 09/12/17 1605 <Electronically signed by Michael Celis MD> Date Michael Celis MD Cosigner Signature (If Indicated): Date CC: Ty Wong MD DISCHARGE INSTRUCTION Observed: 09/12/2017 Status: F Source: [place] 3:01 PM [facility] REPOSITORY [facility] Medical Records Department [address] [place] [address] Discharge Instruction 09/12/17 1456 MR#: [id number] Acct: [id number] Name: KENDRA BARNES Rep #: [id number] : 1990 26 From: Michael Celis MD PCP: Ty Wong MD Status: REG ER ED Disposition - Plan for ED Patient: Chief Complaint: Syncope Instructions: ED Dizziness Syncope Fainting W Pre, ED Sinusitis Abx Tx Prescriptions: levoFLOXacin tablet [Levaquin tablet] 750 mg PO DAILY #10 tab Meclizine HCl [Antivert] 25 mg PO TID PRN PRN #20 tab PRN Reason: Dizziness Fluticasone Propionate [Flonase Allergy Relief] 15.8 ml NS BID #14 spray.susp Guaifenesin [Mucinex] 1,200 mg PO BID #10 tbmp.12hr Referrals: Ty Wong MD [Primary Care Provider] - What to do if you have Problems For any increased pain, shortness of breath, bleeding, nausea or vomiting, chest pain, or any unexpected problems, contact your Primary Care Provider. Call [facility] ([phone]) or report to the closest Emergency Room. Call 911 if necessary. 09/12/17 1501 <Electronically signed by Michael Celis MD> Date Michael Celis MD Cosigner Signature (If Indicated): Date CC: Ty Wong MD BRAIN/HEAD WITHOUT Observed: 09/12/2017 Status: F Source: [place] CONTRAST 1:56 PM [facility] REPOSITORY [facility] Imaging Services [address] [place] [address] Brain/Head without Contrast MR#: [id number] Acct: [id number] Name: KENDRA BARNES Rep #: [id number] : 1990 F 26 From: Edd Jones MD PCP: Ty Wong MD Status: REG ER Study: Brain/Head without Contrast Date of Exam: 09/12/17 Exam# [id number] Ordering Dr: Michael Celis MD STUDY: CT BRAIN WITHOUT CONTRAST REASON FOR EXAM: Female, 26 years old. Dizziness. Near syncopal episode. RADIATION DOSAGE (If Supplied By Facility): CTDIvol = ( 44.99 ) mGy, DLP = ( 779.24 ) mGycm TECHNIQUE: Transaxial CT imaging of the brain was performed without administration of intravenous contrast material. Individualized dose optimization techniques were used for this CT. COMPARISON: None. FINDINGS: Normal soft tissue structures. Normal calvarium. Normal size ventricles and extra-axial spaces for the patient's age. Normal white matter tracts of the cerebral hemispheres. Normal basal ganglia and thalami. Normal brainstem. Normal cerebellum. There is no intracranial hemorrhage. There are no findings of an acute ischemic infarction. Mild degree of mucosal thickening of the ethmoid sinuses. CT/Brain/Head without Contrast IMPRESSION: Mild degree of mucosal thickening of the ethmoid sinuses. Electronically Signed: Edd Jones MD at 14:42 EDT Tel [phone], Service support , CC: MD Melida Celis; Ty Wong MD Town Justice: Signed CHEST 1 VIEW Observed: 09/12/2017 Status: F Source: [place] (PORTABLE) 1:46 PM [facility] REPOSITORY [facility] Imaging Services [address] [place] [address]857 Chest 1 View (Portable) MR#: [id number] Acct: [id number] Name: KENDRA BARNES Rep #: [id number] : 1990 F 26 From: Edd Jones MD PCP: Marvin BARRIOS,Ty Status: PRE ER Study: Chest 1 View (Portable) Date of Exam: 09/12/17 Exam# [id number] Ordering Dr: Michael Celis MD STUDY: X-RAY CHEST REASON FOR EXAM: Female, 26 years old. Shortness of breath. TECHNIQUE: Single AP portable view of the chest. COMPARISON: Comparison is made with prior study dated December 16, 2015. FINDINGS: EKG electrodes are seen. The lungs are clear and expanded. There is no demonstrated pleural abnormality. Normal size heart. Normal mediastinum and arjun. Normal visualized pulmonary arteries. Normal visualized aortic arch and descending thoracic aorta. Normal visualized thoracic spine. Normal visualized ribs, clavicles, and shoulders. There is no demonstrated abnormality of the visualized soft tissue structures of the upper abdomen. RAD/Chest 1 View (Portable) IMPRESSION: Normal x-ray examination of the chest. Electronically Signed: Edd Jones MD at 14:10 EDT Tel [phone], Service support , CC: MD Melida Celis; Ty Wong MD Town Justice: Signed CBC W/DIFF, AUTOMATED Collected: 09/12/2017 Status: F Source: [place] 1:35 PM [facility] REPOSITORY TYPE CODE TESTS RESULT OUT OF RANGE REFERENCE UNITS LAB L100.1000 4.4-11.0 K/mm3 Normal WBC 6.5 LAB L100.1200 4.2-5.4 M/mm3 Normal RBC 4.67 LAB L100.1300 12.0-15.0 g/dl Normal HGB 14.3 LAB L100.1400 37-47 % Normal HCT 41.8 LAB L100.1500 81-99 fL Normal MCV 89.5 LAB L100.1600 27.0-32.0 pg Normal MCH 30.6 LAB L100.1700 32-36 g/gl Normal MCHC 34.2 LAB L100.1810 11.6-14.6 % Normal RDW CV 12.4 LAB L100.1820 35.1-43.9 fl Normal RDW SD 40.1 LAB L100.1900 150-450 K/mm3 Normal PLT 259 LAB L100.2000 6.2-12.0 fl Normal MPV 10.8 LAB L100.2100 47-70 % Normal NEUT% 57.8 LAB L100.2200 19-41 % Normal LY% 33.2 LAB L100.2300 0-10 % Normal MONO% 7.7 LAB L100.2400 0-5 % Normal EO% 0.8 LAB L100.2500 0-1 % Normal BASO% 0.3 LAB L100.2550 0.0-0.9 % Normal IM GRAN % 0.200 Result Comment: IG% - Immature Granulocytes (promyelocytes, myelocytes and metamyelocytes) > 1% indicates that a LEFT SHIFT is Present. LAB L100.2620 2.0-7.7 X10 3/uL Normal Absolute Neut 3.8 LAB L100.2720 0.83-4.51 X10 3/ul Normal Absolute Lymph 2.15 Performed By: #### L100.0100 #### [facility] [address] [place], [place], [address] BASIC METABOLIC Collected: 09/12/2017 Status: F Source: [place] PROFILE (BMP) 1:35 PM [facility] REPOSITORY TYPE CODE TESTS RESULT OUT OF RANGE REFERENCE UNITS LAB L501.0100 74-106 mg/dL Normal GLU 82 Result Comment: Please note revised GLUCOSE reference range effective 2017. LAB L501.1000 7-18 mg/dL High BUN 19 LAB L501.1100 0.55-1.02 mg/dL Normal CREAT,SERUM 1.01 Result Comment: The validity of the calculated GFR AND GFRAA in patients over 70 years has not been determined. Clinical correlation is essential. LAB L501.1110 >60 mL/min Normal EST GFR 70 Result Comment: Non- GFR Calc LAB L501.1115 >60 mL/min Normal EST GFR - AA 84 Result Comment: GFR Calc LAB L501.1255 ml/min Normal Estimated CRCL 84.40 LAB L501.1300 10-20 RATIO Normal BUN/CRE 18.8 LAB L501.2200 8.5-10 mg/dL Normal .1 CA 9.1 LAB L501.5300 136-14 mmol/L Normal 5 NA 142 LAB L501.5600 3.5-5. mmol/L Normal 1 K 4.1 LAB L501.5900 98-107 mmol/L Normal CL 105 LAB L501.6100 21.0-3 mmol/L Normal 2.0 CO2 28.0 LAB L501.6200 5-15 Normal GAP 9 Performed By: #### L500.2500 #### [facility] [address] [place], [place], [address] ,SERUM,HCG QUALI. Collected: Status: F Source: [place] 09/12/2017 1:35 PM PENDING SALE TO [facility] REPOSITORY TYPE CODE TESTS RESULT OUT OF REFERENCE UNITS RANGE LAB L700.7000 0-9 Nonpreg Negative Normal HCGSQUAL NEGATIVE LAB L700.6700 =>Qualitative mIU/mL Normal HCG Qual < 1 triggr Performed By: #### L700.6800 #### [facility] [address] [place], [address] ALLERGIES ALLERGIES DATE TYPE / CODE NAME / CODE REACTION SEVERITY SOURCE 04/17/2018 Drug Penicillins/ Hives Unknown [facility] [place] Allergy/4160 [id number]( Hospital [address](SNOMED XNORM) Repository CT) 04/17/2018 Drug hydroxyzine/ makes me angry Unknown [facility] Allergy/4160 [id number]([facility] [address](SNOMED XNORM) Repository CT) ENCOUNTERS ENCOUNTERS ADMIT/DISCHARGE ACCOUNT ADMITTING ENCOUNTER LOCATION SOURCE NUMBER CLASS 05/07/2018 [id number] Ambulatory [place] Dante 8 [facility] ing:BHIOP Repository 04/23/2018 [id number] Ambulatory Dante Dante 4 [facility] ing:NM Repository 04/15/2018/ [id number] Ambulatory [place] 8 1 [facility] ing:BHIOP Repository 03/12/2018/ [id number] Ambulatory BMSBuilding:B [place] 8 7 [facility] Repository 03/12/2018 [id number] Ambulatory [place] 2 [facility] ing:LAB.FUTUR Repository E 02/26/2018 [id number] Ambulatory Dante Dante 5 [facility] ing:NM Repository 02/25/2018 [id number] Ambulatory Dante Dante 7 [facility] ing:LAB.FUTUR Repository E 02/25/2018 [id number] Ambulatory Dante Dante 1 [facility] ing:LAB.FUTUR Repository E 02/24/2018 [id number] Ambulatory [place] Dante 9 [facility] ing:LAB Repository 01/31/2018 [id number] Ambulatory [place] 6 [facility] ing:LAB Repository 01/20/2018/ [id number] Ambulatory BMSBuilding:B [place] 8 7 [facility] Repository 01/14/2018/ [id number] Ambulatory BMSBuilding:B [place] 8 4 [facility] Repository 01/02/2018 [id number] Ambulatory [place] 3 [facility]:PAVLAB Repository 12/30/2017/ [id number] Ambulatory BMSBuilding:B [place] 8 4 [facility] Repository 12/25/2017 [id number] Ambulatory [place] Dante 9 [facility] ing:PAVLAB Repository 12/25/2017/ [id number] Ambulatory BMSBuilding:B [place] 8 9 [facility] Repository 12/18/2017/ [id number] AbnerInder vu Ambulatory [place] 8 5 [facility] ing:YW3Cyst: Repository [id number]: 1 12/18/2017/ [id number] Ambulatory BMSBuilding:B [place] 8 3 [facility] Repository 12/02/2017/ [id number] Ambulatory BMSBuilding:B Dante 8 5 [facility] Repository 11/13/2017 [id number] Ambulatory Dante Dante 6 [facility] ing:LABSPEC Repository 11/12/2017/ [id number] Ambulatory BMSBuilding:B Dante 8 2 [facility] Repository 11/07/2017 [id number] Ambulatory [place] Dante 4 [facility] ing:NM Repository 10/28/2017/ [id number] Ambulatory BMSBuilding:B [place] 8 9 [facility] Repository 10/04/2017 [id number] [facility] [place] [facility]US Repository 10/02/2017 [id number] Ambulatory [place] Dante 6 [facility] ing:MFPLAB Repository 09/16/2017/ [id number] Emergency Dante [place] 8 4 [facility] ing:ED Repository 09/12/2017/ [id number] Emergency Dante [place] 8 2 [facility] ing:ED Repository PAYERS PAYERS ENCOUNTER GUARANTOR PAYER SUBSCRIBER SOURCE 05/07/2018 KENDRA R Primary Insurance:[facility] KENDRA Morel Dante [id number] [facility] [place]: [facility] 9363-01-10YNOSaint [place] Number: Repository [address]Hgg: (859) [id number] [phone] (HP) Date:3932-54-37LL [address] [address]VQCCYKCPB, [place] [address]MG: CHECK WEBSITE 05/07/2018 Secondary NOT GIVENUNK Dante Insurance:SELF PAY [facility] Number: Effective Repository Date:2018-05-06 04/23/2018 KENDRA R Primary Insurance:[facility] KENDRA Morel Dante [id number] [facility] [place]: [facility] 5227-98-99JTHSaint [place], [place] Number: Repository [address]Weg: ([phone]) [id number] [phone] (HP) Date:3879-22-01WO [address] [address]AJKFHCFTB, [place] [address]HJ: CHECK WEBSITE 04/23/2018 Secondary KENDRA R Dante Insurance:[employer] [place]: [facility] Number: [id number] Hospital [id number] Repository Date:2018-02-28[address]ATTN: [place] [address]VM: 04/23/2018 Tertiary NOT GIVENUNK [place] Insurance:SELF PAY [facility] Number: Effective Repository Date:2018-02-28 04/15/2018 KENDRA R Primary Insurance:[facility] KENDRA Sanfordoster [id number] [facility] [place]: [facility] 7223-87-62ZGCSaint [place], [place] Number: Repository [address]Wyc: (698) [id number] [phone] (HP) Date:8432-46-20HT [address] [address]PFNWSTOVN, [place] [address]HU: CHECK WEBSITE 04/15/2018 Secondary NOT GIVENUNK Dante Insurance:SELF PAY [facility] Number: Effective Repository Date:2018-04-14 03/12/2018 KENDRA R Primary Insurance:[facility] KENDRA Morel [place] [id number] [address] [facility] [place]OB: [facility] 3798-99-93AHRSaint [place] Number: Repository [address]Siy: 330 [id number] [phone] () Date:3978-06-78KK [address] [address]AFROIWYGR, [place] [address]EH: CHECK WEBSITE 03/12/2018 Secondary NOT GIVENUNK Dante Insurance:SELF PAY [facility] Number: Effective Repository Date:2018-03-11 03/12/2018 KENDRA R Primary Insurance:[facility] KENDRA Morel Dante [id number] [address] [facility] [place]: [facility] 3921-65-67QGESaint [place] Number: Repository [address]Tsi: 330 [id number] [phone] () Date:6493-46-49QG [address] [address]NABKKAAGU, [place] [address]KH: CHECK WEBSITE 03/12/2018 Secondary NOT GIVENUNK Dante Insurance:SELF PAY [facility] Number: Effective Repository Date:2018-03-12 02/26/2018 KENDRA R Primary Insurance:[facility] KENDRA [place] [id number] [address] [facility] [place]: [facility] 9336-21-39VVNSaint [place] Number: Repository [address]Dpm: 330 [id number] [phone] () Date:8431-36-01CM [address] [address]SHDMZGSBZ, [place] [address]FI: CHECK WEBSITE 02/26/2018 Secondary NOT GIVENUNK [place] Insurance:SELF PAY [facility] Number: Effective Repository Date:2018-02-12 02/25/2018 KENDRA R Primary Insurance:[facility] KENDRA Morel [place] [id number] [address] [facility] [place]OB: [facility] 2093-20-04LUZSaint [place] Number: Repository [address]Ros: 330 [id number] [phone] () Date:3830-28-04TO [address] [address]NDKSPAMEM, [place] [address]FW: CHECK WEBSITE 02/25/2018 Secondary NOT GIVENUNK Dante Insurance:SELF PAY [facility] Number: Effective Repository Date:2018-02-25 02/25/2018 KENDRA R Primary Insurance:[facility] KENDRA R [place] [id number] [address] [facility]FL[facility]CAREDOB: [facility] [id number] [place], [place] Number: Repository [address]Xzu: 330 [id number] [phone] () Date:5683-89-34SD [address] [address]NVAGBMJTX, [place] [address]FK: CHECK WEBSITE 02/25/2018 Secondary NOT GIVENUNK [place] Insurance:SELF PAY [facility] Number: Effective Repository Date:2018-02-25 02/24/2018 KENDRA R Primary Insurance:[facility] KENDRA R [place] [id number] [address] [facility] [place]OB: [facility] 6206-81-50ULPSaint [place] Number: Repository [address]Jwe: 330 [id number] [phone] () Date:2813-25-58GM [address] [address]PWNDPVUVH, [place] [address]UJ: CHECK WEBSITE 02/24/2018 Secondary NOT GIVENUNK Dante Insurance:SELF PAY [facility] Number: Effective Repository Date:2018-02-24 01/31/2018 KENDRA R Primary NOT GIVENUNK Dante [id number] E Insurance:SELF [place]Y [place] Number: Effective Repository [address]Qad: 330) Date:2018-01-31 [phone] () 01/20/2018 KENDRA R Primary Insurance:[facility] KENDRA R [place] [id number] [address] [facility] [place]: [facility] 3385-72-39[facility] [place] Number: Repository [address]Zyu: 330 [id number] [phone] (HP) Date:5260-49-03WA [address] [address]CMVTHZFFO, [place] [address]SP: CHECK WEBSITE 01/20/2018 Secondary NOT GIVENUNK [place] Insurance:SELF PAY [facility] Number: Effective Repository Date:2018-01-20 01/14/2018 KENDRA R Primary Insurance:[facility] KENDRA R [place] [id number] [address] [facility] [place]OB: [facility] 2584-88-52RKUSaint [place], [place] Number: Repository [address]Dyl: 330 [id number] [phone] (HP) Date:9023-00-47ES [address] [address]YGBDGZQNA, [place] [address]WZ: CHECK WEBSITE 01/14/2018 Secondary NOT GIVENUNK [place] Insurance:SELF PAY [facility] Number: Effective Repository Date:2018-01-14 01/02/2018 KENDRA R Primary Insurance:[facility] KENDRA R Dante [id number] [address] [facility] [place]OB: [facility] 5637-50-43MNSSaint [place] Number: Repository [address]Wqt: 330 [id number] [phone] () Date:5798-53-40XX [address] [address]SFPPXOBEX, [place] [address]BX: CHECK WEBSITE 01/02/2018 Secondary NOT GIVENUNK [place] Insurance:SELF PAY [facility] Number: Effective Repository Date:2018-01-02 12/30/2017 KENDRA R Primary Insurance:[facility] KENDRA R Dante [id number] [address] [facility] [place]OB: [facility] 2051-56-93LVGSaint [place], [place] Number: Repository [address]Lik: 330 [id number] [phone] (HP) Date:4096-49-38KA [address] [address]HEOYHPZQG, [place] [address]NO: CHECK WEBSITE 12/30/2017 Secondary NOT GIVENUNK Dante Insurance:SELF PAY [facility] Number: Effective Repository Date:2017-12-30 12/25/2017 KENDRA R Primary Insurance:[facility] KENDRA Morel Dante [id number] [address] [facility] [place]OB: [facility] 6112-85-23GXYSaint [place], [place] Number: Repository [address]Dnm: 330 [id number] [phone] (HP) Date:7434-19-61XC [address] [address]UKDHMWQRP, [place] [address]MC: CHECK WEBSITE 12/25/2017 Secondary NOT GIVENUNK Dante Insurance:SELF PAY [facility] Number: Effective Repository Date:2017-12-25 12/25/2017 KENDRA R Primary Insurance:[facility] KENDRA R [place] [id number] [address] [facility] [place]OB: [facility] 8066-71-39ARZSaint [place], [place] Number: Repository [address]Ysq: 330 [id number] [phone] (HP) Date:8986-83-55YJ [address] [address]XYRZHZYIP, [place] [address]AZ: CHECK WEBSITE 12/25/2017 Secondary NOT GIVENUNK [place] Insurance:SELF PAY [facility] Number: Effective Repository Date:2017-12-25 12/18/2017 KENDRA R Primary Insurance:[facility] KENDRA Morel Dante [id number] [address] [facility] [place]OB: [facility] 8781-56-94SHISaint [place], [place] Number: Repository [address]Nhc: 330 [id number] [phone] (HP) Date:5406-15-66UN [address] [address]HGVLFQFBV, [place] [address]VA: CHECK WEBSITE 12/18/2017 Secondary NOT GIVENUNK Dante Insurance:SELF PAY [facility] Number: Effective Repository Date:2017-11-21 12/18/2017 KENDRA R Primary Insurance:[facility] KENDRA More[place] [id number] [address] [facility] [place]OB: [facility] 7983-34-91FNNSaint [place], [place] Number: Repository [address]Onh: 330 [id number] [phone] (HP) Date:3481-70-39IH [address] [address]ETWNYWFMQ, [place] [address]ZE: CHECK WEBSITE 12/18/2017 Secondary NOT GIVENUNK Dante Insurance:SELF PAY [facility] Number: Effective Repository Date:2017-12-18 12/02/2017 KENDRA R Primary Insurance:[facility] KENDRA Morel [place] [id number] [address] [facility] [place]OB: [facility] 2328-98-34LCCSaint [place], [place] Number: Repository [address]Kao: 330 [id number] [phone] () Date:3502-05-10DN [address] [address]JOFJLXEJX, [place] [address]FC: CHECK WEBSITE 12/02/2017 Secondary NOT GIVENUNK [place] Insurance:SELF PAY [facility] Number: Effective Repository Date:2017-11-26 11/13/2017 Kendra R Primary Insurance:[facility] Kendra Morel [place] [id number] [address] [facility] [place]DOB: [facility] 5231-94-47PFEOmro, [place] Number: Repository [address]Avw: 330 [id number] [phone] () Date:3964-05-04DE [address] [address]MLBOGZNDZ, [place] [address]LZ: CHECK WEBSITE 11/13/2017 Secondary NOT GIVENUNK [place] Insurance:SELF PAY [facility] Number: Effective Repository Date:2017-11-13 11/12/2017 Kendra R Primary Insurance:[facility] Kendra Morel Dante [id number] [address] [facility] [place]DOB: [facility] 9893-30-54ZGLOmro, [place] Number: Repository [address]Dlw: 330 [id number] [phone] () Date:1666-81-87PR [address] [address]PDRXOUSIS, [place] [address]KG: CHECK WEBSITE 11/12/2017 Secondary NOT GIVENUNK Dante Insurance:SELF PAY [facility] Number: Effective Repository Date:2017-11-12 11/07/2017 Kendra R Primary Insurance:[facility] Kendra Morel [place] [id number] [address] [facility] [place]DOB: [facility] 9295-09-45WIOOmro, [place] Number: Repository [address]Phi: 330 [id number] [phone] (HP) Date:3060-50-88RN [address] [address]NPEKQPHMY, [place] [address]PY: CHECK WEBSITE 11/07/2017 Secondary NOT GIVENUNK Dante Insurance:SELF PAY [facility] Number: Effective Repository Date:2017-10-15 10/28/2017 Kendra R Primary Insurance:[facility] Kendra R [place] [id number] [address] [facility] [place]DOB: [facility] 1566-00-29VYOOmro, [place] Number: Repository [address]Hjs: 330 [id number] [phone] (HP) Date:6033-76-61WF [address] [address]YMPUQXHQP, [place] [address]UG: CHECK WEBSITE 10/28/2017 Secondary NOT GIVENUNK [place] Insurance:SELF PAY [facility] Number: Effective Repository Date:2017-10-28 10/04/2017 Kendra R Primary Insurance:[facility] Kendra R [place] [id number] [address] [facility] [place]DOB: [facility] 4227-88-74DMFOmro, [place] Number: Repository [address]Cen: 330 [id number] [phone] (HP) Date:3353-88-81HK [address] [address]NGBGJQLPC, [place] [address]KE: CHECK WEBSITE 10/04/2017 Secondary NOT GIVENUNK Dante Insurance:SELF PAY [facility] Number: Effective Repository Date:2017-10-02 10/02/2017 Kendra R Primary Insurance:[facility] Kendra R Dante [id number] [place] [id number] Number: Repository [id number]: [phone] [id number] [phone] (HP) Date:[id number] [address] [address], [place] [address]UV: CHECK WEBSITE 10/02/2017 Secondary NOT GIVENUNK [place] Insurance:SELF PAY [facility] Number: Effective Repository Date:2017-10-02 09/16/2017 Kendra Morel Primary Insurance:[facility] Kendra Morel Dante [id number] [facility] [id number] Number: Repository [id number]: 330 [id number] Date:[id number] [address], [place] [address]JG: CHECK WEBSITE 09/16/2017 Secondary NOT GIVENUNK Dante Insurance:SELF PAY [facility] Number: Effective Repository Date:2017-09-16 09/12/2017 Kendra Morel Primary Insurance:[facility] Kendra Morel Dante [id number] [facility] [id number] Number: Repository [id number]: 330 [id number] [phone] () Date:[id number] [address] [address], [place] [address]DS: CHECK WEBSITE 09/12/2017 Secondary NOT GIVENUNK Dante Insurance:SELF PAY [facility] Number: Effective Repository Date:2017-09-12
== END 2018-05-05 23:59 ==
LOC: BHIOP 09:00
PROVIDERS: Family Provider Family Medicine; PCP Family Medicine; Referring Provider Psychiatry & Neurology Psychiatry; Visit Provider Psychiatry & Neurology Psychiatry
DX: F33.1 Major depressive disorder, recurrent, moderate (principal)
CPT/HCPCS: H0035; 90837; 90853

== ENCOUNTER → 2018-04-23 11:26 | Outpatient (CLI) | payer OTHER, MEDICAID, SELFPAY ==
--- NOTE | 2018-04-23 11:51 | NM_ITS ---
CLINICAL: 27-year-old female presenting for I-131 ablative therapy for known thyroid carcinoma. I-131 RADIOIODINE THERAPY NARRATIVE: The proper identification of the patient and verification of the I-131 dose was accomplished prior to I-131 provision. The patient was administered 165 mCi of I-131 per os. Prior to dosing, all risks, benefits and potential complications were explained in detail. Accordingly, an informed consent was obtained. The patient tolerated the ingestion without incident. Post therapeutic precautions and instructions were provided and understood. The patient will be followed as an outpatient by Dr. Bautista. Electronically Signed: Jhonatan Peterson DO at 23:13 EST Tel , Service support , NM/Therapy I-131
[2018-04-23 12:45] LABS: Absolute Lymphocyte Count 2.29 X10^3/ul (0.83-4.51); Absolute Neutrophil Count 4.5 X10^3/uL (2.0-7.7); Basophil# 0.03 X10^3/uL; Basophil% 0.4 % (0-1); Eosinophil# 0.01 X10^3/uL; Eosinophils% 0.1 % (0-5); Hematocrit 43.9 % (37-47); Hemoglobin 14.7 g/dl (12.0-15.0); Lymphocyte # 2.29 X10^3/ul (4.0); Lymphocyte % 31.9 % (19-41); Mean Corp Hgb Conc 33.5 g/gl (32-36); Mean Corpuscular Hgb 30.2 pg (27.0-32.0); Mean Corpuscular Volume 90.1 fL (81-99); Mean Platelet Vol. 10.7 fl (6.2-12.0); Monocyte# 0.36 X10^3/uL; Neutrophil # 4.48 X10^3/uL (2.7-7.7); Neutrophil % 62.5 % (47-70); POSITIVE COUNT NO; POSITIVE DIFFERENTIAL NO; POSITIVE MORPHOLOGY NO; Platelet Count 243 K/mm3 (150-450); RBC Distribution Width CV 12.9 % (11.6-14.6); RBC Distribution Width SD 42.2 fl (35.1-43.9); Red Blood Count 4.87 M/mm3 (4.2-5.4); White Blood Count 7.2 K/mm3 (4.4-11.0)
[2018-04-23 13:24] LABS: PTHIN 43.9 pg/mL (18.4-80.1)
[2018-04-23 14:02] LABS: ALB/GLOB Ratio 1.2 RATIO (0.9-2.4); AST(SGOT) 32 U/L (15-37); Alanine Aminotransfer ALT/SGPT 41 U/L (13-56); Albumin, Serum 4.2 g/dL (3.2-5.0); Alkaline Phosphatase 87 U/L (45-117); Anion Gap 9 (5-15); BUN 8 mg/dL (7-18); BUN/Creat Ratio 5.8 RATIO (10-20); Calcium,Total 9.2 mg/dL (8.5-10.1); Chloride 103 mmol/L (98-107); Creatinine, Serum 1.39 mg/dL (0.55-1.02); EST Glomerular Filtration Rate 48 mL/min (>60); Est Glom Filt Rate - Afr Amer 58 mL/min (>60); Free T3 < 0.5 pg/mL (2.18-3.98); Globulin 3.6 g/dL (2.2-4.2); Glucose 78 mg/dL (74-106); Magnesium 2.1 mg/dL (1.6-2.6); Potassium 3.9 mmol/L (3.5-5.1); Protein, Total 7.8 g/dL (6.4-8.2); Sodium Level 141 mmol/L (136-145); T4 Free Direct 0.16 ng/dL (0.76-1.46)
[2018-04-25 12:51] LABS: Anti-Thyroglobulin AB < 1.0 IU/mL (0.0-0.9); Thyroglobulin, Serum Qt. 1.6 ng/mL (1.5-38.5); Thyroid Peroxidase AB 12 IU/mL (0-34)
--- OUTSIDE RECORDS SUMMARY | 2018-07-25 15:32 | XMS RPT_ITS ---
:1990 Author Organization [place] Support Name Relationship Address Phone ERICH EWLCH/COLLETTE Unavailable [address] + [place] [address] JATINDER BARNES JR Unavailable [address] + [place] [address] WC Unavailable [address] + [place] [address] YURI, ERICH/COLLETTE Unavailable [address] + [place] [address] JATINDER BARNES JR Unavailable [address] + [place] [address] [facility] Unavailable [address] + [place] [address] YURI, ERICH/COLLETTE Unavailable [address] + [place] [address] JATINDER BARNES JR Unavailable [address] + [place] [address] [facility] Unavailable [address] + [place] [address] YURI, ERICH/COLLETTE Unavailable [address] + [place] [address] JATINDER BARNES JR Unavailable [address] + [place] [address] [facility] Unavailable [address] + [place] [address] YURI, ERICH/COLLETTE Unavailable [address] + [place] [address] MOLLY JR, JATINDER Unavailable [address] + [place] [address] [facility] Unavailable [address] + [place] [address] DRAVENSTOTT, ERICH/COLLETTE Unavailable [address] + [place] [address] MOLLY BLANK, JATINDER Unavailable [address] + [place] [address] [facility] Unavailable [address] + [place] [address] DRAVENSTOTT, ERICH/COLLETTE Unavailable [address] + [place] [address] MOLLY BLANK JATINDER Unavailable [address] + [place] [address] [facility] Unavailable [address] + [place] [address] DRAVENSTOTT, ERICH/COLLETTE Unavailable [address] + [place] [address] MOLLY BLANK, JATINDER Unavailable [address] + [place] [address] [facility] Unavailable [address] + [place] [address] DRAVENSTOTT, ERICH/COLLETTE Unavailable [address] + [place] [address] RONNIE BARNES JRITH Unavailable [address] + [place] [address] [facility] Unavailable [address] + [place] [address] DRAVENSTOKYLE, ERICH/COLLETTE Unavailable [address] + [place] [address] RONNIE BARNES JRITH Unavailable [address] + [place] [address] [facility] Unavailable [address] + [place] [address] DRAVENSTOTT, ERICH/COLLETTE Unavailable [address] + [place] [address] MOLLY JR, JATINDER Unavailable [address] + [place] [address] [facility] Unavailable [address] + [place] [address] DRAVENSTOTT, ERICH/COLLETTE Unavailable [address] + [place] [address] MOLLY JR, JATINDER Unavailable [address] + [place] [address] [facility] Unavailable [address] + [place] [address] DRAVENSTOTT, ERICH/COLLETTE Unavailable [address] + [place] [address] MOLLY JR, JATINDER Unavailable [address] + [place] [address] [facility] Unavailable [address] + [place] [address] DRAVENSTOTT, ERICH/COLLETTE Unavailable [address] + [place] [address] MOLLY JR, JATINDER Unavailable [address] + [place] [address] [facility] Unavailable [address] + [place] [address] DRAVENSTOTT, ERICH/OCLLETTE Unavailable [address] + [place] [address] MOLLY JR, JATINDER Unavailable [address] + [place] [address] [facility] Unavailable [address] + [place] [address] DRAVENSTOTT, ERICH/COLLETTE Unavailable [address] + [place] [address] MOLLY JR, JATINDER Unavailable [address] + [place] [address] [facility] Unavailable [address] + [place] [address] DRAVENSTOTT, ERICH/COLLETTE Unavailable [address] + [place] [address] MOLLY JR, JATINDER Unavailable [address] + [place] [address] [facility] Unavailable [address] + [place] [address] DRAVENSTOTT, ERICH/COLLETTE Unavailable [address] + [place] [address] MOLLY JR, JATINDER Unavailable [address] + [place] [address] [facility] Unavailable [address] + [place] [address] DRAVENSTOTT, ERICH/COLLETTE Unavailable [address] + [place] [address] MOLLY JR, JATINDER Unavailable [address] + [place] [address] [facility] Unavailable [address] + [place] [address] DRAVENSTOTT, ERICH/COLLETTE Unavailable [address] + [place] [address] MOLLY JR, JATINDER Unavailable [address] + [place] [address] [facility] Unavailable [address] + [place] [address] DRAVENSTOTT, ERICH/COLLETTE Unavailable [address] + [place] [address] MOLLY JR, JATINDER Unavailable [address] + [place] [address] [facility] Unavailable [address] + [place] [address] DRAVENSTOTT, ERICH/COLLETTE Unavailable [address] + [place] [address] MOLLY JR, JATINDER Unavailable [address] + [place] [address] [facility] Unavailable [address] + [place] [address] DRAVENSTOTT, ERICH/COLLETTE Unavailable [address] + [place] [address] MOLLY JR, JATINDER Unavailable [address] + [place] [address] [facility] Unavailable [address] + [place] [address] DRAVENSTOTT, ERICH/COLLETTE Unavailable [address] + [place] [address] MOLLY JR, JATINDER Unavailable [address] + [place] [address] [facility] Unavailable [address] + [place] [address] DRAVENSTOTT, ERICH/COLLETTE Unavailable [address] [phone] [place] [address] MOLLY JR, JATINDER Unavailable [address] + [place] [address] [facility] Unavailable [address] + [place] [address] DRAVENSTOTT, ERICH/COLLETTE Unavailable [address] [phone] [place] [address] MOLLY JR, JATINDER Unavailable [address] + [place] [address] [facility] Unavailable [address] + [place] [address] DRAVENSTOTT, ERICH/COLLETTE Unavailable [address] [phone] [place] [address] MOLLY JR, JATINDER Unavailable [address] + [place] [address] [facility] Unavailable [address] + [place] [address] Care Team Providers Name Role Phone Gail [...] Unknown C73 - Malignant Donavon REGALADO, 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 / C73(ICD-10) Hospital Repository 01/14/2018 Unknown T81.30XA - Donavon REGALADO, Active [place] Disruption of wound, [facility] unspecified, initial Hospital encounter / Repository T81.30XA(ICD-10) 12/31/2017 Unknown E83.51 - CebuInder vu Active [place] Hypocalcemia / Community E83.51(ICD-10) Hospital Repository 12/19/2017 Unknown G89.18 - Other acute CebuInder vu Active [place] postprocedural pain Community / G89.18(ICD-10) Hospital Repository 11/07/2017 Unknown E04.1 - Nontoxic Ty Wong Active [place] single thyroid [facility] nodule / Hospital E04.1(ICD-10) Repository 10/04/2017 Unknown E07.9 - Disorder of Ty Wong Active [place] thyroid, unspecified Community / E07.9(ICD-10) Hospital Repository 10/02/2017 Unknown Z02.89 - Encounter Ty Wong Active [place] for other [facility] administrative Hospital examinations / Repository Z02.89(ICD-10) PROCEDURES PROCEDURES No Procedure Records FoundRESULTS RESULTS THERAPY I-131 Observed: 04/23/2018 Status: F Source: [place] 11:51 [facility] REPOSITORY [facility] Imaging Services [address] [place] [address] Therapy I-131 MR#: [id number] Acct: [id number] Name: KENDRA BARNES Rep #: [id number] : 1990 F 27 From: Jhonatan Peterson DO PCP: Ty Wong MD Status: REG CLI Study: Therapy I-131 Date of Exam: 04/23/18 Exam# [id number] Ordering Dr: Emi Romero,Out o. CLINICAL: 27-year-old [...] Ty Wong MD; OUT OF TOWN DOCTOR Respiratory Technician: Signed CBC W/DIFF, AUTOMATED Collected: 04/23/2018 Status: F Source: [place] 11:39 AM [facility] REPOSITORY TYPE CODE TESTS RESULT OUT [...] Lymph 2.29 Performed By: #### L100.0100 #### [facility] [address] [place], [address] PTHIN Collected: 04/23/2018 Status: F Source: [place] 11:39 AM [facility] REPOSITORY TYPE CODE TESTS RESULT OUT OF RANGE REFERENCE UNITS LAB L509.1000 18.4-80.1 pg/mL Normal PTHIN 43.9 Performed By: #### L509.1000 #### [facility] [address] [facility] [place], [address] COMPREHENSIVE METABOLIC Collected: 04/23/2018 Status: F Source: [facility] 11:39 AM [facility] REPOSITORY TYPE CODE TESTS RESULT OUT [...] GAP 9 Performed By: #### L500.4050, L501.5200, L501.29883, L501.9520, L506.0400 #### [facility] [address] [facility] [place], [place], [address] MAGNESIUM Collected: 04/23/2018 Status: F Source: [place] 11:39 AM [facility] REPOSITORY TYPE CODE TESTS RESULT OUT OF RANGE REFERENCE UNITS LAB L501.5200 1.6-2.6 mg/dL Normal MG 2.1 Performed By: #### L500.4050, L501.5200, L501.45590, L501.9520, L506.0400 #### [facility] [address] [facility] [address] [place], [place], [address] FREE T3 Collected: 04/23/2018 Status: F Source: [place] 11:39 AM [facility] REPOSITORY TYPE CODE TESTS RESULT OUT OF RANGE REFERENCE UNITS LAB L501.35228 2.18-3.98 pg/mL Low FREE T3 < 0.5 Performed By: #### L500.4050, L501.5200, L501.91658, L501.9520, L506.0400 #### [facility] [address] [place], [address] THYROID STIM HORMONE Collected: 04/23/2018 Status: F Source: [place] (TSH) 11:39 AM [facility] REPOSITORY TYPE CODE TESTS RESULT OUT OF RANGE REFERENCE UNITS LAB L501.9520 0.358-3.74 uIU/mL High TSH 110.00 Performed By: #### L500.4050, L501.5200, L501.11937, L501.9520, L506.0400 #### [place] [facility] [address] [place], [place], [address] T4 FREE DIRECT Collected: 04/23/2018 Status: F Source: [place] 11:39 AM [facility] REPOSITORY TYPE CODE TESTS RESULT OUT OF REFERENCE UNITS RANGE LAB L506.0400 0.76-1.46 ng/dL Low T4 FREE 0.16 DIRECT Performed By: #### L500.4050, L501.5200, L501.31990, L501.9520, L506.0400 #### [facility] [address] [facility] [place], [place], [address] CALCIUM IONIZED Collected: 04/23/2018 Status: F Source: [place] 11:39 AM [facility] REPOSITORY TYPE CODE TESTS RESULT OUT OF RANGE REFERENCE UNITS LAB L3100.9600 4.5-5.6 mg/dL Normal IONIZED CA 5.4 Performed By: #### L3100.9600, L3300.6820, L3300.6900 #### [facility] (refer to report for specific site) refer to report for address and phone number THYROGLOBULIN W/ANTI-TG Collected: 04/23/2018 Status: F Source: [place] AB 11:39 AM [facility] REPOSITORY TYPE CODE TESTS RESULT OUT OF RANGE REFERENCE UNITS LAB L3300.7025 0.0-0.9 IU/mL Normal ANTI-TG < 1.0 AB Result Comment: Thyroglobulin Antibody measured by [facility] LAB L3400.1030 1.5-38.5 ng/mL Normal THYROGLOB [...] is 0.1 ng/mL Thyroglobulin measured by [facility] Immunometric Assay Performed By: #### L3100.9600, L3300.6820, L3300.6900 #### [facility] (refer to report for specific site) refer to report for address and phone number THYROID PEROXIDASE AB Collected: 04/23/2018 Status: F Source: [place] 11:39 AM [facility] REPOSITORY TYPE CODE TESTS RESULT OUT OF RANGE REFERENCE UNITS LAB L3300.6900 0-34 IU/mL Normal TPO AB 12 6676 Result Comment: Performed at: [facility] [id number] Train Operations Manager: Wicho Hernandez PhD, Phone: [phone] Performed By: #### L3100.9600, L3300.6820, L3300.6900 #### [facility] (refer to report for specific site) refer to report for address and phone number SURGERY VISIT REPORT Observed: 03/13/2018 Status: F Source: [place] 8:38 AM [facility] REPOSITORY [facility] [address] [place] [address] [address] [place] [address] OFFICE VISIT Date of Service: 03/12/18 MR#: [id number] Acct: [id number] Name: KENDRA BARNES Rep #: [id number] : 1990 Provider: Piper Raphael PA-C Age/Sex: 27/F Location: [facility] Status: Signed Intake Intake Visit Reasons: Incision Concerns Chief Complaint: s/p total thyroid Socially Responsible Investment Adviser Required: No Is patient in pain?: No [...] 05/22/17 [History Confirmed 03/12/18] Hydrocodone Bitart/Apap 5-325 [[place] 5MG-325MG] 1 tab PO Q6H PRN PRN [...] F Source: [place] I-131 SCAN 8:33 AM [facility] REPOSITORY [facility] Imaging Services [address] [place] [address] Thyroid Whole Body I-131 Scan MR#: [id number] Acct: [id number] Name: KENDRA BARNES Rep #: [id number] : 1990 F 27 From: Jhonatan Peterson DO PCP: Ty Wong MD Status: REG CLI Study: Thyroid Whole Body I-131 Scan Date of Exam: 02/26/18 Exam# [id number] Ordering Dr: Gail Bautista MD CLINICAL: 27-year-old [...] CC: Gail Bautista MD; Ty Wong MD Respiratory Technician: Signed FREE T3 Collected: 02/24/2018 Status: F Source: [place] 2:40 PM [facility] REPOSITORY TYPE CODE TESTS RESULT OUT OF RANGE REFERENCE UNITS LAB L501.16341 2.18-3.98 pg/mL Low FREE T3 < 0.5 Performed By: #### L501.55786, L501.9520, L506.0400 #### [facility] [address] [facility] [place], [place], [address] THYROID STIM HORMONE Collected: 02/24/2018 Status: F Source: [place] (TSH) 2:40 PM [facility] REPOSITORY TYPE CODE TESTS RESULT OUT OF RANGE REFERENCE UNITS LAB L501.9520 0.358-3.74 uIU/mL High TSH 50.40 Performed By: #### L501.71891, L501.9520, L506.0400 #### [facility] [place], [address] T4 FREE DIRECT Collected: 02/24/2018 Status: F Source: [place] 2:40 PM [facility] REPOSITORY TYPE CODE TESTS RESULT OUT OF REFERENCE UNITS RANGE LAB L506.0400 0.76-1.46 ng/dL Low T4 FREE 0.14 DIRECT Performed By: #### L501.49647, L501.9520, L506.0400 #### [facility] [address] [place] [address], [address] CBC, EMPLOYEE Collected: 01/31/2018 Status: F Source: [place] 4:05 PM [facility] REPOSITORY TYPE CODE TESTS RESULT OUT [...] Lymph 2.71 Performed By: #### L100.0200 #### [facility] [address] [place], [address] EMPLOYEE PROFILE Collected: 01/31/2018 Status: F Source: [place] 4:05 PM [facility] REPOSITORY TYPE CODE TESTS RESULT OUT [...] LDH 177 Performed By: #### L500.2900 #### [facility] [place], [address] NICOTINE URINE DRUG Collected: 01/31/2018 Status: F Source: [place] SCREEN 4:05 PM [facility] REPOSITORY TYPE CODE TESTS RESULT OUT [...] of Nicotine. Performed By: #### L505.6240 #### [facility] [address] [place], [place], [address] URINALYSIS, EMPLOYEE Collected: 01/31/2018 Status: F Source: [place] 4:05 PM [facility] REPOSITORY TYPE CODE TESTS RESULT OUT [...] ESTERASE Negative Performed By: #### L400.0100 #### [facility] [address] [place], [address] SURGERY VISIT REPORT Observed: 01/20/2018 Status: F Source: [place] 3:32 PM [facility] REPOSITORY [facility] [address] [place] [address] OFFICE VISIT Date of Service: 01/20/18 MR#: [id number] Acct: [id number] Name: KENDRA BARNES Rep #: [id number] : 1990 Provider: Piper Raphael PA-C Age/Sex: 27/F Location: [facility] Status: Signed Intake Intake Visit Reasons: Incision Concerns Chief Complaint: s/p total thyroid Socially Responsible Investment Adviser Required: No Is patient in pain?: No [...] 05/22/17 [History Confirmed 01/20/18] Hydrocodone Bitart/Apap 5-325 [[place] 5MG-325MG] 1 tab PO Q6H PRN PRN [...] 01/14/2018 Status: F Source: [place] 1:02 PM [facility] REPOSITORY [facility] [address] [place], [place] [address] OFFICE VISIT Date of Service: 01/14/18 MR#: [id number] Acct: [id number] Name: KENDRA BARNES Rep #: [id number] : 1990 Provider: Piper Raphael PA-C Age/Sex: 27/F Location: [facility] Status: Signed Intake Intake Visit Reasons: Concerns with incision site Chief Complaint: s/p total thyroid Socially Responsible Investment Adviser Required: No Is patient in pain?: No [...] 05/22/17 [History Confirmed 01/14/18] Hydrocodone Bitart/Apap 5-325 [[place] 5MG-325MG] 1 tab PO Q6H PRN PRN [...] Status: F Source: [place] (TSH) 12:52 PM [facility] REPOSITORY TYPE CODE TESTS RESULT OUT OF RANGE REFERENCE UNITS LAB L501.9520 0.358-3.74 uIU/mL Normal TSH 2.10 Performed By: #### L501.9520 #### [facility] [address] [place], [address] CALCIUM,TOTAL Collected: 01/02/2018 Status: F Source: [place] 12:51 PM [facility] REPOSITORY TYPE CODE TESTS RESULT OUT OF RANGE REFERENCE UNITS LAB L501.2200 8.5-10.1 mg/dL Normal CA 9.1 Performed By: #### L501.2200 #### [facility] [address] [place], [address] SURGERY VISIT REPORT Observed: 12/30/2017 Status: F Source: [place] 4:45 PM [facility] REPOSITORY [facility] [address] [place] [address] OFFICE VISIT Date of Service: 12/30/17 MR#: [id number] Acct: [id number] Name: KENDRA BARNES Rep #: [id number] : 1990 Provider: Inder Manriquez MD Age/Sex: 27/F Location: [facility] Status: Signed Intake Intake Visit Reasons: total thyroid --results Chief Complaint: s/p total thyroid Socially Responsible Investment Adviser Required: No Is patient in pain?: No [...] 05/22/17 [History Confirmed 12/30/17] Hydrocodone Bitart/Apap 5-325 [[place] 5MG-325MG] 1 tab PO Q6H PRN PRN [...] 12/25/2017 Status: F Source: [place] 4:09 PM [facility] REPOSITORY [facility] [address] [place] [address] OFFICE VISIT Date of Service: 12/25/17 MR#: [id number] Acct: [id number] Name: KENDRA BARNES #: [id number] : 1990 Provider: Piper Raphael PA-C Age/Sex: 27/F Location: [facility] Status: Signed Intake Intake Visit Reasons: Thyroid SX [facility] 12/18 Chief Complaint: s/p total thyroid Socially Responsible Investment Adviser Required: No Is patient in pain?: No [...] 05/22/17 [History Confirmed 12/25/17] Hydrocodone Bitart/Apap 5-325 [[place] 5MG-325MG] 1 tab PO Q6H PRN PRN [...] 12/25/2017 Status: F Source: [place] 10:58 AM [facility] REPOSITORY TYPE CODE TESTS RESULT OUT OF RANGE REFERENCE UNITS LAB L501.2200 8.5-10.1 mg/dL Normal CA 9.1 Performed By: #### L501.2200 #### [facility] [address] [place], [address] DISCHARGE INSTRUCTION Observed: 12/24/2017 Status: F Source: [place] 12:53 PM [facility] REPOSITORY [facility] Medical Records Department [address] [place] [address] Instructions for Home/Discharge Instructions 12/18/17 0657 MR#: [id number] Acct: [id number] Name: KENDRA BARNES Rep #: [id number] : 1990 27 From: Inder Manriquez MD [...] mg PO QHS 05/22/17 Hydrocodone Bitart/Apap 5-325 [[place] 5MG-325MG] 1 tablet PO Q6H PRN PRN 2 Days #8 tablet 12/18/17 Levothyroxine [Synthroid] 150 mcg PO DAILY #90 tab 12/18/17 Calcitriol [Rocaltrol] 0.25 mcg PO BID #28 cap 12/19/17 Calcium Citrate 200 mg PO TID #42 tab 12/19/17 Cholecalciferol (VIT D3) [Vitamin D3] 2,000 unit PO BID #56 tab 12/19/17 The following prescriptions were given: Hydrocodone Bitart/Apap 5-325 [[place] 5MG-325MG] 1 tablet PO Q6H PRN PRN [...] Follow Up With: Inder Manriquez MD - [phone] When: Call to make an appointment to [...] 12/19/2017 Status: F Source: [place] 4:21 PM [facility] REPOSITORY TYPE CODE TESTS RESULT OUT OF RANGE REFERENCE UNITS LAB L501.2200 8.5-10.1 mg/dL Normal CA 8.7 Performed By: #### L501.2200 #### [place] [facility] [address] [place], [address] CALCIUM,TOTAL Collected: 12/19/2017 Status: F Source: [place] 6:32 AM [facility] REPOSITORY TYPE CODE TESTS RESULT OUT OF RANGE REFERENCE UNITS LAB L501.2200 8.5-10.1 mg/dL Low CA 8.0 Performed By: #### L501.2200 #### [facility] [address] [place], [address] OPERATIVE REPORT Observed: 12/19/2017 Status: F Source: [place] 5:42 AM [facility] REPOSITORY [facility] Medical Records Department [address] [place] [address] Operative Report 12/18/17 0952 MR#: [id number] Acct: [id number] Name: KENDRA BARNES Rep #: [id number] : 1990 27 From: Inder Manriquez MD PCP: Ty Wong MD Status: ADM KISHAN Y Location: [place] [address] Problem List (1) Multiple thyroid nodules Status: [...] Signed CALCIUM,TOTAL Collected: 12/18/2017 Status: F Source: [place] 3:08 PM [facility] REPOSITORY TYPE CODE TESTS RESULT OUT OF RANGE REFERENCE UNITS LAB L501.2200 8.5-10.1 mg/dL Normal CA 8.6 Performed By: #### L501.2200 #### [facility] [address] [place], [address] PARATHYROID Observed: 12/18/2017 Status: F Source: [place] 12:00 AM [facility] REPOSITORY Patient: KENDRA BARNES : 1990 (27/F) Acct Num: [id number] Phys: Inder Manriquez MD Unit Num: [id number] Loc: MS3 [id number] Specimen: [id number] Received: 12/18/17905 Spec Type: PARATHY TISSUES TISSUES: [...] summary is in compliance with [employer] [employer] (CAP) Cancer Protocols Checklist and [place] Joint Committee on Cancer (AJCC), Staging Manual, [...] in any of the three tumors. Immunohistochemistry (GD22-014) supports the above diagnosis. FROZEN SECTION DIAGNOSIS [...] in one cassette. / AM: TC:0 CPT: 44964, 94295 x4, 95963 x2 HEADER OPERATION: Thyroidectomy, total with central [...] on file> Performed By: #### PPARA #### [facility] [address] [place], [address] IMMUNOHISTOCHEMISTRY Observed: 12/18/2017 Status: F Source: [place] 12:00 AM [facility] REPOSITORY Patient: KENDRA BARNES : 1990 (27/) Acct Num: [id number] Phys: Mitra BARRIOS,Inder Unit Num: [id number] Loc: MS3 [id number] Specimen: [id number] Received: 12/23/17 - [facility] Spec Type: IMMUNO TISSUES TISSUES: C. Thyroid gland, NOS - 5, 16, 10 SPECIMEN INFORMATION: Tissue Source: C Total thyroid gland Clinical Info: Multiple thyroid nodules Specimen Number: [id number] CPT code: 87942, 43936 x10 METHODOLOGY: Deparaffinized sections of prefer/formalin-fixed tissue [...] developed and their performance characteristics determined by [facility]. They may not have been cleared or approved by the U.S. Food and Drug Administration. The FDA has determined that such clearance or approval is not necessary. INTERPRETATION: C. Total thyroid gland, thyroidectomy: Papillary thyroid carcinoma. AM:roney 12/26/17 Case has been reviewed in consultation with Dr. Mccallum who concurs with the above diagnosis. IDC:[facility] [address] [address] Signed Eric Bharath 12/26/17 <signature on file> Performed By: #### PIMM #### [facility] [address] [place] [address]. [place], [place], [address] CBC-COMPLETE BLOOD CNT Collected: 12/16/2017 Status: F Source: [place] NO DIFF 6:48 AM [facility] REPOSITORY TYPE CODE TESTS RESULT OUT [...] MPV 10.6 Performed By: #### L100.0500 #### [facility] [address] [facility], [address] BASIC METABOLIC Collected: 12/16/2017 Status: F Source: [place] PROFILE (BMP) 6:48 AM [facility] REPOSITORY TYPE CODE TESTS RESULT OUT [...] Performed By: #### L500.2500, L501.2300, L501.9520 #### [facility] [address] [place], [address] PHOSPHORUS Collected: 12/16/2017 Status: F Source: [place] 6:48 AM [facility] REPOSITORY TYPE CODE TESTS RESULT OUT OF RANGE REFERENCE UNITS LAB L501.2300 2.5-4.9 mg/dL Normal PHOS 3.2 Performed By: #### L500.2500, L501.2300, [id number] #### [facility] [address] [place], [address] THYROID STIM HORMONE Collected: 12/16/2017 Status: F Source: DANTE (TSH) 6:48 AM [facility] REPOSITORY TYPE CODE TESTS RESULT OUT OF RANGE REFERENCE UNITS LAB L501.9520 0.358-3.74 uIU/mL Normal TSH 1.36 Performed By: #### L500.2500, L501.2300, L501.9520 #### [facility] [address] [place], [address] SURGERY VISIT REPORT Observed: 12/02/2017 Status: F Source: DANTE 4:14 PM [facility] REPOSITORY [facility] [address] [place] [address] OFFICE VISIT Date of Service: 12/02/17 MR#: [id number] Acct: [id number] Name: KENDRA BARNES Rep #: [id number] : 1990 Provider: Inder Manriquez MD Age/Sex: 26/F Location: [facility] Status: Signed Intake Vital Signs12/02/17 Height 5 ft 8 in 12/02/17 Weight: 225 lb Intake Visit Reasons: discuss thyroid surgery Chief Complaint: thyroid nodules Socially Responsible Investment Adviser Required: No Is patient in pain?: No [...] no history of head neck radiation treatment. MR#:[id number]:[id number] Name: KENDRA BARNES [facility] #:[id number] : 1990 Provider:Inder Manriquez MD Age/Sex: 26/F Location:[facility] Status:Signed Intake Vital Signs 10/28/17 Height 5 ft 8 in 10/28/17 Weight: 220 lb 4 oz 10/28/17 Body Mass Index (BMI) 33.5 10/28/17 Blood Pressure 120/81 10/28/17 Blood Pressure Location Rt brachial 10/28/17 Blood Pressure Position Sitting 10/28/17 Respiratory Rate 20 10/28/17 Pulse Rate 99 Intake Visit Reasons: THYROID NODULE, U/S @ [facility] Chief Complaint: thyroid nodules Socially Responsible Investment Adviser Required: No Is patient in pain?: No [...] nodules. The patient is employed at the [employer]. Her primary care physician is Dr. Ty Wong. On a routine nursing physical examination Dr. Wong detected a thyroid nodule. On October 04, 2017 at the [facility] thyroid ultrasound was obtained. The right [...] blood clots Neuro Neurologic: No weakness Exam [facility] Other: Neck is supple, the right thyroid [...] VISIT REPORT Observed: 11/12/2017 Status: F Source: [place] 3:05 PM [facility] REPOSITORY [facility] [address] [place] [address] OFFICE VISIT Date of Service: 11/12/17 MR#: [id number] Acct: [id number] Name: KENDRA BARNES Rep #: [id number] : 1990 Provider: Inder Manriquez MD Age/Sex: 26/F Location: [facility] Status: Signed Intake Intake Visit Reasons: FNA--right [...] recent thyroid scan is as follows MR#: [id number]:[id number] Name: KENDRA BARNES [facility] #:[id number] : 1990F 26 From: Jhonatan Peterson DO PCP:Ty Wong MD Status:REG CLI Study:Thyroid Uptake Single or Mult Date of Exam:11/07/17 Exam#[id number] Ordering Dr: Ty Wong MD CLINICAL: 26-year-old [...] Service support , CC: Ty Wong MD Respiratory Technician: Signed Office Procedures Fine Needle Aspiration Provider [...] advanced into the lesion and a rapid ckrn-xod-ksqar motion performed. Specimen was smeared out on [...] for cytology. Inder Manriquez M.D., F.A.C.S. FNA 82480 Thyroid (Bilateral) Assessment AND Plan Problems 1. [...] Additional Codes FNA - Fine Needle Aspiration: 57138 Thyroid (29432) 11/12/17 1505 <Electronically signed by Inder Manriquez MD> Date Inder Manriquez MD Cosigner Signature: Date (if applicable) CC: Ty Wong MD ASPIRATION (SLIDES Observed: 11/12/2017 Status: F Source: [place] ONLY) 2:30 PM [facility] REPOSITORY Patient: KENDRA BARNES : 1990 () Acct Num: [id number] Phys: Mitra BARRIOS,Inder Unit Num: [id number] Loc: [facility] Specimen: [id number] Received: 11/13/17899 Spec [...] Submitted for staining. / 11/13/17 TC:5 CPT: 44450 x3 CYTOLOGY STUDY Slides are reviewed. DIAGNOSIS [...] on file> Performed By: #### PASPS #### [facility] [address] [place], [place], [address] THYROID UPTAKE Observed: 11/07/2017 Status: F Source: [place] SINGLE OR MULT 8:27 AM [facility] REPOSITORY [facility] [place] [address] [place] [address] Thyroid Uptake Single or Mult MR#: [id number] Acct: [id number] Name: KENDRA BARNES Rep #: [id number] : 1990 F 26 From: Jhonatan Peterson DO PCP: Ty Wong MD Status: REG CLI Study: Thyroid Uptake Single or Mult Date of Exam: 11/07/17 Exam# [id number] Ordering Dr: Ty Wong MD CLINICAL: 26-year-old [...] Service support , CC: Ty Wong MD Respiratory Technician: Signed SURGERY VISIT REPORT Observed: 10/28/2017 Status: F Source: [facility] 2:16 PM [facility] [address] [place] [address] OFFICE VISIT Date of Service: 10/28/17 MR#: [id number] Acct: [id number] Name: EKNDRA BARNES Rep #: [id number] : 1990 Provider: Inder Manriquez MD Age/Sex: 26/F Location: [facility] Status: Signed Intake Vital Signs10/28/17 Height 5 ft 8 in 10/28/17 Weight: 220 lb 4 oz 10/28/17 Body Mass Index (BMI) 33.5 Intake Visit Reasons: THYROID NODULE, U/S @ [facility] Chief Complaint: thyroid nodules Socially Responsible Investment Adviser Required: No Is patient in pain?: No [...] nodules. The patient is employed at the [employer]. Her primary care physician is Dr. Ty Wong. On a routine nursing physical examination Dr. Wong detected a thyroid nodule. On October 04, 2017 at the [facility] thyroid ultrasound was obtained. The right [...] MD THYROID Observed: 10/04/2017 Status: F Source: [place] 10:16 AM [facility] REPOSITORY [facility] Imaging Services [address] [place] [address] Thyroid MR#: [id number] Acct: [id number] Name: KENDRA BARNES Rep #: [id number] : 1990 F 26 From: Diego Becker MD PCP: Ty Wong MD Status: REG CLI Study: Thyroid Date of Exam: 10/04/17 Exam# [id number] Ordering Dr: Ty Wong MD STUDY: THYROID [...] Service support , CC: Ty Wong MD Respiratory Technician: Signed RUBELLA IGG Collected: 10/02/2017 Status: F Source: [place] 10:55 AM [facility] REPOSITORY TYPE CODE TESTS RESULT OUT OF RANGE REFERENCE UNITS LAB L509.4000 IU/mL Normal Rubella IgG 98.8 Result Comment: Antibody results Interpretation of Immune Status < 5 IU/ml Presumed Non-immune 5 - < 10 IU/ml Equivocal > or = 10 IU/ml Presumed Immune Performed By: #### L509.4000 #### [facility] [address] [place], [address] HEP B SURFACE Collected: 10/02/2017 Status: F Source: [place] ANTIBODIES 10:55 AM [facility] REPOSITORY TYPE CODE TESTS RESULT OUT [...] 10/02/2017 Status: F Source: [place] 10:55 AM [facility] REPOSITORY TYPE CODE TESTS RESULT OUT OF REFERENCE UNITS RANGE LAB L3100.3300 Immune >29.9 AU/mL Low RUBEOLA 78034 < 25.0 Result Comment: Negative <25.0 Equivocal 25.0 - 29.9 Positive >29.9 Presence of antibodies to Rubeola is presumptive evidence of immunity except when acute infection is suspected. Performed at: - [facility] [id number] Train Operations Manager: Wicho Hernandez PhD, Phone: [phone] Performed By: #### L3100.0528, L3100.3300, L3400.0000, L3400.1750 #### [facility] (refer to report for specific site) refer to report for address and phone number V-ZOSTER IGG Collected: 10/02/2017 Status: F Source: [place] (IMMUNITY) 10:55 AM [facility] REPOSITORY TYPE CODE TESTS RESULT OUT OF RANGE REFERENCE UNITS LAB L3400.0000 Immune >165 index Normal VZOST IgG 452 78469 Result Comment: Negative <135 Equivocal 135 - [...] 10/02/2017 Status: F Source: [place] 10:55 AM [facility] REPOSITORY TYPE CODE TESTS RESULT OUT [...] 09/17/2017 Status: F Source: [place] 1:35 PM [facility] REPOSITORY [facility] Cardiovascular Services [address] [place] [address] 12 Lead EKG 09/12/17 1358 MR#: [id number] Acct: [id number] Name: KENDRA BARNES Rep #: [id number] : 1990 26 From: Pa Sprague MD Attending Dr: Status: DEP ER Ordering Dr: Michael Celis MD Date: 09/12/17 Location: ED Sex: [...] ECG Confirmed by PA SPRAGUE MD ([id number]), greeting card editor BRIANNA DANIEL ([id number]) on 09/17/2017 1:35:46 PM Referred By: BENJAMIN Confirmed By:PA SPRAGUE MD 09/17/17 1335 Date Pa Sprague MD CC: MD Melida Celis; Ty Wong MD Signed EMERGENCY DEPARTMENT Observed: 09/16/2017 Status: F Source: [place] SUMMARY 3:51 PM [facility] REPOSITORY [facility] Medical Records Department [address] [place] [address] Emergency Department Summary 09/16/17 0919 MR#: [id number] Acct: [id number] Name: KENDRA BARNES Rep #: [id number] : 1990 26 From: Aquilino Flores MD [...] back pain This note was generated with Sweetie High dictation software. It may contain incorrect words, [...] your Primary Care Provider. Call [facility] ([phone]) or report to the closest Emergency Room. Call 911 if necessary. 09/16/171550 <Electronically signed by Aquilino Flores MD> Date Aquilino Flores MD Cosigner Signature (If Indicated): Date CC: Ty Wong MD DISCHARGE INSTRUCTION Observed: 09/16/2017 Status: F Source: [place] 3:51 PM [facility] REPOSITORY [facility] Medical Records Department [address] [place] [address] Discharge Instruction 09/16/17 1050 MR#: [id number] Acct: [id number] Name: KENDRA BARNES Maria Teresa Rep #: [id number] : 1990 26 From: Aquilino Flores MD PCP: Ty Wong MD Status: [facility] ER ED Disposition - Plan for ED [...] your Primary Care Provider. Call [facility] ([phone]) or report to the closest Emergency Room. Call 911 if necessary. 09/16/171550 <Electronically signed by Aquilino Flores MD> Date Aquilino Flores MD Cosigner Signature (If Indicated): Date CC: Ty Wong MD LUMBAR SPINE 2 OR 3 Observed: 09/16/2017 Status: F Source: [place] VIEWS 9:18 AM [facility] REPOSITORY [facility] Imaging Services [address] [place] [address] Lumbar Spine 2 or 3 Views MR#: [id number] Acct: [id number] Name: KENDRA BARNES Rep #: [id number] : 1990 F 26 From: Edd Jones MD PCP: Ty Wong MD Status: REG ER Study: Lumbar Spine 2 or 3 Views Date of Exam: 09/16/17 Exam# [id number] Ordering Dr: Aquilino Flores MD STUDY: X-RAY [...] Edd Jones MD at 10:15 EDT Tel [phone], Service support , CC: Aquilino Flores MD; Ty Wong MD Respiratory Technician: Signed EMERGENCY DEPARTMENT Observed: 09/12/2017 Status: F Source: [place] SUMMARY 4:05 PM [facility] REPOSITORY [facility] Medical Records Department [address] [place] [address] Emergency Department Summary 09/12/17 1357 MR#: [id number] Acct: [id number] Name: KENDRA BARNES Rep #: [id number] : 1990 26 From: Michael Celis MD [...] ethmoid sinusitis This note was generated with Sweetie High dictation software. It may contain incorrect words, [...] your Primary Care Provider. Call [facility] ([phone]) or report to the closest Emergency Room. Call 911 if necessary. 09/12/17 1605 <Electronically signed by Michael Celis MD> Date Michael Celis MD Cosigner Signature (If Indicated): Date CC: Ty Wong MD DISCHARGE INSTRUCTION Observed: 09/12/2017 Status: F Source: [place] 3:01 PM [facility] REPOSITORY [facility] Medical Records Department [address] [place] [address] Discharge Instruction 09/12/17 1456 MR#: [id number] Acct: [id number] Name: KENDRA BARNES Rep #: [id number] : 1990 26 From: Michael Celis MD [...] your Primary Care Provider. Call [facility] ([phone]) or report to the closest Emergency Room. Call 911 if necessary. 09/12/17 1501 <Electronically signed by Michael Celis MD> Date Michael Celis MD Cosigner Signature (If Indicated): Date CC: yT Wong MD BRAIN/HEAD WITHOUT Observed: 09/12/2017 Status: F Source: [place] CONTRAST 1:56 PM [facility] REPOSITORY [facility] Imaging Services [address] [place] [address] Brain/Head without Contrast MR#: [id number] Acct: [id number] Name: KENDRA BARNES Rep #: [id number] : 1990 F 26 From: Edd Jones MD PCP: Ty Wong MD Status: REG ER Study: Brain/Head without Contrast Date of Exam: 09/12/17 Exam# [id number] Ordering Dr: Michael Celis MD STUDY: CT [...] Edd Jones MD at 14:42 EDT Tel [phone], Service support , CC: MD Melida Celis; Ty Wong MD Respiratory Technician: Signed CHEST 1 VIEW Observed: 09/12/2017 Status: F Source: [place] (PORTABLE) 1:46 PM [facility] REPOSITORY [facility] Imaging Services [address] [place] [address] Chest 1 View (Portable) MR#: [id number] Acct: [id number] Name: KENDRA BARNES Rep #: [id number] : 1990 F 26 From: Edd Jones MD PCP: Marvin BARRIOS,Ty Status: PRE ER Study: Chest 1 View (Portable) Date of Exam: 09/12/17 Exam# [id number] Ordering Dr: Michael Celis MD STUDY: X-RAY [...] Edd Jones MD at 14:10 EDT Tel [phone], Service support , CC: MD Melida Celis; Ty Wong MD Respiratory Technician: Signed CBC W/DIFF, AUTOMATED Collected: 09/12/2017 Status: F Source: [place] 1:35 PM [facility] REPOSITORY TYPE CODE TESTS RESULT OUT [...] Lymph 2.15 Performed By: #### L100.0100 #### [facility] [address] [place], [place], [address] BASIC METABOLIC Collected: 09/12/2017 Status: F Source: [place] PROFILE (BMP) 1:35 PM [facility] REPOSITORY TYPE CODE TESTS RESULT OUT [...] GAP 9 Performed By: #### L500.2500 #### [facility] [address] [place], [place], [address] ,SERUM,HCG QUALI. Collected: Status: F Source: DANTE 09/12/2017 1:35 PM [facility] REPOSITORY TYPE CODE TESTS RESULT OUT OF REFERENCE UNITS RANGE LAB L700.7000 0-9 Nonpreg Negative Normal HCGSQUAL NEGATIVE LAB L700.6700 =>Qualitative mIU/mL Normal HCG Qual < 1 triggr Performed By: #### L700.6800 #### [facility] [address] [place], [address] ALLERGIES ALLERGIES DATE TYPE / CODE NAME / CODE REACTION SEVERITY SOURCE 04/17/2018 Drug Penicillins/ Hives Unknown [facility] Allergy/4160 [id number]( Hospital [address](SNOMED XNORM) Repository CT) 04/17/2018 Drug hydroxyzine/ makes me angry Unknown [facility] Allergy/4160 [id number]([facility] [address](SNOMED XNORM) Repository CT) ENCOUNTERS ENCOUNTERS ADMIT/DISCHARGE ACCOUNT ADMITTING ENCOUNTER LOCATION SOURCE NUMBER CLASS 05/07/2018 [id number] Ambulatory [place] Dante 8 [facility] ing:BHIOP Repository 04/23/2018 [id number] Ambulatory [place] Dante 4 [facility] ing:NM Repository 04/15/2018/ [id number] Ambulatory [place] 8 1 [facility] ing:BHIOP Repository 03/12/2018/ [id number] Ambulatory BMSBuilding:B [place] 8 7 [facility] Repository 03/12/2018 [id number] Ambulatory [place] 2 [facility] ing:LAB.FUTUR Repository E 02/26/2018 [id number] Ambulatory [place] Dante 5 [facility] ing:NM Repository 02/25/2018 [id number] Ambulatory Dante Dante 7 [facility] ing:LAB.FUTUR Repository E 02/25/2018 [id number] Ambulatory [place] Dante 1 [facility] ing:LAB.FUTUR Repository E 02/24/2018 [id number] Ambulatory [place] Dante 9 [facility] ing:LAB Repository 01/31/2018 [id number] Ambulatory [place] 6 [facility] ing:LAB Repository 01/20/2018/ [id number] Ambulatory BMSBuilding:B [place] 8 7 [facility] Repository 01/14/2018/ [id number] Ambulatory BMSBuilding:B [place] 8 4 [facility] Repository 01/02/2018 [id number] Ambulatory [place] 3 [facility]PAVLAB Repository 12/30/2017/ [id number] Ambulatory BMSBuilding:B [place] 8 4 [facility] Repository 12/25/2017 [id number] Ambulatory [place] 9 [facility] ing:PAVLAB Repository 12/25/2017/ [id number] Ambulatory BMSBuilding:B [place] 8 9 [facility] Repository 12/18/2017/ [id number] AbnerInder vu Ambulatory [place] 8 5 [facility] ing:AL5Abuz: Repository UL318Aoy: 1 12/18/2017/ [id number] Ambulatory BMSBuilding:B [place] 8 3 MS.CF.[facility] Repository 12/02/2017/ [id number] Ambulatory BMSBuilding:B [place] 8 5 [facility] Repository 11/13/2017 [id number] Ambulatory [facility] Dante 6 [facility] ing:[facility]SPEC Repository 11/12/2017/ [id number] Ambulatory BMSBuilding:B [place] 8 2 [facility] Repository 11/07/2017 [id number] Ambulatory [place] [facility] 4 [facility] ing:NM Repository 10/28/2017/ [id number] Ambulatory BMSBuilding:B [place] 8 9 [facility] Repository 10/04/2017 [id number] [facility] [place] [facility] Repository 10/02/2017 [id number] Ambulatory [place] [facility] 6 [facility] ing:MFPLAB Repository 09/16/2017/ [id number] Emergency [place] 8 4 [facility] ing:ED Repository 09/12/2017/ [id number] Emergency [place] 8 2 [facility] ing:ED Repository PAYERS PAYERS ENCOUNTER GUARANTOR PAYER SUBSCRIBER SOURCE 05/07/2018 KENDRA R Primary Insurance:[facility] KENDRA Morel Dante [id number] [facility] [place] [facility] [place] Number: Repository [address]Rkc: (473) [id number] [phone] (HP) Date:5915-70-42YP [address] [address]RMJVDULRK, [place] [address]YE: CHECK WEBSITE 05/07/2018 Secondary NOT GIVENUNK Dante Insurance:SELF PAY [facility] Number: Effective Repository Date:2018-05-06 04/23/2018 KENDRA R Primary Insurance:[facility] KENDRA Morel Dante [id number] [facility] [place]: [facility] 5230[place]36[place] Number: Repository [address]Rzu: (166) [id number] [phone] (HP) Date:0690-46-04OA [address] [address]EMGNGIHCH, [place] [address]WN: CHECK WEBSITE 04/23/2018 Secondary KENDRA R Dante Insurance:[employer] [place]: [facility] Number: [id number] [id number] Repository Date:2018-02-28[address]ATTN: [place] [address]TL: 04/23/2018 Tertiary NOT GIVENUNK [place] Insurance:SELF PAY [facility] Number: Effective Repository Date:2018-02-28 04/15/2018 KENDRA R Primary Insurance:[facility] KENDRA [place] [id number] E [facility] [place]: [facility] 4966-68-52LMAPitt[place], [place] Number: Repository [address]Swe: (424) [id number] [phone] (HP) Date:4781-69-29VW [address] [address]EXEPNJDUD, [place] [address]UT: CHECK WEBSITE 04/15/2018 Secondary NOT GIVENUNK Dante Insurance:SELF PAY [facility] Number: Effective Repository Date:2018-04-14 03/12/2018 KENDRA R Primary Insurance:[facility] KENDRA Morel [place] [id number] E [facility] [place]: [facility] 9143-36-68FZMPitt[place], [place] Number: Repository [address]Upf: 330 [id number] [phone] () Date:7900-74-35EM [address] [address]XCZOCXRJW, [place] [address]XB: CHECK WEBSITE 03/12/2018 Secondary NOT GIVENUNK Dante Insurance:SELF PAY [facility] Number: Effective Repository Date:2018-03-11 03/12/2018 KENDRA R Primary Insurance:[facility] KENDRA Morel Dante [id number] E [facility] [place]: [facility] 2095-92-[place]OMYPitt[place], [place] Number: Repository [address]Plf: 330 [id number] [phone] () Date:4752-03-90GY [address] [address]DJNIEEFQU, [place] [address]KF: CHECK WEBSITE 03/12/2018 Secondary NOT GIVENUNK Dante Insurance:SELF PAY [facility] Number: Effective Repository Date:2018-03-12 02/26/2018 KENDRA R Primary Insurance:[facility] KENDRA [place] [id number] E [facility] [place]OB: [facility] 7681-48-27GNRP[place], [place] Number: Repository [address]Dcf: 330 [id number] [phone] () Date:0071-10-13OS [address] [address]OXJFKMCAD, [place] [address]JC: CHECK WEBSITE 02/26/2018 Secondary NOT GIVENUNK [place] Insurance:SELF PAY [facility] Number: Effective Repository Date:2018-02-12 02/25/2018 KENDRA R Primary Insurance:[facility] KENDRA Morel [place] [id number] E [facility] [place]OB: [facility] 1524-43-95MBYPitt[place], [place] Number: Repository [address]Trb: 330 [id number] [phone] () Date:2478-29-84UE [address] [address]IASUJZRXY, [place] [address]CA: CHECK WEBSITE 02/25/2018 Secondary NOT GIVENUNK Dante Insurance:SELF PAY [facility] Number: Effective Repository Date:2018-02-25 02/25/2018 KENDRA R Primary Insurance:[facility] KENDRA R [place] [id number] E [facility]: [facility] [id number], [place] Number: Repository [address]Pjm: 330 [id number] [phone] () Date:6937-38-59KP [address] [address]AFCCNXGBB, [place] [address]NL: CHECK WEBSITE 02/25/2018 Secondary NOT GIVENUNK [place] Insurance:SELF PAY [facility] Number: Effective Repository Date:2018-02-25 02/24/2018 KENDRA R Primary Insurance:[facility] KENDRA R [place] [id number] E [facility] [place]OB: [facility] 6987-47-32EMCPitt[place], [place] Number: Repository [address]Deu: 330 [id number] [phone] () Date:5336-84-30TK [address] [address]KGSXPHQDM, [place] [address]LS: CHECK WEBSITE 02/24/2018 Secondary NOT GIVENUNK Dante Insurance:SELF PAY [facility] Number: Effective Repository Date:2018-02-24 01/31/2018 KENDRA R Primary NOT GIVENUNK [place] [id number] E Insurance:SELF PAY [place], [place] Number: Effective Repository [id number]: 330) Date:2018-01-31 [phone] () 01/20/2018 KENDRA R Primary Insurance:[facility] KENDRA R [place] [id number] E [facility] TATUMDOB: [facility] [id number] [place] Number: Repository [address]Oah: 330 [id number] [phone] (HP) Date:6773-28-26UG [address] [address]PUFJAJTSB, [place] [address]RE: CHECK WEBSITE 01/20/2018 Secondary NOT GIVENUNK [place] Insurance:SELF PAY [facility] Number: Effective Repository Date:2018-01-20 01/14/2018 KENDRA R Primary Insurance:[facility] KENDRA R [place] [id number] E [facility] [place]: [facility] 2172-19-71REAPitts[place], [place] Number: Repository [address]Uuq: 330 [id number] [phone] (HP) Date:1455-25-76DE [address] [address]FDPHKDJXO, [place] [address]KV: CHECK WEBSITE 01/14/2018 Secondary NOT GIVENUNK [place] Insurance:SELF PAY [facility] Number: Effective Repository Date:2018-01-14 01/02/2018 KENDRA R Primary Insurance:[facility] KENDRA R Dante [id number] E [facility] [place]: [facility] [id number], [place] Number: Repository [address]Gzw: 330 [id number] [phone] () Date:1067-88-70FC [address] [address]XIBWYWAZT, [place] [address]ZB: CHECK WEBSITE 01/02/2018 Secondary NOT GIVENUNK [place] Insurance:SELF PAY [facility] Number: Effective Repository Date:2018-01-02 12/30/2017 KENDRA R Primary Insurance:[facility] KENDRA R Dante [id number] E [facility] [place]: [facility] 5471-15-50HVVPittsfield, [place] Number: Repository [address]Spy: 330 [id number] [phone] (HP) Date:2288-75-71ZZ [address] [address]GLKYGUCCT, [place] [address]AN: CHECK WEBSITE 12/30/2017 Secondary NOT GIVENUNK Dante Insurance:SELF PAY [facility] Number: Effective Repository Date:2017-12-30 12/25/2017 KENDRA R Primary Insurance:[facility] KENDRA Morel Dante [id number] E [facility] [place]: [facility] 4196-32-07ISXPittsfield, [place] Number: Repository [address]Xhu: 330 [id number] [phone] (HP) Date:4746-04-87WQ [address] [address]CCQWODBLD, [place] [address]GN: CHECK WEBSITE 12/25/2017 Secondary NOT GIVENUNK Dante Insurance:SELF PAY [facility] Number: Effective Repository Date:2017-12-25 12/25/2017 KENDRA R Primary Insurance:[facility] KENDRA R [place] [id number] [facility] [place] [facility] [place] Number: Repository [address]Qag: 330 [id number] [phone]) Date:8602-80-66YF [address] [address]HOJDLSUUC, [place] [address]LH: CHECK WEBSITE 12/25/2017 Secondary NOT GIVENUNK [place] Insurance:SELF PAY [facility] Number: Effective Repository Date:2017-12-25 12/18/2017 KENDRA R Primary Insurance:[facility] KENDRA [place]l [place] [id number] [address] [facility] [place] [facility] [id number] Number: Repository [id number]: 330 [id number] [phone]) Date:0563-15-78VC [address] [address]WVINNNROB, [place] [address]GC: CHECK WEBSITE 12/18/2017 Secondary NOT GIVENUNK [place] Insurance:SELF PAY [facility] Number: Effective Repository Date:2017-11-21 12/18/2017 KENDRA R Primary Insurance:[facility] KENDRA Morel [place] [id number] [address] [facility] [place] [facility] [id number] Number: Repository [address]Fpt: 330 [id number] [phone] (HP) Date:6800-84-96IK [address] [address]XRIKKVFPT, [place] [address]WH: CHECK WEBSITE 12/18/2017 Secondary NOT GIVENUNK Dante Insurance:SELF PAY [facility] Number: Effective Repository Date:2017-12-18 12/02/2017 KENDRA R Primary Insurance:[facility] KENDRA [place]l [place] [id number] [address] [facility] [place] [facility] [id number] Number: Repository [id number]: 330 [id number] [phone] () Date:5155-55-56UA [address] [address]DYSJTATAL, [place] [address]RT: CHECK WEBSITE 12/02/2017 Secondary NOT GIVENUNK [place] Insurance:SELF PAY [facility] Number: Effective Repository Date:2017-11-26 11/13/2017 Kendra R Primary Insurance:[facility] Kendra Morel [place] [id number] [address] [facility] [facility] [place]DOB: [facility] [id number] Number: Repository [id number]: 330 [id number] [phone] () Date:9805-82-78VN [address] [address]FWIZFTVRZ, [place] [address]ML: CHECK WEBSITE 11/13/2017 Secondary NOT GIVENUNK [place] Insurance:SELF PAY [facility] Number: Effective Repository Date:2017-11-13 11/12/2017 Kendra R Primary Insurance:[facility] Kendra Morel [place] [id number] [address] [facility] [place]DOB: [facility] [id number] Number: Repository [address]Hts: 330 [id number] [phone] () Date:5517-71-96HW [address] [address]UFKQHDIWY, [place] [address]HV: CHECK WEBSITE 11/12/2017 Secondary NOT GIVENUNK [place] Insurance:SELF PAY [facility] Number: Effective Repository Date:2017-11-12 11/07/2017 Kendra R Primary Insurance:[facility] Kendra Morel [place] [id number] [address] [facility] [place]DOB: [facility] 6348-07-54JKY[place] Number: Repository [address]Ysf: 330 [id number] [phone] (HP) Date:6013-33-10WR [address] [address]QJIFRRAFH, [place] [address]XC: CHECK WEBSITE 11/07/2017 Secondary NOT GIVENUNK [place] Insurance:SELF PAY [facility] Number: Effective Repository Date:2017-10-15 10/28/2017 Kendra R Primary Insurance:[facility] Kendra R [place] [id number] [address] [facility] [place]DOB: [facility] [id number] Number: Repository [id number]: 330 [id number] [phone]) Date:9421-86-41SQ [address] [address]XLRGNQDEC, [place] [address]PA: CHECK WEBSITE 10/28/2017 Secondary NOT GIVENUNK [place] Insurance:SELF PAY [facility] Number: Effective Repository Date:2017-10-28 10/04/2017 Kendra R Primary Insurance:[facility] Kendra R [place] [id number] [address] [facility] MiltonDOB: [facility] [id number], [place] Number: Repository [address]Yjr: 330 [id number] [phone]) Date:4011-69-92ME [address] [address]NCWNPUVSM, [place] [address]PS: CHECK WEBSITE 10/04/2017 Secondary NOT GIVENUNK [place] Insurance:SELF PAY [facility] Number: Effective Repository Date:2017-10-02 10/02/2017 Kendra R Primary Insurance:[facility] Kendra R [place] [id number] [address] [facility] [place]DOB: [facility] 9726-96-40UHUKanona, [place] Number: Repository [address]Dka: 330 [id number] [phone]) Date:3958-97-72CN [address] [address]HUVTYHMJH, [place] [address]PB: CHECK WEBSITE 10/02/2017 Secondary NOT GIVENUNK [place] Insurance:SELF PAY [facility] Number: Effective Repository Date:2017-10-02 09/16/2017 Kendra Morel Primary Insurance:[facility] Kendra Morel [place] [id number] [address] [facility] 6204-86-82PZPKanona, [place] Number: Repository [address]Ckh: 330 [id number] [phone] () Date:4966-06-80NH [address] [address]TLZXUEJWX, [place] [address]YZ: CHECK WEBSITE 09/16/2017 Secondary NOT GIVENUNK [place] Insurance:SELF PAY [facility] Number: Effective Repository Date:2017-09-16 09/12/2017 Kendra Morel Primary Insurance:[facility] Kendra Morel [place] [id number] [facility]: [facility] [id number], [place] Number: Repository [address]Acg: 330 [id number] [phone] () Date:9787-72-37QB [address] [address]TLJNFWDVP, [place] [address]AT: CHECK WEBSITE 09/12/2017 Secondary NOT GIVENUNK [place] Insurance:SELF PAY [facility] Number: Effective Repository Date:2017-09-12
== END ==
PROVIDERS: Family Provider Family Medicine; PCP Family Medicine; Referring Provider Internal Medicine Endocrinology, Diabetes & Metabolism
DX: C73 Malignant neoplasm of thyroid gland (principal); E04.2 Nontoxic multinodular goiter
CPT/HCPCS: 36415; 79005; 80053; 82330; 83735; 83970; 84432; 84439; 84443; 84481; 85025; 86376; 86800; A9517

== ENCOUNTER 2018-05-07 09:00 | Outpatient (RCR) | payer OTHER, SELFPAY ==
--- NOTE | 2018-05-05 10:20 | BH.SGPN.GN ---
Behaviors/Verbalizations/Mental Status: [] Client alert and oriented, casually dress, hygiene good. Eye contact fair. Motor activity appropriate. Speech within normal limits. Affect constricted- holding back tears and then became tearful, mood depressed, anxious. Thoughts linear, logical, no signs of hallucinations or delusions. Client Response/Progress/Benefit: []Client responded well to session, tearful, but actively participating when encouraged. Client connected with the quote sharing, ?I can manage other people's barriers better than my own.? Client participated in the activity where client described her current and desired mental health realities. Client?s current reality was ?I?m disconnected, numb, and not present.? Client became tearful and was observably struggling with opening up about her struggles. Client was praised by the group for being vulnerable, and client stated being appreciative. Client?s realistic desired reality was to focus on her emotions rather than suppress them and connecting with her supports and children. Client?s shared she is unsure about all of her barriers keeping client from her desired reality, but she acknowledged holding in emotions and putting others? needs first as barriers. Client?s identified ?participating here today? as a positive helping client in her current reality. Client appeared to benefit from gaining awareness of the barriers keeping client from improved mental wellness. Client to continue IOP to prevent decompensation and reduce depressive symptoms.
[2018-05-06 01:31] VITALS: PULSE 82
--- NOTE | 2018-05-07 09:00 | BH.SGPN.GN ---
Behaviors/Verbalizations/Mental Status: [] Eye contact is good. Motor activity is appropriate. Appearance is casual. Speech is Appropriate. Mood is depressed. Affect is flat. Thoughts are linear and logical. No evidence of psychosis. Reviewed daily check in sheet and no reports of suicidal ideations or intent. Client Response/Progress/Benefit: [] Pt was an active participant in group discussion. Emotion for today is content. Shared with the group that her New Years went well and she spend time with family. Reports that recently her brain has been shut off. Reports difficult time processing information and feeling emotion. Reports being numb. She is unsure if this is helping her MH symptoms. She reports that she has to go back to work tomorrow however is not as anxious as she was previously. She is expecting that her morning tomorrow will be horrible Talked a great deal about group topic today which was countering negative thoughts and unlearning negative thoughts. Benefited from encouragement, support, and feedback from the group. Limited progress per pt report. Will continue in IOP to prevent decompensation, improve daily functioning, and decrease depressive symptoms. Narrative Note: []
--- NOTE | 2018-05-07 10:10 | BH.SGPN.GN ---
Behaviors/Verbalizations/Mental Status: [Client maintained good eye contact. Casually dressed. Appropriate grooming/hygiene. Motor activity WNL. Client speech was a normal rate and tone. Mood euthymic, affect congruent with mood, positive, thoughts linear and logical, no evidence of delusions or hallucinations] Client Response/Progress/Benefit: [Client responded well to session, did well to provide input and making jokes/encouraging others throughout. She worked with the group to discuss the importance of change and benefitted from discussing the role change can play in mental health sx management as well as how not making changes can also impact mental health. Client provided reflection that we ?can?t move on if we?re stuck on previous decisions? and discussed struggling with ruminating about the past as if she has any power to change it. Client shared currently wanting to promote healthy change by ?having more patience when dealing with emotions?, ?creating more manageable goals?, and ?saying positive affirmations 3x a day?. Client did well to identify potential barriers preventing her from making healthy changes and indicated that ?not communicating?, ?negative self-talk?, and ?self-doubt? have impacted ability to implement change. Recommended continued IOP to promote more positive self-talk and application of skills learned, as well as to prevent decompensating.] Narrative Note: []
--- NOTE | 2018-05-07 11:20 | BH.SGPN.GN ---
Behaviors/Verbalizations/Mental Status: []Client alert and oriented, casually dressed, hygiene good. Eye contact good. Motor activity appropriate. Speech within normal limits. Affect congruent to mood, mood euthymic, anxious. Thoughts linear, logical, no signs of hallucinations or delusions. Client Response/Progress/Benefit: []Client responded well to session, active participant. Client identified a change she would like to make that would improve her mental wellbeing. Client?s change was to ?try to come up with 3 positive affirmations a day.? Client?s barriers to making this change were not believing in herself, not being able to move on from the past, self-doubt, and valuing others? opinions more than her own. Client created strategies to overcome these barriers such as making a list of good things that are factual, trying to find the good in the bad, and letting other people?s comments roll off her by challenging thoughts. Client appeared to benefit from creating a goal that will better her mental health. Progress noted in client?s increased verbalization of emotions and self-awareness. However, client continues to minimize her symptoms and reports use of negative self-talk. Client can benefit from ongoing IOP to increase mood stability and combat distortions.
--- NOTE | 2018-05-09 14:34 | PCM.HP.BLA ---
History and Physical Chief Complaint: The patient is a 27-year-old female who was referred by her PCP. She is being admitted to the intensive outpatient mental health treatment program at [facility]. She has a history of depression, anxiety and borderline personality disorder features. She has marital problems and serious health problems. History of Present Illness: The patient's symptoms worsened after she developed thyroid cancer in December 2017. She had surgery and then radio active iodine treatment in April 2018. Her illness worsened her symptoms of depression. She said that she has had depression ever since about the eighth grade. She said that depression usually last for 1 or 2 days. However, her depression became much worse in March 2018 and then gradually improved with the help of her current medications. Her depression is currently stable. She does report chronic sleep problems. She is not suicidal. Patient also reports a history of problems with anxiety and problems coping with stress. She becomes easily overwhelmed. Recent stresses have included her cancer diagnosis, marital problems and overwork. She was recently both working and in school. The patient also has borderline personality features. She used to have lots of ups and downs of her mood, now improved on her current medications. She has a history of of anger problems going back to middle school. She used to have frequent outbursts during which she yelled, screamed and threw things. She has had very angry outbursts directed toward her , and her anger is usually in the context of relationship problems. She feels empty much of the time. She reports a history of abandonment fears. She has had some recent identity issues and worries about the future. She has a history of impulsive cutting during high school and middle school. She also has a history of substance abuse. Past Psychiatric History: No psychiatric admissions. The patient reports a suicide attempt in middle school in the context of family problems. She has a history of cutting herself in middle school and high school. She previously saw a psychiatrist about 8 years ago. More recently, her medications have been managed by her primary care doctor. She was in counseling in the past. She and her were previously in marital counseling. She has been tried on several psychiatric medications in the past including Effexor, Prozac and hydroxyzine. Current Psychiatric Medications: Lamictal 100 mg twice daily, Wellbutrin XL 150 mg twice daily Medical History: The patient is overweight. She was diagnosed with thyroid cancer in December 2017. She underwent surgery and has had radioactive iodine treatment. Allergies: penicillin, hydroxyzine Family Psychiatric History: [The patient said that there are mental health problems on her mother's side of the family. Relatives have had anger problems and anxiety symptoms. There is also substance abuse in her mother and also other relatives. Personal/Social History: The patient's parents when she was 1-1/2 years old. She was initially cared for by her mother but then apparently CPS became involved. Custody was given over to her father but then he gave over custody to her grandparents. She reports a good relationship with her father currently but has a poor relationship with her mother. He has numerous half siblings. Educational history: The patient is currently enrolled in nursing classes through [employer]. 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 She works 312-hour days and also goes to school 2 days a week. Mental history the patient has been to her first for 6 years. They have had a very laurie relationship. They went through marital counseling about 2 years ago. The relationship continues to be laurie and they have arguments and fights at least once a week. They often conflicts about how that they are raising their children. Is not been comfortable talking with her about her cancer diagnosis, and he has apparently not asked much about it. They have 2 children who are 8 and 5 years old. Substance abuse history: Patient drinks alcohol on occasion. She said that she previously had an addiction to pain pills after her daughter was born. She was addicted to pain pills for about 5years. She took pain pills fairly than prescribed and once bought them off the street. He obtained them from different doctors. She said that she was using pain pills to help her cope with her moodiness. She denied other drug use. Review of Systems: Psychiatry: depression, anxiety and mood swings as per HPI. He is not suicidal. There is no psychosis. She is cognitively intact. Constitutional she is overweight and her weight has been steady. Her energy level is good. Endocrine recovering from thyroid cancer. All other systems reviewed and are negative. Examination: The patient presents as a calm, cooperative woman of overweight build who is appropriately groomed. She demonstrates good social skills. Vital signs height 5 foot 8 inches, weight 234 pounds, respirations 16. Musculoskeletal: No muscle weakness or joint pain. Her speech is fluent and spontaneous. Her language is intact. Her judgment and insight are intact. She is alert and oriented x3. Her affect is cordial and appropriate. Her recent and remote memory are intact on examination. She demonstrates normal attention span and concentration. She has normal thought processes and abstract reasoning. Her associations are intact. There are no hallucinations or delusions and she is not suicidal. She demonstrates normal age appropriate fund of knowledge. Mental Status Examination: The patient presents as a calm, cooperative woman of overweight build who is appropriately groomed. Thoughts are logical and coherent. Her depression is currently well managed. No manic symptoms. She is not suicidal. There is no psychosis. She is cognitively intact. 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 Her depression has now improved with medications. She also has a history of chronic problems with anxiety, becoming easily overwhelmed. She has difficulty coping with stress. She also has features of borderline personality disorder. She has significant marital problems. Has a history of addiction to pain pills. 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 Patient will continue participation in the intensive outpatient program. See her again within the next few weeks.
--- NOTE | 2018-05-09 15:04 | HP.PCM_ITS ---
History and Physical Chief Complaint: The patient is a 27-year-old female who was referred by her PCP. She is being admitted to the intensive outpatient mental health treatment program at [facility]. She has a history of depression, anxiety and borderline personality disorder features. She has marital problems and serious health problems. History of Present Illness: The patient's symptoms worsened after she developed thyroid cancer in December 2017. She had surgery and then radio active iodine treatment in April 2018. Her illness worsened her symptoms of depression. She said that she has had depression ever since about the eighth grade. She said that depression usually last for 1 or 2 days. However, her depression became much worse in March 2018 and then gradually improved with the help of her current medications. Her depression is currently stable. She does report chronic sleep problems. She is not suicidal. Patient also reports a history of problems with anxiety and problems coping with stress. She becomes easily overwhelmed. Recent stresses have included her cancer diagnosis, marital problems and overwork. She was recently both working and in school. The patient also has borderline personality features. She used to have lots of ups and downs of her mood, now improved on her current medications. She has a history of of anger problems going back to middle school. She used to have frequent outbursts during which she yelled, screamed and threw things. She has had very angry outbursts directed toward her , and her anger is usually in the context of relationship problems. She feels empty much of the time. She reports a history of abandonment fears. She has had some recent identity issues and worries about the future. She has a history of impulsive cutting during high school and middle school. She also has a history of substance abuse. Past Psychiatric History: No psychiatric admissions. The patient reports a suicide attempt in middle school in the context of family problems. She has a history of cutting herself in middle school and high school. She previously saw a psychiatrist about 8 years ago. More recently, her medications have been managed by her primary care doctor. She was in counseling in the past. She and her were previously in marital counseling. She has been tried on several psychiatric medications in the past including Effexor, Prozac and hydroxyzine. Current Psychiatric Medications: Lamictal 100 mg twice daily, Wellbutrin XL 150 mg twice daily Medical History: The patient is overweight. She was diagnosed with thyroid cancer in December 2017. She underwent surgery and has had radioactive iodine treatment. Allergies: penicillin, hydroxyzine Family Psychiatric History: [The patient said that there are mental health problems on her mother's side of the family. Relatives have had anger problems and anxiety symptoms. There is also substance abuse in her mother and also other relatives. Personal/Social History: The patient's parents when she was 1-1/2 years old. She was initially cared for by her mother but then apparently CPS became involved. Custody was given over to her father but then he gave over custody to her grandparents. She reports a good relationship with her father currently but has a poor relationship with her mother. He has numerous half siblings. Educational history: The patient is currently enrolled in nursing classes through [employer]. 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 She works 312-hour days and also goes to school 2 days a week. Mental history the patient has been to her first for 6 years. They have had a very laurie relationship. They went through marital counseling about 2 years ago. The relationship continues to be laurie and they have arguments and fights at least once a week. They often conflicts about how that they are raising their children. Is not been comfortable talking with her about her cancer diagnosis, and he has apparently not asked much about it. They have 2 children who are 8 and 5 years old. Substance abuse history: Patient drinks alcohol on occasion. She said that she previously had an addiction to pain pills after her daughter was born. She was addicted to pain pills for about 5years. She took pain pills fairly than prescribed and once bought them off the street. He obtained them from different doctors. She said that she was using pain pills to help her cope with her moodiness. She denied other drug use. Review of Systems: Psychiatry: depression, anxiety and mood swings as per HPI. He is not suicidal. There is no psychosis. She is cognitively intact. Constitutional she is overweight and her weight has been steady. Her energy level is good. Endocrine recovering from thyroid cancer. All other systems reviewed and are negative. Examination: The patient presents as a calm, cooperative woman of overweight build who is appropriately groomed. She demonstrates good social skills. Vital signs height 5 foot 8 inches, weight 234 pounds, respirations 16. Musculoskeletal: No muscle weakness or joint pain. Her speech is fluent and spontaneous. Her language is intact. Her judgment and insight are intact. She is alert and oriented x3. Her affect is cordial and appropriate. Her recent and remote memory are intact on examination. She demonstrates normal attention span and concentration. She has normal thought processes and abstract reasoning. Her associations are intact. There are no hallucinations or delusions and she is not suicidal. She demonstrates normal age appropriate fund of knowledge. Mental Status Examination: The patient presents as a calm, cooperative woman of overweight build who is appropriately groomed. Thoughts are logical and coherent. Her depression is currently well managed. No manic symptoms. She is not suicidal. There is no psychosis. She is cognitively intact. 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 Her depression has now improved with medications. She also has a history of chronic problems with anxiety, becoming easily overwhelmed. She has difficulty coping with stress. She also has features of borderline personality disorder. She has significant marital problems. Has a history of addiction to pain pills. Diagnoses: [place] I: Major depression, single episode, in partial remission (F 32.4); chronic adjustment disorder with anxiety; relationship distress with spouse; history of opiate addiction [place] II:Borderline Personality traits [place] III: History of thyroid cancer; overweight [] Plan: I am continuing treatment with Lamictal and Wellbutrin at the current doses. Patient will continue participation in the intensive outpatient program. See her again within the next few weeks.
--- NOTE | 2018-05-09 15:06 | BH.DR.ITP ---
Initial Treatment Plan - Patient Information Visit Information: ADMISSION DATE: 04/15/18 EXPECTED LOS: 4-6 weeks Diagnoses:: Major depression, single episode, in partial remission - Problems/Symptoms Problem #1:: depression Symptom:: sad mood, anhedonia, poor concentration Problem #2:: anxiety Symptom:: lacks coping skills
--- NOTE | 2018-05-13 09:00 | BH.SGPN.GN ---
Behaviors/Verbalizations/Mental Status: []Client alert and oriented, neatly dressed and groomed. Eye contact fair. Motor activity appropriate. Speech within normal limits. Affect full, mood euthymic. Thoughts linear, logical, no signs of hallucinations or delusions. Reviewed client?s symptom tracker no risk in suicidal ideation, plan, and intent as of 05/13/18. Client Response/Progress/Benefit: []Client responded well to session, providing supportive statements to peers. Client reports feeling ?content? today as she has had some recent positives at work. Client identified recent mental health positives to be ?I?ve have five good work days in a row? and client is continuing to use positive affirmations. Client reported there was one day where she became tearful, but she was able to ?bounce back.? Client?s current stressor is ?I?m continuing to taylor the side effects? of her chemotherapy. Client stated she has lost the use of some of her taste buds ?which sucks.? Client minimized her stressor by saying ?it?s fine thought? and laughing. Client reported she has been trying to think more positively and communicate with her family which is progress. Client appeared to benefit from connecting with peers and reflecting on positive ways she is supporting her mental health. Progress shown in client?s use of positive affirmations, but she continues to struggle with holding in emotions and negative thinking.
--- NOTE | 2018-05-13 10:05 | BH.SGPN.GN ---
Behaviors/Verbalizations/Mental Status: [Client eye contact good, grooming and attire well kempt, motor activity appropriate, speech normal rate and tone, mood euthymic, congruent affect, thoughts linear and intact, no evidence of delusions or hallucinations] Client Response/Progress/Benefit: [Client receptive of session and did well to actively listen during discussion and was receptive of feedback, mostly passive participant throughout. Client connected with fellow participants input regarding quote AEB nodding throughout. Client appeared to benefit from group discussion regarding what barriers impact ability to ?choose a different path? and make healthier choices. Noted that it is difficult to recognize when barriers are beginning to impact mental health sx before they become severe. She reflected on ?Chapters of My Life? poem and indicated that she could relate to chapter3 most. Progress made in client ability to connect discussion to her own life and begin engaging in IOP tx. Recommended continued tx to promote change behaviors, increase emotion regulation, and prevent decompensating.] Narrative Note: []
--- NOTE | 2018-05-13 11:20 | BH.SGPN.GN ---
Behaviors/Verbalizations/Mental Status: [] Eye contact is good. Motor activity is appropriate. Appearance is casual. Speech is Appropriate. Mood is depressed. Affect is flat. Thoughts are linear and logical. No evidence of psychosis Client Response/Progress/Benefit: [] Pt was an active participant in group discussion and activity. Pt reports that she learned from group today It is OK to go back and re-read chapters of your life ... previous chapters of your life help you grow. States that she is going to use the topics discussed today to keep balance ... act of things that can be a positive towards my goals rather than ignore them Completed WDEP (Wants, Doing, Evaluate, and Plan) worksheet. She identified her want as I want to get through one week without thinking what if. Able to identify what she currently doing to obtain that want, evaluated her progress, and then developed plan to continue to move forwards with obtaining her want. Benefited from group by identifying thoughts and behaviors that are keeping her stuck and developing plan to become unstuck. Will continue in IOP to maintain safety, prevent decompensation, and stabilize mood. Narrative Note: []
--- NOTE | 2018-05-13 16:34 | BH.MDN_ITS ---
Multi-Disciplinary Note - Note 45-min Individual Time Started:: 12:25 Date: 05/13/18 Purpose of session/treatment goals addressed:: Purpose of session was to assess current symptoms and stressors. Other topics: review homework, identify strategies to apply self-care strategies/ideas, and increasing support. Eye Contact:: Good Motor Activity:: Appropriate Appearance:: Casual Speech:: Appropriate Mood:: Depressed, Other - tearful at times Affect:: Congruent Thoughts:: Linear, Logical, No evidence of hallucinations/delusions noted Staff Interventions:: Therapist used open ended questions to elicit pt's current symptoms and stressors. Therapist processed pt's homework about identifying 2 things she can do in the self-care wheel worksheet she was provided. Therapist challenged and assisted pt on how she can apply the self-care activities into her daily/weekly routine. Therapist provided homework for pt to identify her core beliefs about crying and expressing her emotions. Client Response:: Pt engaged and open throughout session. Pt reported she completed the self-care wheel homework from last week. Pt reported for psychological self-care she will ask for help by allowing herself to reach out to supports when in need, versus trying to solve problems on her own. Pt shared for emotional self-care she will practice forgiving herself for being a sucky mental health person. Pt elaborated that she thinks her lack of communication and difficulty managing he emotions make her a sucky mental health person. With challenging by therapist pt recognizes her negative labeling does not help her situation. Pt reported for emotional self-care she will also work on saying positive affirmations about herself several times a week. Pt shared she also wants to work on self-love. Pt reported in order to achieve self-love she believes she has to lose weight because her external view of self matters. Through discussion pt recognizes the need to lose weight in order to have self- love would be conditional love. Pt shared she has experienced poor body image for many years and believes if she looks nice on the outside she will feel better about herself on the inside. Pt seems to have awareness these beliefs are faulty, but doesn't seem ready to address the distorted thoughts. Pt reported for personal self-care she will work on increasing her time spent with family because she recognizes she doesn't put forth much effort to have actual quality time spent with her kids and . Pt shared she will try to do a 30 minute game or activity with her kids after dinner each night. Pt became tearful when talking about starting to open up to others about her thyroid cancer. Pt stated she has a hard time talking about her cancer because she thinks others will think her cancer was easy since she could just get it removed and it won't come back. Pt recognizes she is minimizing her own experience. Pt became tearful when talking about her cancer. Pt stated she did not want to cry because that will mean she is weak. Pt recognizes she doesn't talk about her emotions because it would result in her crying, which is something she wants to avoid. reported she uses humor as a way to deflect from her true emotions. Pt agreeable to identify core beliefs that contribute pt to not wanting to cry or express her emotions. Risks/Concerns:: Pt denies suicidal ideation, plan or intention to date. Progress Toward Goals/Plan:: Pt showing progress with starting to open up to about her feelings, instead of trying to keep all her emotions and thoughts to herself. Pt also demonstrating progrss by completing homework from session and identifying ways she can incorporate ideas to her everyday life. Pt continuing to have negative and distorted thought patterns which seems to hold pt back from acting on some of the skills/strategies discussed in IOP. Pt to continue IOP level of care to decrease depression, increase communication, and prevent decompensation. Time Stopped:: 13:12
--- NOTE | 2018-05-20 10:13 | BH.SGPN.GN ---
Behaviors/Verbalizations/Mental Status: []Client alert and oriented, neatly dressed and groomed. Eye contact good. Motor activity appropriate. Speech quiet- often using humor to deflect. Affect constricted, mood euthymic. Thoughts linear, logical, no signs of hallucinations or delusions. Client Response/Progress/Benefit: []Client responded somewhat well to session, participating in activity, but quiet during discussion. Client nodded in agreement with peers that impossible situations differ based on perception and the individual experiencing it. Client reported viewing something as impossible can lead to a person giving up or not trying to solve a problem. Client shared there have been times in the past when she viewed something as impossible, but she was eventually able to overcome them. Client engaged in the activity, providing different ideas and being assertive of her thoughts. Client often jokingly tried to find shortcuts in the activity due to frustrations that the group was struggling. Client appeared to benefit from gaining awareness of how the impossible mindset impacts mental health progress. Progress variable as client?s attendance is limited due to work and school. Client appears to be doing better with managing her emotions at work per her report, but she can continue to improve in verbalizing her emotions and challenging distortions.
--- NOTE | 2018-05-20 11:20 | BH.SGPN.GN ---
Behaviors/Verbalizations/Mental Status: [] Eye contact is good. Motor activity is appropriate. Appearance is casual. Speech is Appropriate. Mood is depressed. Affect is flat. Thoughts are linear and logical. No evidence of psychosis. Client Response/Progress/Benefit: [] Pt was an active participant in group activity and discussion. Reviewed worksheet with the group and together patients identified characteristics of fixed vs growth mindset. Group identified that when presented with challenges those with fixed mindset; avoid challenges, magnify challenges, focus on criticism, ignore change, and their coping skills are fixed. Discussed how this mindset can impact mental wellness. Group also identified that when presented with challenges those with growth mindset; welcome changes, learn and grow from feedback, and believe that new skills can be learned. Pt then wrote down a current challenge and ways to approach this challenge with a growth mindset. Benefited from group as pt was able to identify how one's mindset is important in managing MH. Will continue in IOP to prevent decompensation and learn effective coping skills. Narrative Note: []
--- NOTE | 2018-05-21 11:15 | BH.MDN ---
Multi-Disciplinary Note - Note 30-min Individual Time Started:: 08:20 Date: 05/21/18 Purpose of session/treatment goals addressed:: Purpose of session was to asses pt's current symptoms and stressors. other topics included: treatment progress, review homework, cognitive distortions, and plan for discharge. Eye Contact:: Good Motor Activity:: Appropriate Appearance:: Casual Speech:: Appropriate Mood:: Depressed Affect:: Constricted Thoughts:: Linear, Logical, No evidence of hallucinations/delusions noted Staff Interventions:: Therapist used open ended questions to elicit pt's current symptoms and stressors. Therapist discussed options with pt about treatment given current work situation. Therapist collaborated with pt to identify plan for IOP. Therapist reviewed homework from last individual session. Therapist provided psychoeducation about cognitive distortions. Therapist provided homework for pt to write down minimizing thoughts pt has throughout the week. Client Response:: Pt reported her job will not work with her to adjust pt's schedule so she can attend IOP at least 2 times a week. Pt shared she would only be able to attend 2 times this week and next week then would only attend once a week. Pt agreed attending once a week would not provide much benefit for pt. Pt wanting to establish with a individual counselor for continued care and at this time would be a better fit for her schedule. Pt reported she would attend IOP two times this week and two times next week then discharge from IOP. Pt although disappointed couldn't get her schedule moved around to attend IOP longer, reported she was comfortable with the plan. Pt shared in her short time attending IOP she has noted progress in herself. Pt reported she has made strides with opening up to her and overall improved communication. Pt shared he followed through with her homework from last week by communciating to her about thoughts and feelings about various topics at least two times throughout the week. Pt reported she is noticing how being open and honest can benefit their relationship. Pt related to several of the cognitive distortions discussed. Pt reported she connects most with the distortion of minimizing because she is able to think of several examples in which she minimizes her experience. Pt able to recognize she minimizes her cancer diagnosis and treatment, which contributed to pt not talking about her experience, worries, and feelings to anyone. Pt agreeable to complete homework of identifying thoughts and situations that she minimizes with plan to challenge/reframe together in next session. Risks/Concerns:: Pt denies suicidal ideation, plan or intention to date. Progress Toward Goals/Plan:: Pt demonstrating progress with improved communication with . Progress also noted with pt reporting decrease in depressed and anxious symptoms. Due to schedule pt will discharge from IOP next week. Plan is to help pt establish with an outpatient counselor before she discharges next week. Pt to continue IOP level of care to maintain gains, establish aftercare adn prevent decompensation. Time Stopped:: 08:50
--- NOTE | 2018-05-23 14:07 | BH.COMM ---
Communication Note - Communication with Client Communication Note: Pt cancelled attending IOP due to child being sick. Confirmed would attend on Saturday of next week.
--- NOTE | 2018-05-26 14:07 | BH.COMM ---
Communication Note - Communication with Client Communication Note: Pt left voicemail cancelling attending IOP today due to having to go into work. Pt confirmed she would attend IOP on Saturday of this week.
--- NOTE | 2018-05-30 12:10 | BH.MTP_ITS ---
Treatment Plan Review Date of Admission:: 04/15/18 Date of Treatment Plan Review:: 05/16/18 Admitting Diagnoses:: F33.1 Major Depressive Disorder, Recurrent, Moderate Current Diagnoses:: F33.4 Major depression, single episode, in partial remission; chronic adjustment disorder with anxiety; relationship distress with spouse; history of opiate addiction; Borderline Personality traits Patient's Response to Treatment:: Pt has had a couple IOP cancellations since starting program, which may have impacted pt's progress due to pt only attending 2 times a week. Initially pt was very quiet during group sessions, only contributing to discussion if elicited by therapist. Pt has shown increased engagement during group sessions as shown by increased verbal contributions. When given homework pt has completed assignments. Status of Current Problems and Symptoms: Pt reports continued depressive symptoms with decrease in intensity and duration. Pt continuing to minimize her experience of being diagnosed with thyroid cancer which seems to be exasperating her depressive and anxious symptoms. Pt starting to work on being open with her about her emotions and thoughts, which pt does report is improving their relationship. Pt's distorted thoughts continuing to reinforce depressive and anxious symptoms. Pt continues to endorse anxious symptoms with daily ruminations. Pt denies suicidal ideations. Pt denies panic attacks. Treatment team recommends pt continue IOP level of care to maintain gains, increase generalization of skills, and prevent decompensation. Problem #1 Problem Name:: Reduce depression and feelings of hopelessness. Status of Goals:: Objective 1 - Pt is progressing on this goal as evidenced by pt being able to identify at least 2 thoughts that reinforce her depressed symptoms. Pt struggles with challenging and reframing thoughts on a consistent basis. Objective 2 - Pt has progressed on objective as evidenced by pt's self- report score on DSM 5 cross-cutting measure. At intake pt scored on the depressive subscale a 6/8, with 8 being severe, and at review pt scored a 2/8 wich indicates a reduction in depressed symptoms. Team Recommendations:: Treatment team recommends continue current goals to maintain gains and increase consistency with application of skills. Problem #2 Problem Name:: Stabilize anxiety level while increasing ability to function on daily basis Status of Goals:: Objective 1 - pt has made progress on this goal as evidenced by pt being able to identify several healthy coping skills she can use to help reduce her anxiety including self-care and grounding techniques. Pt struggling to consistently applying healthy coping and sometimes reverts to old habits by avoiding. Objective 2 - Pt has progressed on objective as evidenced by pt's self-report score on DSM 5 cross-cutting measure. At intake pt scored on the anxious subscale a 8/12, with 12 being severe, and at review pt scored a 2/12 which indicates a reduction in anxious symptoms. Team Recommendations:: Treatment team recommends continue current goals to maintain gains and increase consistency with application of skills.
--- NOTE | 2018-05-30 14:09 | BH.COMM ---
Communication Note - Communication with Client Communication Note: Pt no showed/no called. Pt will be discharged from program due to today being planned discharge date because pt would not be able to get off work anymore to attend IOP.
--- NOTE | 2018-06-04 14:07 | BH.COMM_ITS ---
Communication Note - Communication with Client Communication Note: Pt cancelled attending IOP due to child being sick. Co nfirmed would attend on Saturday of next week.
--- NOTE | 2018-06-04 14:11 | BH.DS_ITS ---
Discharge Summary - Demographics Date of Admission:: 04/15/18 Discharge Date: 05/30/18 Presenting Problems at Admission:: Pt self-referred to IOP due to worsening depression and anxiety. Pt diagnosed with thyroid cancer December 2017 which pt attributed to exasperation of depressed symptoms. Pt's mental health symptoms were impacing pt's complete work duties. 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 Pt stated although she is taking care of her kids basic needs she recognizes her depression is keeping her from being engaged with her kids. Pt having marital discord which exasperates pt's mental health symptoms. Pt was not funcitoning at baseline. 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 Pt unable to take any additional time off of work and her nursing classes restarted. - Treatment Progress During Treatment & Response: Despite pt's attendance being inconsistent pt did note reduction with intensity and duration of anxious and depressed symptoms. Pt was working on increasing her communication with her which pt indicated was improving their relationship. Pt reported improved awareness of her distorted thought patterns and able to challenge thoughts at times. Pt's progress was hindered by inconsistent attendace. When pt first started program she was guarded and quiet during group counseling, however once pt became comfortable she was an active participant. Pt did complete homework from both individual and group counseling. Again pt's attendance made it difficult to have consistent individual therapy sessions which could have impacted treatment progress. Issues Still to be Addressed:: Pt could benefit from continued reinforcement of healthy coping and challenging unhealthy thought patterns. Pt also could benefit from focusing on improving interpersonal relationships. Pt still hasn't fully processed her thoughts and emotions connected with having thyroid cancer and could benefit from processing her experience. Discharge Recommendations/Instructions:: Pt recommended to schedule with an outpatient counselor for continued care. Discharge Handout: Complete Discharge Handout with client on aftercare options and continuity of care.
== END 2018-05-30 14:00 | disposition home or self-care (01) ==
LOC: BHIOP 09:00
PROVIDERS: Family Provider Family Medicine; PCP Family Medicine; Referring Provider Psychiatry & Neurology Psychiatry; Visit Provider Psychiatry & Neurology Psychiatry
DX: F32.4 Major depressive disorder, single episode, in partial remission (principal); F43.22 Adjustment disorder with anxiety; F60.3 Borderline personality disorder; F11.11 Opioid abuse, in remission
CPT/HCPCS: H0035; 90853

== ENCOUNTER → 2018-06-14 09:32 | Outpatient (CLI) | payer OTHER, SELFPAY ==
[2018-06-14 10:32] LABS: Absolute Lymphocyte Count 1.32 X10^3/ul (0.83-4.51); Absolute Neutrophil Count 4.5 X10^3/uL (2.0-7.7); Basophil# 0.01 X10^3/uL; Basophil% 0.2 % (0-1); Eosinophil# 0.01 X10^3/uL; Eosinophils% 0.2 % (0-5); Hematocrit 38.7 % (37-47); Hemoglobin 13.1 g/dl (12.0-15.0); Lymphocyte # 1.32 X10^3/ul (4.0); Lymphocyte % 20.7 % (19-41); Mean Corp Hgb Conc 33.9 g/gl (32-36); Mean Corpuscular Hgb 31.1 pg (27.0-32.0); Mean Corpuscular Volume 91.9 fL (81-99); Mean Platelet Vol. 10.4 fl (6.2-12.0); Monocyte# 0.49 X10^3/uL; Monocyte% 7.7 % (0-10); Neutrophil # 4.52 X10^3/uL (2.7-7.7); Neutrophil % 70.9 % (47-70); Platelet Count 226 K/mm3 (150-450); RBC Distribution Width CV 12.7 % (11.6-14.6); RBC Distribution Width SD 41.9 fl (35.1-43.9); Red Blood Count 4.21 M/mm3 (4.2-5.4); White Blood Count 6.4 K/mm3 (4.4-11.0)
[2018-06-14 10:38] LABS: POSITIVE COUNT NO; POSITIVE DIFFERENTIAL NO; POSITIVE MORPHOLOGY NO
[2018-06-14 11:10] LABS: ALB/GLOB Ratio 1.3 RATIO (0.9-2.4); AST(SGOT) 14 U/L (15-37); Alanine Aminotransfer ALT/SGPT 24 U/L (13-56); Albumin, Serum 4.2 g/dL (3.2-5.0); Alkaline Phosphatase 90 U/L (45-117); Anion Gap 11 (5-15); BUN 13 mg/dL (7-18); BUN/Creat Ratio 12.9 RATIO (10-20); Calcium,Total 9.2 mg/dL (8.5-10.1); Chloride 104 mmol/L (98-107); Creatinine, Serum 1.01 mg/dL (0.55-1.02); EST Glomerular Filtration Rate 69 mL/min (>60); Est Glom Filt Rate - Afr Amer 84 mL/min (>60); Free T3 2.5 pg/mL (2.18-3.98); Globulin 3.3 g/dL (2.2-4.2); Glucose 80 mg/dL (74-106); Protein, Total 7.5 g/dL (6.4-8.2); Sodium Level 143 mmol/L (136-145); Thyroid Stim Hormone (TSH) 3.22 uIU/mL (0.358-3.74)
== END ==
PROVIDERS: Family Provider Family Medicine; PCP Family Medicine; Referring Provider Internal Medicine Endocrinology, Diabetes & Metabolism; Visit Provider Internal Medicine Endocrinology, Diabetes & Metabolism
DX: C73 Malignant neoplasm of thyroid gland (principal)
CPT/HCPCS: 36415; 80053; 84439; 84443; 84481; 85025

== ENCOUNTER 2018-12-17 16:25 | Emergency (ER) | payer OTHER, SELFPAY ==
[2018-12-17 16:25] VITALS: BP 138/76; PULSE 100; RESP 18; TEMP 36.9; O2SAT 97; BMI 33.1
--- NOTE | 2018-12-17 17:01 | ED.DCSUM_ITS ---
- ER Visit Summary Date of Service: 12/17/18 Chief Complaint: Back pain History of Present Illness: The patient is a 28 F presenting with back pain. Patient states she injured her back at work a few months ago. 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 She had no direct tr auma to her back. She has been taking ibuprofen. She saw her primary care physician who advised her to do back exercises. She states the pain worsened last night. She denies bowel or bladder incontinence. She is able to ambulate with pain. Denies numbness or weakness. Denies other complaints. Physical Examination: Vitals are stable. Patient is afebrile. Alert no acute distress. HEENT exam is unremarkable. Neck is supple. Lungs are clear and equal bilaterally. Heart is regular rate and rhythm. Abdomen is soft nontender nondistended. Back: Bilateral lumbar paraspinal muscle tenderness, straight leg raise positive at 30 degrees bilaterally Extremities are unremarkable. Skin is warm and dry. No focal neurologic deficit. Normal strength and sensation Remainder of exam is unremarkable. Emergency Department Course and Treatment: Patient given Toradol IM, Valium p.o. She continues to have pain and was given morphine, Zofran IM. On reevaluation she is resting comfortably. She is advised to follow-up with her primary care physician. Advised return to ED for worsening complaints. Disposition: Discharge home Impression: Lumbar strain This note was generated with [employer] dictation software. It may contain incorrect words, spelling, and punctuation that were not noted in review of the chart prior to signing ED Disposition - Plan for ED Patient: Instructions: BACK AND NECK PAIN, General Prescriptions: Hydrocodone Bitart/Apap 5-325 [[employer] 5MG-325MG] 1 tab PO Q6H PRN PRN 3 Days #10 tab PRN Reason: Pain Prescription Printed Referrals: Ty Wong MD [Primary Care Provider] -
[2018-12-17] MEDS: Ketorolac 60 MG/2 ML Vial IM (17:31)
[2018-12-17] MEDS: diazePAM 5 MG Tablet PO (17:31)
[2018-12-17 18:38] VITALS: BP 119/74; PULSE 78; RESP 16; O2SAT 100
[2018-12-17] MEDS: Ondansetron 4 MG/2 ML Vial IM (18:45)
[2018-12-17] MEDS: morphine 10 MG/ML Syringe IM (18:45)
--- NOTE | 2018-12-17 19:31 | DCINST.ED_ITS ---
ED Disposition - Plan for ED Patient: Instructions: BACK AND NECK PAIN, General Prescriptions: Hydrocodone Bitart/Apap 5-325 [[place] 5MG-325MG] 1 tablet PO Q6H PRN PRN 3 Days #10 tablet PRN Reason: Pain Referrals: Ty Wong MD [Primary Care Provider] -
[2018-12-17 19:55] VITALS: BP 138/79; PULSE 68; RESP 16; O2SAT 96
== END 2018-12-17 19:57 | disposition home or self-care (01) ==
PROVIDERS: Emergency Provider Emergency Medicine; Family Provider Family Medicine; PCP Family Medicine
DX: S39.012A Strain of muscle, fascia and tendon of lower back, initial encounter (principal); X58.XXXA Exposure to other specified factors, initial encounter; Y93.89 Activity, other specified
CPT/HCPCS: 96372; 99283; J2405

== ENCOUNTER → 2019-01-15 16:59 | Outpatient (CLI) | payer OTHER, SELFPAY ==
[2018-12-17 16:25] VITALS: BMI 33.1
--- NOTE | 2019-01-15 17:05 | RAD_ITS ---
STUDY: X-RAY EXAMINATION: SCOLIOSIS SERIES REASON FOR EXAM: Female, 28 years old. Scoliosis TECHNIQUE: 3 view(s) of the thoracolumbar spine were obtained in the upright standing position. COMPARISON: None. FINDINGS: There is a 13 degree dextroscoliosis of the thoracic spine with the apex of the convexity at the T11 level. The presence or absence of thoracic kyphosis or lumbar lordosis cannot be determined as lateral views were not obtained. The soft tissue structures are unremarkable. RAD/Scoliosis 1 view IMPRESSION: 13 degree dextroscoliosis of the thoracic spine with the apex of the convexity at the T11 level. Electronically Signed: Bartolome Weathers MD at 17:26 EDT , Service support ,
== END ==
PROVIDERS: Family Provider Family Medicine; PCP Family Medicine; Referring Provider Family Medicine; Visit Provider Family Medicine
DX: M41.9 Scoliosis, unspecified (principal)
CPT/HCPCS: 72081

== ENCOUNTER → 2020-02-24 | Outpatient (CLI) | payer OTHER, SELFPAY | END | disposition home or self-care (01) | LOC: LABSPEC 15:35 | PROVIDERS: PCP Family Medicine; Referring Provider Family Medicine; Visit Provider Family Medicine | DX: R19.7 Diarrhea, unspecified (principal) | CPT/HCPCS: 87635; U0003 ==

== ENCOUNTER → 2020-02-29 16:09 | Outpatient (CLI) | payer OTHER, SELFPAY | PROVIDERS: PCP Family Medicine; Visit Provider Family Medicine | DX: R09.89 Other specified symptoms and signs involving the circulatory and respiratory systems (principal) | CPT/HCPCS: 87633; 87635; U0003 ==

== ENCOUNTER → 2020-05-16 08:30 | Outpatient (CLI) | payer OTHER, SELFPAY ==
[2020-05-16 10:05] LABS: Absolute Lymphocyte Count 1.47 X10^3/uL (0.83-4.51); Absolute Neutrophil Count 3.8 X10^3/uL (2.0-7.7); Basophil# 0.02 X10^3/uL; Basophil% 0.3 % (0-1); Eosinophil# 0.03 X10^3/uL; Eosinophils% 0.5 % (0-5); Hematocrit 39.8 % (37-47); Hemoglobin 13.1 g/dL (12.0-15.0); Lymphocyte # 1.47 X10^3/ul (4.0); Lymphocyte % 25.6 % (19-41); Mean Corp Hgb Conc 32.9 g/dL (32-36); Mean Corpuscular Hgb 29.6 pg (27.0-32.0); Mean Platelet Vol. 10.7 fl (6.2-12.0); Monocyte# 0.38 X10^3/uL; Monocyte% 6.6 % (0-10); NRBC Flagged by Analyzer 0 % (0-5); Neutrophil # 3.84 X10^3/uL (2.7-7.7); Neutrophil % 66.8 % (47-70); Platelet Count 239 K/mm3 (150-450); RBC Distribution Width CV 11.7 % (11.6-14.6); RBC Distribution Width SD 38.7 fl (35.1-43.9); Red Blood Count 4.42 M/mm3 (4.2-5.4); White Blood Count 5.8 K/mm3 (4.4-11.0)
[2020-05-16 10:30] LABS: ALB/GLOB Ratio 1.1 RATIO (0.9-2.4); AST(SGOT) 19 U/L (15-37); Alanine Aminotransfer ALT/SGPT 35 U/L (13-56); Albumin, Serum 3.9 g/dL (3.2-5.0); Alkaline Phosphatase 98 U/L (45-117); Anion Gap 4 (5-15); BUN 11 mg/dL (7-18); BUN/Creat Ratio 12.2 RATIO (10-20); Chloride 108 mmol/L (98-107); EST Glomerular Filtration Rate 77 mL/min (>60); Est Glom Filt Rate - Afr Amer 94 mL/min (>60); Globulin 3.4 g/dL (2.2-4.2); Glucose 95 mg/dL (74-106); Potassium 3.8 mmol/L (3.5-5.1); Protein, Total 7.3 g/dL (6.4-8.2); Sodium Level 140 mmol/L (136-145); T4 Free Direct 1.43 ng/dL (0.76-1.46); Thyroid Stim Hormone (TSH) 0.07 uIU/mL (0.358-3.74)
== END ==
PROVIDERS: PCP Family Medicine; Referring Provider Family Medicine; Visit Provider Family Medicine
DX: F31.81 Bipolar II disorder (principal); E03.9 Hypothyroidism, unspecified
CPT/HCPCS: 36415; 80053; 84439; 84443; 85025

== ENCOUNTER → 2020-05-17 12:15 | Outpatient (CLI) | payer OTHER, SELFPAY ==
[2020-05-18 07:15] LABS: SARS-COV-2 TOTAL ABS Reactive (Nonreactive)
== END ==
PROVIDERS: PCP Family Medicine; Referring Provider Family Medicine; Visit Provider Family Medicine
DX: Z20.822 Contact with and (suspected) exposure to COVID-19 (principal)
CPT/HCPCS: 36415; 86769; 87635; U0005; U0003

== ENCOUNTER 2020-05-25 12:40 | Emergency (ER) | payer OTHER, SELFPAY ==
[2020-05-25 12:43] VITALS: BP 132/88; PULSE 74; RESP 20; TEMP 36.8; O2SAT 97; BMI 34.1
[2020-05-25 12:47] VITALS: O2SAT 97
--- NOTE | 2020-05-25 13:30 | ED.VIS.GEN ---
History of Present Illness Chief Complaint: Allergic Reaction Informant: Patient Onset: Hours Context: Sudden Onset Timing: Continuous Quality: Throat discomfort and chest discomfort Location: Anterior throat and anterior chest Current Severity: Moderate Maximum Severity: Severe Worsened by: Onset 20 to 30 minutes after Imitrex Relieved by: Nothing Associated Symptoms: Headache Narrative: Patient is a 29-year-old woman with history depression and migraine headaches who took Imitrex for the first time. She presents because of discomfort tightness in her throat and chest that started 2030 minutes after taking Imitrex. She has a headache. This is no different than her typical headache. She does report photophobia. She denies photophobia. Denies neck pain or neck stiffness. She denies dyspnea or dyspnea on exertion. She does report nausea without vomiting diarrhea. Denies skin lesions. She denies paresthesia, anesthesia medics. Denies trouble with balance or walking. She denies change in voice. She had no drooling or difficulty swallowing her own secretions. Prior similar symptoms: No Recent Illness/Hospitalization: Yes - Treatment for migraine headaches - Past Medical History (1) History depression and anxiety Status: Acute (2) History of migraine headaches Status: Acute Past Medical History - Allergies and Home Meds Allergies/Adverse Reactions: Allergies Penicillins Allergy (Verified 05/25/20 12:42) Hives hydroxyzine [From Vistaril] Adverse Reaction (Verified 05/25/20 12:42) makes me angry Primary Care Physician: Ty Wong MD [Primary Care Provider] - Prior records reviewed: No Surgical History: noncontributory Lives: Spouse/ Significant Other, With Family Smoking Status: Never smoker Alcohol: None Drugs: None Review of Systems General: Denies: Chills, Fever, Sweats Eyes: Denies: Visual changes - bilaterally, Blurred Vision - bilaterally ENT: Reports: - - Note/anterior neck discomfort. Denies: Rhinorrhea, Sore throat Cardiovascular: Reports: Chest pain Respiratory: Denies: Dyspnea, Cough, Dyspnea on exertion Gastrointestinal: Reports: Nausea. Denies: Abdominal pain, Vomiting, Diarrhea, Melena, Hematochezia Genitourinary: Denies: Dysuria, Hematuria, Frequency Musculoskeletal: Denies: Myalgias, Arthralgias, Neck pain, Back pain, Swelling, Extremity Pain, -, - Neurological: Reports: Headache. Denies: Weakness, Parasthesia Psych: Reports: Depression Endocrine: Denies: Polyuria, Polydipsia Hematologic: Denies: Easy bruising Physical Exam Vital Signs/Narrative: Vital Signs Temp Pulse Resp BP Pulse Ox 05/25/20 12:43 98.2 F 74 20 H 132/88 H 97 Inital Vital Signs reviewed: Yes General: Well nourished, Well developed, Obese, No Acute Distress Head: Normocephalic, Atraumatic Eyes: Perrl, EOMI. Negative for: Pale conjunctiva, Scleral icterus ENT: Moist mucous membranes, No rhinorrhea Neck: Supple, Nontender, No lymphadenopathy, No JVD Cardiovascular: Regular rate, Regular rhythm, No murmurs, Normal S1, Normal S2 Respiratory: No distress, CTA bilaterally, Chest nontender Abdomen: Soft, Nontender, Nondistended, Normal bowel sounds Back: Nontender, Normal Inspection Extremities: Nontender, No edema Skin: Normal color, No rash, No Trauma. Negative for: Cyanosis, Diaphoresis, Jaundice Neurological: Alert, Oriented x3, Cranial nerves II-XII grossly intact, Normal Strength, Normal Sensation, Normal DTR - There is no clonus or Babinski sign. Psychological: Normal affect, Normal Mood Diagnostic/Tx/Re-eval - Medical Decision Making Patient has adverse reaction to Imitrex. She was reassessed at 1326. Her discomfort has improved. She is reporting worsening headache. She was treated with migraine cocktail which included 10 mg of Reglan, 25 mg of Benadryl and 50 mg of Toradol IV push. Patient does not have any systemic findings to suggest allergic reaction i.e. urticaria, angioedema etc. Patient was reassessed at 05/09/2002. The symptoms that prompted patient come to the emergency room have resolved. She just received the medication was ordered for her migraine headache. Patient was reassessed at 145. Headache is resolved. Her throat/chest discomfort has resolved. ED Disposition - Plan for ED Patient: Disposition: Home or Assisted Living Diagnosis: Adverse reaction to drug in therapeutic use, Headache, migraine, intractable Instructions: ED Drug Reaction, Other, ED, Migraine (Classical) Referrals: Ty Wong MD [Primary Care Provider] - As Needed
[2020-05-25] MEDS: Metoclopramide 10 MG/2 ML Vial IV (13:59)
[2020-05-25] MEDS: DiphenhydrAMINE 50 MG/ML Syringe 25 MG IV (13:59)
[2020-05-25] MEDS: Ketorolac 15 MG/ML Vial IV (13:59)
[2020-05-25 14:30] VITALS: BP 128/80; PULSE 81; RESP 22; O2SAT 96
== END 2020-05-25 14:31 | disposition home or self-care (01) ==
PROVIDERS: Emergency Provider Emergency Medicine; PCP Family Medicine
DX: R07.89 Other chest pain (principal); R07.0 Pain in throat; T39.8X5A Adverse effect of other nonopioid analgesics and antipyretics, not elsewhere classified, initial encounter; Y92.9 Unspecified place or not applicable; G43.919 Migraine, unspecified, intractable, without status migrainosus; F32.9 Major depressive disorder, single episode, unspecified; F41.9 Anxiety disorder, unspecified; Z68.34 Body mass index [BMI] 34.0-34.9, adult; E66.9 Obesity, unspecified
CPT/HCPCS: 96374; 96375; 99285; J7030; A4216

== ENCOUNTER → 2020-11-03 13:47 | Outpatient (CLI) | payer OTHER, SELFPAY ==
[2020-11-03 18:07] LABS: Erythrocyte Sedimentation Rate 4 mm/hr (0-30)
[2020-11-03 18:09] LABS: Absolute Lymphocyte Count 1.76 X10^3/uL (0.83-4.51); Absolute Neutrophil Count 4.4 X10^3/uL (2.0-7.7); Basophil# 0.04 X10^3/uL; Basophil% 0.6 % (0-1); Eosinophil# 0.07 X10^3/uL; Hematocrit 42.2 % (37-47); Lymphocyte # 1.76 X10^3/ul (0.83-4.51); Lymphocyte % 26.3 % (19-41); Mean Corp Hgb Conc 33.2 g/dL (32-36); Mean Corpuscular Hgb 30.8 pg (27.0-32.0); Mean Platelet Vol. 11.4 fl (6.2-12.0); NRBC Flagged by Analyzer 0 % (0-5); Neutrophil % 65.8 % (47-70); Platelet Count 240 K/mm3 (150-450); RBC Distribution Width SD 41.5 fl (35.1-43.9); Red Blood Count 4.54 M/mm3 (4.2-5.4); White Blood Count 6.7 K/mm3 (4.4-11.0)
[2020-11-03 19:23] LABS: ALB/GLOB Ratio 1.2 RATIO (0.9-2.4); AST(SGOT) 21 U/L (15-37); Alanine Aminotransfer ALT/SGPT 37 U/L (13-56); Alkaline Phosphatase 97 U/L (45-117); Anion Gap 7 (5-15); BUN 14 mg/dL (7-18); BUN/Creat Ratio 14.2 RATIO (10-20); Calcium,Total 8.5 mg/dL (8.5-10.1); Chloride 105 mmol/L (98-107); Creatinine, Serum 0.99 mg/dL (0.55-1.02); EST Glomerular Filtration Rate 70 mL/min (>60); Est Glom Filt Rate - Afr Amer 85 mL/min (>60); Follicle Stimulating Hormone 58.5 mIU/mL; Free T3 2.2 pg/mL (2.18-3.98); Globulin 3.4 g/dL (2.2-4.2); Glucose 93 mg/dL (74-106); Luteinizing Hormone 34.4 mIU/mL; Potassium 4.2 mmol/L (3.5-5.1); Protein, Total 7.4 g/dL (6.4-8.2); Sodium Level 141 mmol/L (136-145); T4 Free Direct 1.47 ng/dL (0.76-1.46); Thyroid Stim Hormone (TSH) 1.45 uIU/mL (0.358-3.74)
[2020-11-06 07:50] LABS: ANTINUCLEAR ANTIBODIES DIRECT Negative (Negative)
== END ==
LOC: MFPLAB 13:48
PROVIDERS: PCP Family Medicine; Visit Provider Family Medicine
DX: R23.2 Flushing (principal); E03.9 Hypothyroidism, unspecified
CPT/HCPCS: 36415; 80053; 83001; 83002; 84439; 84443; 84481; 85025; 85652; 86038

== ENCOUNTER 2021-01-16 20:16 | Emergency (ER) | payer OTHER, SELFPAY ==
[2021-01-16 20:17] VITALS: BP 130/82; PULSE 86; RESP 16; TEMP 36.2; O2SAT 98; BMI 33.4
--- NOTE | 2021-01-16 20:40 | RAD_ITS ---
STUDY: X-RAY - RIGHT ANKLE REASON FOR EXAM: Female, 30 years old. Pt states falling down step and rolling right ankle, right ankle pain and swelling TECHNIQUE: 3 view(s) of the ankle. COMPARISON: None. FINDINGS: Several acute oblique fractures are present in the most distal aspect of the fibular shaft with mild displacement. The overlying soft tissues are mildly swollen. Normal visualized distal tibia. Normal medial and lateral malleoli. Normal tibiotalar articulation and ankle mortise. Normal visualized talus and calcaneus. The visualized subtalar, talonavicular, calcaneocuboid and tarsal articulations are normal. RAD/Ankle min 3 Views IMPRESSION: Acute oblique mildly displaced fractures of the distal fibula Electronically Signed: Sam Schwartz MD at 21:34 EDT , Service support ,
--- NOTE | 2021-01-16 22:19 | EDS_ITS ---
HPI History of Present Illness Chief Complaint: Lower Extremity Injury Informant: patient and spouse/S.O. Onset/Context/Timing Onset: Hours Context: Sudden Onset Timing: Continuous Quality of Pain: Dull and Aching Location: Lateral right ankle Current Severity: Mild Maximum Severity: Severe Worsened by: Attempt to weight-bear Relieved by: Nothing Associated Symptoms Associated Symptoms: Positive for Loss of Funtion; Negative for Parasthesia and Weakness Narrative Narrative: Patient is a 30-year-old woman who was taking out the garbage. She missed 1 or 2 steps. She rolled her ankle. She presents because she is unable to bear weight and swelling over the lateral malleolus. She denies paresthesia, anesthesia medics. She had fracture of the left ankle. She has no other complaints. Tetanus Immunization: 5-10 years Prior similar symptoms: Yes Recent Illness/Hospitalization: No PFSH PFSH Medical History Anxiety Bipolar 2 disorder, major depressive episode Depression Insomnia Multiple thyroid nodules Papillary thyroid carcinoma Thyroid cancer Thyroid nodule Home Medications bupropion HCl 150 mg PO BID 12/16/15 [History Last Taken 09/12/17] lamotrigine 100 mg PO BID 03/25/16 [History Last Taken 09/12/17] trazodone 50 mg PO QHS PRN PRN 09/22/16 [History Last Taken 09/11/17] valacyclovir 500 mg PO DAILY 09/22/16 [History Last Taken 09/12/17] levothyroxine 175 mcg PO DAILY 05/25/20 [History Last Taken Unknown] oxycodone-acetaminophen 1 tab PO Q6H PRN PRN 5 Days #20 tablet 01/16/21 [Rx Last Taken Unknown] Allergy/AdvReac Type Severity Reaction Status Date / Time Penicillins Allergy Hives Verified 01/16/21 20:17 hydroxyzine [From Vistaril] AdvReac makes me Verified 01/16/21 20:17 angry Family History Mother CAD (coronary artery disease) Surgical History S/P section S/P hysterectomy S/P surgical manipulation of ankle joint S/P tonsillectomy and adenoidectomy S/P total thyroidectomy (~12/2017) Status post laparoscopy Social History (Updated 01/16/21 @ 22:[address] Man Larkin MD) household members: spouse Smoking Status: Never smoker alcohol intake: current alcohol intake frequency: holidays/special occasions only substance use type: does not use ROS ROS ED Cardiovascular Cardiovascular: Denies chest pain or palpitations Respiratory/Chest Respiratory/Chest: Denies cough, dyspnea or dyspnea on exertion Gastrointestinal Gastrointestinal: Denies nausea or vomiting Integumentary Denies Abrasions or rash Neurologic Neurologic: Denies paresthesias or weakness Hematologic/Lymphatic Hematologic/Lymphatic: Denies easy bleeding or easy bruising EXAM Physical Exam Const Vital Signs: 01/16/21 20:17 01/16/21 22:45 Temperature 97.2 F L Temperature Source Temporal Pulse Rate 86 Respiratory Rate 16 18 Blood Pressure 130/82 H Blood Pressure Mean 98 Pulse Ox 98 Oxygen Delivery Method Room Air Positive well nourished, well developed and obese General Appearance ED: well developed Nutritional Appearance: obese HEENT normocephalic and atraumatic Eyes PERRL Eyes Narrative: Extraocular muscles intact Resp normal respiratory effort Cardio regular rate and regular rhythm Extremity Negative for normal to inspection or full ROM Extremity Narrative: There is no a lot of malleolus. The pain to palpation over the lateral malleolus. Is no pain the patient over the medial malleolus. Is no pain the patient over the base of the metatarsal. DP and PT pulse are palpable. General Extremety ED: Yes weight-bearing difficulty; Negative for cyanosis or edema General Extremity: weight-bearing difficulty; Negative for cyanosis or edema Neuro oriented x3, CN's II-XII intact bilaterally and no sensory deficits noted Sensorium / Orientation: alert Motor Exam: strength 5/5 throughout Psych mental status grossly normal Skin no wounds Lesions: no lesions Rashes: no rashes MDM MDM MDM Narrative Medical decision making narrative: Three-view x-ray was ordered per nurse protocol. Differential is sprain versus fracture. Since there is a fracture patient was referred to Dr. Gary martin who is on- call for podiatry. She was placed in a posterior splint, nonweightbearing with crutches Radiography Diagnostic Testing: Radiology Impression Ankle X-Ray 01/16/21 20:40 IMPRESSION: Acute oblique mildly displaced fractures of the distal fibula Electronically Signed: Sam Schwartz MD at 21:34 EDT , Service support , X-ray reveals a minimally displaced spiral Cote B type fracture of the distal fibula/lateral malleolus. Procedures Lower Extremity Splints Lower Extremity Splint: Orthoglass and - (Short leg posterior) Splint Fabrication: Fabricated Location: Right Discharge Plan Triage Chief Complaint: Lower Extremity Injury ED Provider: Man Larkin Dx/Rx/DC Orders Prescriptions: New oxycodone-acetaminophen [oxycodone-acetaminophen] 1 TABLET tablet 1 tab PO Q6H PRN PRN (Reason: pain) 5 Days Qty: 20 RF: 0 No Action bupropion HCl 150 MG tablet extended release 12 hr 150 mg PO BID RF: 0 lamotrigine 25 MG tablet extended release 24hr 100 mg PO BID RF: 0 valacyclovir 1,000 MG tablet 500 mg PO DAILY RF: 0 trazodone 100 MG tablet 50 mg PO QHS PRN PRN (Reason: Sleep) RF: 0 levothyroxine 150 MCG tablet 175 mcg PO DAILY RF: 0 Primary Care Provider: Ty Wong Referrals: Ty Wong MD [Primary Care Provider] - Frank Baugh DPM [STAFF PHYSICIAN] - 3-5 Days Activity Restrictions/Additional Instructions: 1. Apply ice 8 times a day 2. Elevate ankle as much as possible. Elevate toes above your nose 3. Take pain medicine as prescribed 4. Keep splint absolutely clean and dry 5. Nonweightbearing Disposition Disposition: Home, Self Care
[2021-01-16 22:45] VITALS: RESP 18
[2021-01-16] MEDS: oxyCODONE 5 MG Tablet PO (23:12)
[2021-01-16 23:35] VITALS: BP 130/73; PULSE 77; RESP 18; O2SAT 98
== END 2021-01-16 23:35 | disposition home or self-care (01) ==
LOC: ED 23:45
PROVIDERS: Emergency Provider Emergency Medicine; PCP Family Medicine
DX: S82.431A Displaced oblique fracture of shaft of right fibula, initial encounter for closed fracture (principal); X50.1XXA Overexertion from prolonged static or awkward postures, initial encounter; Y93.01 Activity, walking, marching and hiking; Y92.9 Unspecified place or not applicable; Y99.8 Other external cause status; F31.81 Bipolar II disorder; E66.9 Obesity, unspecified; Z68.33 Body mass index [BMI] 33.0-33.9, adult; Z79.899 Other long term (current) drug therapy
CPT/HCPCS: 29515; 73610; 99284

== ENCOUNTER → 2021-02-14 14:50 | Outpatient (CLI) | payer OTHER, SELFPAY ==
--- NOTE | 2021-02-14 14:54 | RAD_ITS ---
STUDY: X-RAY - LUMBOSACRAL SPINE REASON FOR EXAM: Female, 30 years old. Dorsalgia TECHNIQUE: 7 view(s) of the lumbosacral spine were obtained. COMPARISON: Comparison is made with prior examination dated 09/16/2017. FINDINGS: Normal lumbar lordosis. There is a minimal levoscoliosis of the lumbar spine. There is normal alignment of the vertebrae. Normal vertebral bodies and endplates. Mild degree of disc space narrowing at the L4-L5 and L5-S1 levels. Normal bilateral sacral ala, sacroiliac joints, and visualized sacrum. Normal visualized soft tissue structures. RAD/L/S Spine w Bend Min 6 Vw IMPRESSION: Minimal levoscoliosis. Mild degree of disc space narrowing at the L4-L5 and L5-S1 levels. Electronically Signed: Edd Jones MD at 9:40 EDT , Service support ,
== END ==
LOC: MTRAD 14:51
PROVIDERS: PCP Family Medicine; Referring Provider Family Medicine; Visit Provider Family Medicine
DX: M48.061 Spinal stenosis, lumbar region without neurogenic claudication (principal); G89.29 Other chronic pain
CPT/HCPCS: 72114

== ENCOUNTER 2021-05-11 09:15 | Outpatient (CLI) | payer OTHER, SELFPAY ==
[2021-05-11 13:27] LABS: Vitamin D,25 Hydroxy 31.4 ng/mL
[2021-05-11 13:47] LABS: Luteinizing Hormone 28.4 mIU/mL; T4 Free Direct 1.77 ng/dL (0.76-1.46); Thyroid Stim Hormone (TSH) 0.12 uIU/mL (0.358-3.74)
[2021-05-12 21:47] LABS: Anti-Thyroglobulin AB < 1.0 IU/mL (0.0-0.9); Thyroglobulin, Serum Qt. < 0.1 ng/mL (1.5-38.5)
== END 2021-05-11 23:59 | disposition short-term general hospital (02) ==
LOC: BIMLAB 09:16
PROVIDERS: PCP Family Medicine; Referring Provider Internal Medicine Endocrinology, Diabetes & Metabolism; Visit Provider Internal Medicine Endocrinology, Diabetes & Metabolism
DX: N91.2 Amenorrhea, unspecified (principal); C73 Malignant neoplasm of thyroid gland; E89.0 Postprocedural hypothyroidism; E55.9 Vitamin D deficiency, unspecified
CPT/HCPCS: 36415; 82306; 83001; 83002; 84432; 84439; 84443; 86800

== ENCOUNTER 2021-07-03 08:11 | Outpatient (CLI) | payer OTHER, SELFPAY ==
[2021-07-03 12:40] LABS: Estradiol 14.4 pg/mL; Follicle Stimulating Hormone 52.5 mIU/mL; Luteinizing Hormone 33.4 mIU/mL
== END 2021-07-03 23:59 | disposition home or self-care (01) ==
LOC: BIMLAB 08:12
PROVIDERS: PCP Family Medicine; Visit Provider Internal Medicine Endocrinology, Diabetes & Metabolism
DX: R23.2 Flushing (principal)
CPT/HCPCS: 36415; 82670; 83001; 83002

== ENCOUNTER → 2022-05-10 | Outpatient (CLI) | payer OTHER, SELFPAY ==
[2022-05-10 11:26] LABS: Absolute Lymphocyte Count 1.72 X10^3/uL (0.83-4.51); Absolute Neutrophil Count 5.4 X10^3/uL (2.0-7.7); Basophil# 0.05 X10^3/uL; Basophil% 0.6 % (0-1); Eosinophil# 0.03 X10^3/uL; Eosinophils% 0.4 % (0-5); Hematocrit 43.9 % (37-47); Hemoglobin 14.8 g/dL (12.0-15.0); Lymphocyte # 1.72 X10^3/ul (0.83-4.51); Lymphocyte % 21.9 % (19-41); Mean Corp Hgb Conc 33.7 g/dL (32-36); Mean Corpuscular Hgb 30.3 pg (27.0-32.0); Mean Platelet Vol. 11.4 fl (6.2-12.0); Monocyte# 0.63 X10^3/uL; NRBC Flagged by Analyzer 0 % (0-5); Neutrophil # 5.37 X10^3/uL (2.7-7.7); Neutrophil % 68.6 % (47-70); Platelet Count 309 K/mm3 (150-450); RBC Distribution Width CV 12.2 % (11.6-14.6); RBC Distribution Width SD 39.9 fl (35.1-43.9); Red Blood Count 4.88 M/mm3 (4.2-5.4); White Blood Count 7.8 K/mm3 (4.4-11.0)
[2022-05-10 12:02] LABS: Vitamin D,25 Hydroxy 28.9 ng/mL
[2022-05-10 12:08] LABS: ALB/GLOB Ratio 1.1 RATIO (0.9-2.4); AST(SGOT) 17 U/L (15-37); Alanine Aminotransfer ALT/SGPT 42 U/L (13-56); Albumin, Serum 4.1 g/dL (3.2-5.0); Alkaline Phosphatase 98 U/L (45-117); Anion Gap 8 (5-15); BUN 14 mg/dL (7-18); BUN/Creat Ratio 15.8 RATIO (10-20); Calcium,Total 9.1 mg/dL (8.5-10.1); Chloride 104 mmol/L (98-107); Cholesterol 220 mg/dL (200); Creatinine, Serum 0.88 mg/dL (0.55-1.02); EST Glomerular Filtration Rate 78 mL/min (>60); Est Glom Filt Rate - Afr Amer 95 mL/min (>60); Ferritin 113 ng/mL (8-252); Globulin 3.8 g/dL (2.2-4.2); Glucose 96 mg/dL (74-106); High Density Lipoprotein 51 mg/dL; Potassium 3.9 mmol/L (3.5-5.1); Protein, Total 7.9 g/dL (6.4-8.2); Sodium Level 139 mmol/L (136-145); T4 Free Direct 1.53 ng/dL (0.76-1.46); Thyroid Stim Hormone (TSH) 0.99 uIU/mL (0.358-3.74); Triglycerides 73 mg/dL; Very Low Density Lipoprotein 15 mg/dL (5-40)
[2022-05-17 21:37] LABS: Anti-Thyroglobulin AB < 1.0 IU/mL (0.0-0.9); Thyroglobulin, Serum Qt. < 0.1 ng/mL (1.5-38.5)
== END | disposition home or self-care (01) ==
LOC: LAB 09:36
PROVIDERS: PCP Family Medicine; Referring Provider Internal Medicine Endocrinology, Diabetes & Metabolism; Visit Provider Internal Medicine Endocrinology, Diabetes & Metabolism
DX: E89.0 Postprocedural hypothyroidism (principal); C73 Malignant neoplasm of thyroid gland; N91.2 Amenorrhea, unspecified; E55.9 Vitamin D deficiency, unspecified; R53.81 Other malaise; R53.83 Other fatigue
CPT/HCPCS: 36415; 80053; 80061; 82306; 82728; 84432; 84439; 84443; 85025; 86800

== ENCOUNTER → 2022-10-25 | Outpatient (CLI) | payer OTHER, SELFPAY ==
[2022-10-25 16:00] LABS: Absolute Lymphocyte Count 2.07 X10^3/uL (0.83-4.51); Absolute Neutrophil Count 4.2 X10^3/uL (2.0-7.7); Basophil# 0.05 X10^3/uL; Basophil% 0.7 % (0-1); Eosinophil# 0.06 X10^3/uL; Eosinophils% 0.9 % (0-5); Hematocrit 44.8 % (37-47); Hemoglobin 14.9 g/dL (12.0-15.0); Lymphocyte # 2.07 X10^3/ul (0.83-4.51); Lymphocyte % 30.2 % (19-41); Mean Corp Hgb Conc 33.3 g/dL (32-36); Mean Corpuscular Hgb 30.5 pg (27.0-32.0); Mean Corpuscular Volume 91.8 fL (81-99); Mean Platelet Vol. 11.2 fl (6.2-12.0); Monocyte# 0.46 X10^3/uL; Monocyte% 6.7 % (0-10); NRBC Flagged by Analyzer 0 % (0-5); Neutrophil # 4.18 X10^3/uL (2.7-7.7); Neutrophil % 61.1 % (47-70); Platelet Count 288 K/mm3 (150-450); RBC Distribution Width CV 12.4 % (11.6-14.6); Red Blood Count 4.88 M/mm3 (4.2-5.4); White Blood Count 6.9 K/mm3 (4.4-11.0)
[2022-10-25 17:51] LABS: ALB/GLOB Ratio 1.3 RATIO (0.9-2.4); AST(SGOT) 33 U/L (15-37); Alanine Aminotransfer ALT/SGPT 51 U/L (13-56); Albumin, Serum 4.1 g/dL (3.2-5.0); Alkaline Phosphatase 115 U/L (45-117); Anion Gap 7 (5-15); BUN 9 mg/dL (7-18); BUN/Creat Ratio 10.6 RATIO (10-20); Chloride 105 mmol/L (98-107); Creatinine, Serum 0.85 mg/dL (0.55-1.02); EST Glomerular Filtration Rate 82 mL/min (>60); Est Glom Filt Rate - Afr Amer 99 mL/min (>60); Estradiol 51.8 pg/mL; Globulin 3.2 g/dL (2.2-4.2); Glucose 79 mg/dL (74-106); Potassium 4.4 mmol/L (3.5-5.1); Protein, Total 7.3 g/dL (6.4-8.2); Sodium Level 141 mmol/L (136-145)
== END | disposition home or self-care (01) ==
LOC: MFPLAB 12:10
PROVIDERS: PCP Family Medicine; Visit Provider Family Medicine
DX: E03.9 Hypothyroidism, unspecified (principal); F31.81 Bipolar II disorder; R53.83 Other fatigue
CPT/HCPCS: 36415; 80053; 82140; 82542; 82670; 84439; 84443; 84481; 85025

== ENCOUNTER → 2023-02-19 | Outpatient (CLI) | payer OTHER, SELFPAY ==
[2023-02-19 12:36] LABS: Absolute Lymphocyte Count 2.25 X10^3/uL (0.83-4.51); Absolute Neutrophil Count 5.3 X10^3/uL (2.0-7.7); Basophil# 0.06 X10^3/uL; Basophil% 0.7 % (0-1); Eosinophil# 0.07 X10^3/uL; Eosinophils% 0.9 % (0-5); Hematocrit 42.9 % (37-47); Hemoglobin 14.2 g/dL (12.0-15.0); Lymphocyte # 2.25 X10^3/ul (0.83-4.51); Lymphocyte % 27.5 % (19-41); Mean Corp Hgb Conc 33.1 g/dL (32-36); Mean Corpuscular Hgb 30.5 pg (27.0-32.0); Mean Corpuscular Volume 92.3 fL (81-99); Mean Platelet Vol. 10.8 fl (6.2-12.0); Monocyte# 0.49 X10^3/uL; NRBC Flagged by Analyzer 0 % (0-5); Neutrophil # 5.29 X10^3/uL (2.7-7.7); Neutrophil % 64.5 % (47-70); Platelet Count 304 K/mm3 (150-450); RBC Distribution Width CV 12.4 % (11.6-14.6); Red Blood Count 4.65 M/mm3 (4.2-5.4); White Blood Count 8.2 K/mm3 (4.4-11.0)
[2023-02-19 13:04] LABS: ALB/GLOB Ratio 1.2 RATIO (0.9-2.4); AST(SGOT) 25 U/L (15-37); Alanine Aminotransfer ALT/SGPT 45 U/L (13-56); Albumin, Serum 4.1 g/dL (3.2-5.0); Alkaline Phosphatase 121 U/L (45-117); Anion Gap 4 (5-15); BUN 16 mg/dL (7-18); BUN/Creat Ratio 15.8 RATIO (10-20); Calcium,Total 9.3 mg/dL (8.5-10.1); Chloride 105 mmol/L (98-107); Creatinine, Serum 1.01 mg/dL (0.55-1.02); EST Glomerular Filtration Rate 67 mL/min (>60); Est Glom Filt Rate - Afr Amer 81 mL/min (>60); GGTP 77 U/L (5-55); Globulin 3.5 g/dL (2.2-4.2); Glucose 100 mg/dL (74-106); Potassium 4.2 mmol/L (3.5-5.1); Protein, Total 7.6 g/dL (6.4-8.2); Sodium Level 138 mmol/L (136-145); Thyroid Stim Hormone (TSH) 8.45 uIU/mL (0.358-3.74)
[2023-02-20 12:08] LABS: ANTINUCLEAR ANTIBODIES DIRECT Negative (Negative)
== END | disposition home or self-care (01) ==
LOC: MFPLAB 11:26
PROVIDERS: PCP Family Medicine; Visit Provider Family Medicine
DX: R53.83 Other fatigue (principal); R79.89 Other specified abnormal findings of blood chemistry
CPT/HCPCS: 36415; 80053; 82140; 82977; 84443; 85025; 86038; 86803; 86804

== ENCOUNTER → 2023-03-29 | Outpatient (CLI) | payer OTHER, SELFPAY ==
[2023-04-01 08:49] LABS: PTHIN 51.7 pg/mL (18.4-80.1)
== END | disposition home or self-care (01) ==
LOC: MFPLAB 15:06
PROVIDERS: PCP Family Medicine; Visit Provider Family Medicine
DX: R74.8 Abnormal levels of other serum enzymes (principal); R53.83 Other fatigue
CPT/HCPCS: 36415; 82533; 82627; 83970; 82626